=== PATIENT | female | born 1935 | race Caucasian/White ===

== ENCOUNTER → 2016-09-19 | Day surgery (SDC) | payer OTHER ==
[2016-09-14 15:28] VITALS: Ht 157.5 cm; Wt 71.8 kg
[~2016-09-19] VITALS: Ht 157.5 cm; Wt 71.8 kg
[~2016-09-19] MED LIST: ANT125 PO; ASPI-435 PO; ATV5X PO; CARV3.122 PO; CHOL100010 PO; CLOB-65 EXT; COEN75CA PO; CRFL PO; CRS10 PO; LIDO2SOL17 PO; LIDOCAINE HCL 2% 2 ML VIAL (20MG/ML) ONE; LISI-786 PO; LRS10 PO; NTRGSL/4 SL; OMEP40CA PO; ONDA4TAB46 PO; POTA20TA16 PO; PROPOFOL IV EMULSION 10 MG/ML 20 ML VIAL IV ONE; SODIUM CHLORIDE 0.9% 500ML 500 ML IV ONE
--- NOTE | 2016-09-19 09:42 | Endo History and Physical ---
History & Physical Date of Service: Sep 19, 2016. Chief Complaint: Abdominal bloating Referring Physician: Agustina Brcieno History of Present Illness bloating for 8 weeks; poor appetite, weight loss; dysphagia Past Medical History Angioplasty/Stent, Osteoporosis, Arthritis, Gastrointestinal Disorder, Reflux, Cancer, High Cholesterol, CABG, Hypertension, [place] Past Surgical History Hx Cardiac Surgery: Yes (HEART CATH, STENT X3, CABG X3 VESSELS) Hx Internal Defibrillator: No Hx Pacemaker: No Hx Abdominal Surgery: Yes (COLON RESECTION WITH BLADDER REPAIR, DENA) Hx of Implantable Prosthesis: No Hx Post-Op Nausea and Vomiting: No Hx Cancer Surgery: Yes (RT BREAST LUMPECTOMY AND LT BREAST PARTIAL MASTECTOMY) Hx Thoracic Surgery: No Hx Orthopedic: No Hx Urinary Tract Surgery: No Family History Colon CA Social History Smoking Status: Never Smoker Hx Substance Use: No Hx Alcohol Use: No Allergies Coded Allergies: Niacin (Verified Allergy, Severe, ANAPHYLAXIS, 09/14/16) Sulfa Antibiotics (Verified Allergy, Severe, Tongue Soreness,MOUTH/THROAT SWELLING, 09/14/16) mouth and throat swelling Penicillins (Verified Allergy, Intermediate, Hives, 09/14/16) hives Clarithromycin (Verified Allergy, Mild, Rash, Diarrhea , Shakiness, 09/14/16 ) Doxycycline (Verified Allergy, Unknown, Unknown, 09/14/16) Isosorbide Nitrate (Verified Allergy, Unknown, Unknown, 09/14/16) Ciprofloxacin (Verified Adverse Reaction, Intermediate, Heart Races, ) Metoclopramide (Verified Adverse Reaction, Intermediate, Migraines, 09/14/16 ) Ezetimibe (Verified Adverse Reaction, Mild, Stomach Cramps, 09/14/16) Gemfibrozil (Verified Adverse Reaction, Mild, Nausea, Heaviness in extremities,Muscle fatigue, 09/14/16) Morphine and Related (Verified Adverse Reaction, Mild, Nausea, 09/14/16) Nitrofurantoin (Verified Adverse Reaction, Mild, Headache/ Stomach pain, ) Statins (Verified Adverse Reaction, Mild, WEAKNESS IN ARMS AND LEGS, ) weakness in arms and legs Current Medications Reported Home Medications Medications Dose Route/Sig Max Daily Dose Days Date Category Klor-Con (Potassium Chloride) 20 Meq Tabcr 10 Meq PO NOON 04/14/15 Reported Prilosec (Omeprazole) 40 Mg Capcr 40 Mg PO BID 01/27/15 Reported Viscous Lidocaine 2% Soln (Lidocaine HCl) Soln 1 Tsp PO Q6H PRN 01/27/15 Reported Zofran (Ondansetron HCl) 4 Mg Tab 4 Mg PO Q6H PRN 01/27/15 Reported Baclofen 10 Mg Tab 10 Mg PO TID PRN 01/27/15 Reported Nitrostat (Nitroglycerin) 0.4 Mg Tab 1 Tab SL UD PRN 01/27/15 Reported Zestoretic (Lisinopril & Hydrochlorothiazi) 1 Tab Tab 10-12.5 Mg PO QAM 01/27/15 Reported Carafate (Sucralfate) 1 Gm/10 Ml Clarisa 10 Ml PO QID 08/20/14 Reported Meclizine HCl 12.5 Mg Tab 25 Mg PO PRN 08/20/14 Reported Temovate 0.05% (Clobetasol Propionate) Cr 1 Appln EXT PRN 03/29/14 Reported Lorazepam 0.5 Mg Tab 0.5 Mg PO HS PRN 10/09/13 Reported Vitamin D (Cholecalciferol) 1,000 Inter.unit Tab 2,000 Inter.unit PO QAM 10/09/13 Reported Co Q-10 (Coenzyme Q10 (Ubidecarenone)) 75 Mg Cap 100 Mg PO QAM 10/09/13 Reported Aspirin 81 (Aspirin) 81 Mg Tab 81 Mg PO HS 10/09/13 Reported Crestor (Rosuvastatin Calcium) 10 Mg Tab 10 Mg PO HS 10/09/13 Reported Coreg (Carvedilol) 3.125 Mg Tab 3.125 Tab PO BID 10/09/13 Reported Vital Signs Weight (Kilograms): 71.82 Height (Feet): 5 Height (Inches): 2 Physical Exam General Appearance: WD/WN, no apparent distress Assessment and Plan EGD today
--- NOTE | 2016-09-19 10:19 | GI REPORT ---
Procedure Date: 09/19/2016 9:35 AM Procedure: Upper GI endoscopy Indications: Anorexia, Abdominal bloating Medicines: Propofol per Anesthesia Complications: No immediate complications. Estimated Blood Loss: Estimated blood loss was minimal. Procedure: Pre-Anesthesia Assessment: - Prior to the procedure, a History and Physical was performed, and patient medications, allergies and sensitivities were reviewed. The patient's tolerance of previous anesthesia was reviewed. - The risks and benefits of the procedure and the sedation options and risks were discussed with the patient. All questions were answered and informed consent was obtained. - Patient identification and proposed procedure were verified prior to the procedure by the physician and the nurse. The procedure was verified in the pre-procedure area in the procedure room. - Mental Status Examination: alert and oriented. Airway Examination: normal oropharyngeal airway and neck mobility. Respiratory Examination: clear to auscultation. CV Examination: normal. Abdominal Examination: bowel sounds present, abdomen soft and non-tender, no masses or organomegaly noted. - ASA Grade Assessment: III - A patient with severe systemic disease. After obtaining informed consent, the endoscope was passed under direct vision. Throughout the procedure, the patient's blood pressure, pulse, and oxygen saturations were monitored continuously. The Scope was introduced through the mouth, and advanced to the second part of duodenum. The upper GI endoscopy was accomplished without difficulty. The patient tolerated the procedure well. Findings: The esophagus was normal. The entire examined stomach was normal. Biopsies were taken with a cold forceps for Helicobacter pylori testing. Verification of patient identification for the specimen was done by the physician and nurse using the patient's name and date. Estimated blood loss was minimal. The examined duodenum was normal. Impression: - Normal esophagus. - Normal stomach. Biopsied. - Normal examined duodenum. Recommendation: - Await pathology results. - Follow an antireflux regimen. - Continue present medications. - Return to primary care physician as previously scheduled. - Discharge patient to home. Delphine Guan D.O. Delphine Guan DO 09/19/2016 10:18:47 AM This report has been signed electronically. Note Initiated On: 09/19/2016 9:35 AM I attest to the content of the Intraoperative Record and orders documented therein, exceptions below
--- NOTE | 2016-09-19 10:27 | Anesthesiology Progress Note ---
Anesthesia Post Op Note Date & Time Sep 19, 2016 at 10:27 Vital Signs Pain Intensity: 0 Vital Signs Past 12 Hours Date Time Temp Pulse Resp B/P (MAP) Pulse Ox O2 Delivery O2 Flow Rate FiO2 09/19/16 10:18 54 12 128/62 (84) 98 Room Air 09/19/16 09:36 36.4 55 20 128/62 (84) 97 Room Air Notes Mental Status: alert / awake / arousable, participated in evaluation Pt Amnestic to Procedure: Yes Nausea / Vomiting: adequately controlled Pain: adequately controlled Airway Patency, RR, SpO2: stable & adequate BP & HR: stable & adequate Hydration State: stable & adequate Anesthetic Complications: no major complications apparent
--- NOTE | 2016-09-19 10:41 | Discharge Instructions ---
Endoscopy Patient Instructions Date / Procedure(s) Performed Sep 19, 2016. EGD Allergy Information Coded Allergies: Niacin (Verified Allergy, Severe, ANAPHYLAXIS, 09/14/16) Sulfa Antibiotics (Verified Allergy, Severe, Tongue Soreness,MOUTH/THROAT SWELLING, 09/14/16) mouth and throat swelling Penicillins (Verified Allergy, Intermediate, Hives, 09/14/16) hives Clarithromycin (Verified Allergy, Mild, Rash, Diarrhea , Shakiness, 09/14/16 ) Doxycycline (Verified Allergy, Unknown, Unknown, 09/14/16) Isosorbide Nitrate (Verified Allergy, Unknown, Unknown, 09/14/16) Ciprofloxacin (Verified Adverse Reaction, Intermediate, Heart Races, ) Metoclopramide (Verified Adverse Reaction, Intermediate, Migraines, 09/14/16 ) Ezetimibe (Verified Adverse Reaction, Mild, Stomach Cramps, 09/14/16) Gemfibrozil (Verified Adverse Reaction, Mild, Nausea, Heaviness in extremities,Muscle fatigue, 09/14/16) Morphine and Related (Verified Adverse Reaction, Mild, Nausea, 09/14/16) Nitrofurantoin (Verified Adverse Reaction, Mild, Headache/ Stomach pain, ) Statins (Verified Adverse Reaction, Mild, WEAKNESS IN ARMS AND LEGS, ) weakness in arms and legs Discharge Date / Findings Sep 19, 2016. normal EGD Medication Instructions Restart Stopped Medication(s): OK to resume all medications Provider Instructions Activity Restrictions - No exercising or heavy lifting for 24 hours. - Do not drink alcohol the day of the procedure. - Do not drive a car or operate machinery until the day after the procedure. - Do not make any important decisions or sign important papers in 24 hours after the procedure. Following Day: - Return to full activity which may include returning to work/school. Diet Start your diet with liquids and light foods (jello, soup, juice, toast). Then eat your usual diet if not nauseated. Treatment For Common After Affects For mild abdominal pain, bloating, or excessive gas: - Rest - Eat lightly - Lie on right side Follow-Up Information Follow-up with Agustina Briceno as scheduled Anesthesia Information What You Should Know You have had a procedure that required some medicine to reduce anxiety and discomfort. This treatment is called moderate sedation. After receiving the treatment, you may be sleepy, but you will be able to breathe on your own. The effects of the treatment may last for several hours. Follow these instructions along with Activity/Diet recommendations noted above: * Do NOT do anything where dizziness or clumsiness would be dangerous. * Rest quietly at home today, then you can be up and about tomorrow. * Have a responsible person stay with you the rest of today. * You may have had an I.V. today. If so, you may take the dressing off later today. Recommendations Call your doctor if: * Trouble breathing * Continuous vomiting for more than 24 hours * Temperature above 101 degrees * Severe abdominal pain or bloating * Pain not relieved by pain medicine ordered * There is increased drainage or redness from any incision * A large amount of rectal bleeding greater than 2-3 tablespoons. (If you had a polyp/s removed or have hemorrhoids, a small amount of blood - from the rectum is to be expected.) * You have any unanswered questions or concerns. IN THE EVENT OF A SERIOUS EMERGENCY, GO TO THE NEAREST EMERGENCY ROOM Your discharge instructions were prepared by provider Delphine Guan. Patient Instructions Signature Page Rin Jj Patient (or Guardian) Signature/Date: I have read and understand the instructions given to me by my caregivers. Caregiver/RN/Doctor Signature/Date: The above-named patient and/or guardian has received patient instructions on this date. + Original Patient Signature Page (only) stays with chart. Please make copy for patient.
[2016-09-19 10:48] VITALS: BP 151/62; PULSE 50; O2SAT 98
== END | disposition home or self-care (01) ==
LOC: C.GI 08:58
PROVIDERS: ATTEND Internal Medicine
DX: R14.0 Abdominal distension (gaseous) (principal); R63.0 Anorexia; R63.4 Abnormal weight loss; R13.10 Dysphagia, unspecified; Z95.5 Presence of coronary angioplasty implant and graft; M81.0 Age-related osteoporosis without current pathological fracture; M19.90 Unspecified osteoarthritis, unspecified site; K21.9 Gastro-esophageal reflux disease without esophagitis; E78.00 Pure hypercholesterolemia, unspecified; I10 Essential (primary) hypertension; Z90.49 Acquired absence of other specified parts of digestive tract; Z79.82 Long term (current) use of aspirin; I25.2 Old myocardial infarction; I25.10 Atherosclerotic heart disease of native coronary artery without angina pectoris; Z85.3 Personal history of malignant neoplasm of breast

== ENCOUNTER 2017-04-19 15:57 | Emergency (ER) | payer OTHER ==
[~2017-04-19] VITALS: Ht 157.5 cm; Wt 75.0 kg
[~2017-04-19 15:57] MED LIST changes: -LIDOCAINE HCL 2% 2 ML VIAL (20MG/ML) ONE; -NTRGSL/4 SL; -PROPOFOL IV EMULSION 10 MG/ML 20 ML VIAL IV ONE; -SODIUM CHLORIDE 0.9% 500ML 500 ML IV ONE
[2017-04-19 16:12] VITALS: Ht 157.5 cm; Wt 75.0 kg
[2017-04-19] MEDS ORDERED: NTRGSL/4 SL (18:42)
[2017-04-19 19:17] VITALS: O2SAT 95
[2017-04-19 19:29] LABS: BASO % 0.1 %; BASO ABS # 0.01 K/uL (0-0.2); EOS % 0.4 %; EOS ABS # 0.03 K/uL (0-0.5); HEMATOCRIT 43.3 % (37-47); HEMOGLOBIN 14.6 g/dL (12.0-16.0); IG# 0.03 K/uL (0.00-0.02); LYMPH % 17.4 %; LYMPH ABS # 1.41 K/uL (1.2-3.4); MEAN CELL VOLUME 93.3 fL (80-100); MEAN CORPUSCULAR HEMOGLOBIN 31.5 pg (25-34); MEAN CORPUSCULAR HGB CONC 33.7 g/dl (32-36); MEAN PLATELET VOLUME 10.1 fL (7.4-10.4); MONO % 5.9 %; MONO ABS # 0.48 K/uL (0.11-0.59); NEUT % 75.8 %; NEUT ABS # 6.15 K/uL (1.4-6.5); PLATELET COUNT 177 K/uL (130-400); RED CELL DISTRIBUTION WIDTH CV 15.2 % (11.5-14.5); RED CELL DISTRIBUTION WIDTH SD 51.7 fL (36.4-46.3); WHITE BLOOD COUNT 8.11 K/uL (4.8-10.8)
[2017-04-19 19:47] LABS: ALBUMIN 3.8 gm/dl (3.4-5.0); CALCIUM 9.3 mg/dl (8.5-10.1); CREATININE 1.24 mg/dl (0.60-1.20); POTASSIUM 3.6 mmol/L (3.5-5.1)
[2017-04-19 19:52] LABS: TOTAL PROTEIN 8.1 gm/dl (6.4-8.2)
[2017-04-19] MEDS ORDERED: SODIUM CHLORIDE 0.9% 500ML 500 ML IV STA (19:59)
--- NOTE | 2017-04-19 20:00 | DIAGNOSTIC IMAGING REPORT ---
CHEST ONE VIEW PORTABLE CLINICAL HISTORY: CHEST PAIN dyspnea COMPARISON STUDY: 01/27/2015 FINDINGS: Prior median sternotomy. Diaphragms are smooth. Lungs are considered clear. Minimal plate like atelectasis left midlung. IMPRESSION: Chronic and postoperative change. No acute process. The above report was generated using voice recognition software. It may contain grammatical, syntax or spelling errors. Electronically signed by: Herberth Mullen M.D. 04/19/2017 7:58 PM Dictated Date/Time: 04/19/2017 7:58 PM
[2017-04-19] MEDS ORDERED: CRFL PO (20:20)
[2017-04-19] MEDS ORDERED: ANT25 PO (20:20)
[2017-04-19] MEDS ORDERED: PRED-301 PO (20:20)
[2017-04-19] MEDS ORDERED: TIZA4CAP PO (20:20)
[2017-04-19] MEDS ORDERED: OMEP40CA41 PO (20:20)
[2017-04-19] MEDS ORDERED: ULT50 PO (20:20)
[2017-04-19] MEDS ORDERED: APR25 PO (20:20)
[2017-04-19] MEDS ORDERED: CRS/10 PO (20:20)
[2017-04-19] MEDS ORDERED: PRD/1 PO (20:20)
[2017-04-19] MEDS ORDERED: ACET-1256 PO (20:20)
[2017-04-19] MEDS ORDERED: CHOL100027 PO (20:20)
[2017-04-19] MEDS ORDERED: LSN/10125 PO (20:20)
--- NOTE | 2017-04-19 20:23 | EMERGENCY ROOM VISIT NOTE ---
History Report prepared by [place]: Tanya Luna Under the Supervision of: Gm HassanO. First contact with patient: 18:47 Chief Complaint: REFERRED BY DOCTOR Stated Complaint: HIGH BLOOD PRESSURE;DOC REFERRED History of Present Illness The patient is a 82 year old female who presents to the Emergency Room with complaints of persistent hypertension that began around 0230. The patient states that she woke up around 0230 this morning and noticed her mouth was very dried and she had some pain on the back of her head. She reports that she stayed up most of the night because she was worried it did not feel right, noting that she took her medication for hypertension. The patient states that she was able to fall asleep around 0500 and woke up around 0730, noting that her symptoms had not relieved. At this time when the patient checked her blood pressure it was 218/100. She notes that she contacted her real property appraiser who suggested she come to the Emergency Department for further evaluation. The patient denies any current discomfort, shortness of breath, nausea, vomiting, diarrhea, headaches, difficulty walking, or chest pain. She notes that her hypertension medication has been altered recently because she was experiencing very low blood pressures. The patient states that she has a heart murmur. Source of History: patient Onset: 0230 Position: other (global) Quality: other (hypertension) Timing: other (persistent) Associated Symptoms: No headache, No chest pain, No SOB, No nausea, No vomiting, No diarrhea Note: Patient denies difficulty walking. Review of Systems See HPI for pertinent positives & negatives. A total of 10 systems reviewed and were otherwise negative. Past Medical & Surgical Medical Problems: (1) Breast cancer (2) Dizziness (3) Gastroparesis (4) HTN (hypertension) (5) CA (mitral incompetence) (6) Torturous esophagus Surgical Problems: (1) Hx of cholecystectomy (2) Hx of heart artery stent (3) S/P CABG x 3 Family History Cancer FHx: gallbladder disease Hypertension Social History Smoking Status: Never Smoker Alcohol Use: none Marital Status: Housing Status: lives with significant other Occupation Status: retired Current/Historical Medications Scheduled Aspirin (Aspirin 81), 81 MG PO HS Carvedilol (Coreg), 3.125 MG PO BID Cholecalciferol (Vitamin D 1000 Unit), 2,000 INTER.UNIT PO DAILY Clobetasol Propionate (Clobetasol Propionate Cream 0.05%), 1 APPLN EXT PRN UD Coenzyme Q10 (Ubidecarenone) (Co Q-10), 100 MG PO QAM Hctz/Lisinopril (Lisinopril/Hctz 10/12.5 Mg), 1 TAB PO DAILY Hydralazine Hcl (Apresoline), 0.5 TAB PO TID Prednisone (Prednisone), MG PO UD Prednisone (Prednisone), 5 MG PO DAILY Rosuvastatin Calcium (Crestor), 10 MG PO DAILY Scheduled PRN Acetaminophen (Tylenol), 1,000 MG PO Q6 PRN for Pain or Fever Dicyclomine Hcl (Bentyl), 10 MG PO BID PRN for ABD PAIN Lorazepam (Lorazepam), 0.5 MG PO Q8 PRN for Anxiety Meclizine HCl (Meclizine HCl), 25 MG PO TID PRN for Dizziness or Vertigo Nitroglycerin (Nitrostat), 1 TAB SL UD PRN for Chest Pain Omeprazole (Prilosec), 40 MG PO BID PRN for ACID REFLUX Sucralfate (Carafate), 10 ML PO QID PRN for Tizanidine (Zanaflex), 2 MG PO Q6 PRN for Muscle Spasms Tramadol HCl (Tramadol HCl), 0.5 TAB PO Q8 PRN for Pain Allergies Coded Allergies: Domperidone (Verified Allergy, Severe, HEADACE, ITCHING, STOMACH PAIN, 04/19) Lovastatin (Verified Allergy, Severe, MUSCLE PAIN, 04/19/17) Niacin (Verified Allergy, Severe, ANAPHYLAXIS, 09/14/16) Sulfa Antibiotics (Verified Allergy, Severe, Tongue Soreness,MOUTH/THROAT SWELLING, 09/14/16) mouth and throat swelling Penicillins (Verified Allergy, Intermediate, Hives, 09/14/16) hives Clarithromycin (Verified Allergy, Mild, Rash, Diarrhea , Shakiness, 09/14/16 ) Doxycycline (Verified Allergy, Unknown, Unknown, 09/14/16) Isosorbide Nitrate (Verified Allergy, Unknown, Unknown, 09/14/16) Amlodipine (Verified Adverse Reaction, Severe, NAUSEA/VOMITING, 04/19/17) Atorvastatin (Verified Adverse Reaction, Intermediate, MUSCLE ACHES, ) Ciprofloxacin (Verified Adverse Reaction, Intermediate, Heart Races, ) Metoclopramide (Verified Adverse Reaction, Intermediate, Migraines, 09/14/16 ) Ezetimibe (Verified Adverse Reaction, Mild, Stomach Cramps, 09/14/16) Gemfibrozil (Verified Adverse Reaction, Mild, Nausea, Heaviness in extremities,Muscle fatigue, 09/14/16) Morphine and Related (Verified Adverse Reaction, Mild, Nausea, 09/14/16) Nitrofurantoin (Verified Adverse Reaction, Mild, Headache/ Stomach pain, ) Statins (Verified Adverse Reaction, Mild, WEAKNESS IN ARMS AND LEGS, ) weakness in arms and legs Physical Exam Vital Signs Date Time Temp Pulse Resp B/P (MAP) Pulse Ox O2 Delivery O2 Flow Rate FiO2 04/19/17 21:50 36.7 59 20 180/80 95 04/19/17 21:32 59 20 180/80 95 Room Air 04/19/17 20:50 62 20 203/86 Room Air 04/19/17 20:06 69 20 198/107 93 Room Air 04/19/17 19:31 60 19 119/54 95 Room Air 04/19/17 19:30 66 04/19/17 19:17 95 Room Air 04/19/17 16:12 36.7 70 16 138/73 95 Room Air Physical Exam GENERAL: Patient is awake, alert, and in no acute distress. Patient is resting comfortably and showing no signs of anxiety EYES: The conjunctivae are clear. The pupils are round and reactive. EARS, NOSE, MOUTH AND THROAT: The nose is without any evidence of any deformity. Mucous membranes are moist tongue is midline NECK: The neck is nontender and supple. RESPIRATORY: Normal respiratory effort is noted there is no evidence of wheezing rhonchi or rales CARDIOVASCULAR: Regular rate and rhythm noted, systolic murmur was suggested, and no rubs or gallops normal S1 normal S2 GASTROINTESTINAL: The abdomen is soft. Bowel sounds are present in all quadrants. Abdomen is nontender MUSCULOSKELETAL/EXTREMITIES: There is no evidence of gross deformity full range of motion is noted in the hips and shoulders SKIN: There is no obvious evidence of any rash. There are no petechiae, pallor or cyanosis noted. NEUROLOGIC: Patient is awake alert and oriented x3 strength is symmetric patellar reflexes are 2+ bilaterally Medical Decision & Procedures ER Provider Diagnostic Interpretation: Radiology results as stated below per my review and radiologist interpretation: CHEST ONE VIEW PORTABLE CLINICAL HISTORY: CHEST PAIN dyspnea COMPARISON STUDY: 01/27/2015 FINDINGS: Prior median sternotomy. Diaphragms are smooth. Lungs are considered clear. Minimal plate like atelectasis left midlung. IMPRESSION: Chronic and postoperative change. No acute process. The above report was generated using voice recognition software. It may contain grammatical, syntax or spelling errors. Electronically signed by: Herberth Mullen M.D. 04/19/2017 7:58 PM Dictated Date/Time: 04/19/2017 7:58 PM Laboratory Results 04/19/17 19:10 Red Blood Count 4.64, Mean Corpuscular Volume 93.3, Mean Corpuscular Hemoglobin 31.5, Mean Corpuscular Hemoglobin Concent 33.7, Mean Platelet Volume 10.1, Neutrophils (%) (Auto) 75.8, Lymphocytes (%) (Auto) 17.4, Monocytes (%) (Auto) 5.9, Eosinophils (%) (Auto) 0.4, Basophils (%) (Auto) 0.1, Neutrophils # (Auto) 6.15, Lymphocytes # (Auto) 1.41, Monocytes # (Auto) 0.48, Eosinophils # (Auto) 0.03, Basophils # (Auto) 0.01 04/19/17 19:10 Test 04/19/17 19:10 White Blood Count 8.11 K/uL (4.8-10.8) Red Blood Count 4.64 M/uL (4.2-5.4) Hemoglobin 14.6 g/dL (12.0-16.0) Hematocrit 43.3 % (37-47) Mean Corpuscular Volume 93.3 fL (80-100) Mean Corpuscular Hemoglobin 31.5 pg (25-34) Mean Corpuscular Hemoglobin Concent 33.7 g/dl (32-36) Platelet Count 177 K/uL (130-400) Mean Platelet Volume 10.1 fL (7.4-10.4) Neutrophils (%) (Auto) 75.8 % Lymphocytes (%) (Auto) 17.4 % Monocytes (%) (Auto) 5.9 % Eosinophils (%) (Auto) 0.4 % Basophils (%) (Auto) 0.1 % Neutrophils # (Auto) 6.15 K/uL (1.4-6.5) Lymphocytes # (Auto) 1.41 K/uL (1.2-3.4) Monocytes # (Auto) 0.48 K/uL (0.11-0.59) Eosinophils # (Auto) 0.03 K/uL (0-0.5) Basophils # (Auto) 0.01 K/uL (0-0.2) RDW Standard Deviation 51.7 fL (36.4-46.3) RDW Coefficient of Variation 15.2 % (11.5-14.5) Immature Granulocyte % (Auto) 0.4 % Immature Granulocyte # (Auto) 0.03 K/uL (0.00-0.02) Anion Gap 5.0 mmol/L (3-11) Est Creatinine Clear Calc Drug Dose 33.7 ml/min Estimated GFR () 47.2 Estimated GFR (Non- 40.7 BUN/Creatinine Ratio 17.2 (10-20) Calcium Level 9.3 mg/dl (8.5-10.1) Total Bilirubin 0.5 mg/dl (0.2-1) Direct Bilirubin 0.1 mg/dl (0-0.2) Aspartate Amino Transf (AST/SGOT) 16 U/L (15-37) Alanine Aminotransferase (ALT/SGPT) 28 U/L (12-78) Alkaline Phosphatase 65 U/L (45-117) Troponin I 0.019 ng/ml (0-0.045) Total Protein 8.1 gm/dl (6.4-8.2) Albumin 3.8 gm/dl (3.4-5.0) Lipase 138 U/L (73-393) Medications Administered Medications (Trade) Dose Ordered Sig/Fabricio Route Start Time Stop Time Status Last Admin Dose Admin Sodium Chloride 500 ml @ 999 mls/hr Q31M STAT IV 04/19/17 19:59 04/19/17 20:29 DC 04/19/17 20:09 999 MLS/HR ECG Indication: other (hypertension) Rate (beats per minute): 60 Rhythm: normal sinus Findings: no ectopy, other (no acute ST abnormalities and LVF noted) Change: no significant change (01/27/15) Change: Patient's electrocardiogram as interpreted by me. ED Course 1848: The patient was evaluated in room B8. A complete history and physical examination were performed. 1958: Ordered Sodium Chloride 500ml @ 999 mls/hr IV. 2019: Upon reevaluation, the patient is resting comfortably. I discussed the results and treatment plan with her. She verbalized agreement of the treatment plan. The patient was discharged home. Medical Decision Prior records/ancillary studies reviewed regarding the history above. Triage Nursing notes reviewed. The patient's history was concerning for hypertension. Differential diagnosis: Etiologies such as benign hypertension, hypertensive emergency, cardiovascular pathology, pheochromocytoma, electrolyte abnormality, renal disease, endorgan damage, as well as others were entertained. Patient is an 82-year-old female who presented to the emergency department for an evaluation of elevated blood pressure. At this time the patient does not have any symptoms. She denies having any chest pain or shortness of breath. She has no focal neurologic deficits. I discussed the patient's laboratory and radiographic studies with her. She was found to have a mild elevation in her creatinine compared to baseline. She was treated with IV fluids. She continued to have an elevation in her blood pressure. She recently had her blood pressure medications decreased. She was encouraged to go back to her original dose of her blood pressure medication and then follow-up with her primary care physician for further evaluation. She was also encouraged to rest and avoid any strenuous activity. He was also encouraged to return the emergency department immediately if symptoms change or worsen or the need arises. Medication Reconcilliation Current Medication List: was personally reviewed by me Blood Pressure Screening Patient's blood pressure: Elevated blood pressure Blood pressure disposition: Elevated BP felt to be situational Impression Primary Impression: HTN (hypertension) Additional Impression: Dehydration Scribe Attestation The scribe's documentation has been prepared under my direction and personally reviewed by me in its entirety. I confirm that the note above accurately reflects all work, treatment, procedures, and medical decision making performed by me. Departure Information Dispostion Home / Self-Care Referrals Iftikhar Frye D.O. (PCP) Forms HOME CARE DOCUMENTATION FORM, IMPORTANT VISIT INFORMATION, WORK / SCHOOL INSTRUCTIONS Patient Instructions My [facility] Problem Qualifiers Primary Impression: HTN (hypertension) Hypertension type: unspecified Qualified Codes: I10 - Essential (primary) hypertension
[2017-04-19] MEDS ORDERED: CLBCRM30 EXT (20:39)
[2017-04-19] MEDS ORDERED: DICY10CA55 PO (20:42)
[2017-04-19] MEDS ORDERED: CARV3.122 PO (20:42)
[2017-04-19 21:50] VITALS: BP 180/80; PULSE 59; TEMP 36.7; O2SAT 95
== END 2017-04-19 21:50 | disposition home or self-care (01) ==
LOC: C.EDB 15:58
DX: I10 Essential (primary) hypertension (principal); E86.0 Dehydration; R79.89 Other specified abnormal findings of blood chemistry; R01.1 Cardiac murmur, unspecified; I34.0 Nonrheumatic mitral (valve) insufficiency; Z95.1 Presence of aortocoronary bypass graft; Z95.5 Presence of coronary angioplasty implant and graft; Z79.82 Long term (current) use of aspirin; Z79.52 Long term (current) use of systemic steroids; Z88.8 Allergy status to other drugs, medicaments and biological substances; Z88.0 Allergy status to penicillin; Z88.2 Allergy status to sulfonamides; Z88.1 Allergy status to other antibiotic agents; Z88.6 Allergy status to analgesic agent; Z82.49 Family history of ischemic heart disease and other diseases of the circulatory system; Z83.79 Family history of other diseases of the digestive system

== ENCOUNTER 2017-08-02 12:30 | Emergency (ER) | payer OTHER ==
[~2017-08-02] VITALS: Ht 157.5 cm; Wt 73.4 kg
[~2017-08-02 12:30] MED LIST changes: +ACET-1256 PO; -ANT125 PO; +ANT25 PO; +APR25 PO; -CHOL100010 PO; +CHOL100027 PO; +CLBCRM30 EXT; -CLOB-65 EXT; +CRS/10 PO; -CRS10 PO; +DICY10CA55 PO; -LIDO2SOL17 PO; -LISI-786 PO; -LRS10 PO; +LSN/10125 PO; +NTRGSL/4 SL; -OMEP40CA PO; +OMEP40CA41 PO; -ONDA4TAB46 PO; -POTA20TA16 PO; +PRD/1 PO; +PRED-301 PO; +TIZA4CAP PO; +ULT50 PO
[2017-08-02 12:52] VITALS: TEMP 36.8; Ht 157.5 cm; Wt 73.4 kg
[2017-08-02] MEDS ORDERED: ONDANSETRON INJ 2 MG/ML 2 ML VIAL IV STA (13:21)
[2017-08-02] MEDS ORDERED: OPTIRAY 320 IV PRN (13:30)
[2017-08-02] MEDS ORDERED: LISI-729 PO (14:59)
[2017-08-02] MEDS ORDERED: PRED-301 PO (15:00)
[2017-08-02 15:09] LABS: BASO % 0.5 %; BASO ABS # 0.03 K/uL (0-0.2); EOS % 1.7 %; EOS ABS # 0.11 K/uL (0-0.5); HEMATOCRIT 42.4 % (37-47); IG# 0.01 K/uL (0.00-0.02); MEAN CELL VOLUME 95.9 fL (80-100); MEAN CORPUSCULAR HEMOGLOBIN 31.7 pg (25-34); MEAN PLATELET VOLUME 10.8 fL (7.4-10.4); MONO % 7.1 %; MONO ABS # 0.45 K/uL (0.11-0.59); NEUT % 71.5 %; NEUT ABS # 4.51 K/uL (1.4-6.5); PLATELET COUNT 208 K/uL (130-400); RED CELL DISTRIBUTION WIDTH CV 13.5 % (11.5-14.5); RED CELL DISTRIBUTION WIDTH SD 47.1 fL (36.4-46.3); WHITE BLOOD COUNT 6.31 K/uL (4.8-10.8)
[2017-08-02 15:28] LABS: ALBUMIN 3.8 gm/dl (3.4-5.0); CALCIUM 9.1 mg/dl (8.5-10.1); CREATININE 1.3 mg/dl (0.60-1.20); POTASSIUM 3.8 mmol/L (3.5-5.1)
--- NOTE | 2017-08-02 15:51 | DIAGNOSTIC IMAGING REPORT ---
CT SCAN OF THE ABDOMEN AND PELVIS WITH IV CONTRAST CLINICAL HISTORY: Lower abdominal pain. COMPARISON STUDY: Fluoroscopic upper GI series dated 06/27/2012. TECHNIQUE: Following the IV administration of 93 cc of Optiray 320, CT scan of the abdomen and pelvis is performed from the lung bases to the proximal femora. Images are reviewed in the axial, sagittal, and coronal planes. IV contrast was administered without complication. A dose lowering technique was utilized adhering to the principles of ALARA. CT DOSE: 938.74 mGycm FINDINGS: Lung bases: The patient is status post midline sternotomy. The heart is mildly enlarged and without pericardial effusion. The coronary arteries are densely calcified. Scarring versus atelectasis is noted in the lingula. The lung bases are otherwise clear. Liver: The contrast-enhanced liver is normal in size, contour, and attenuation. Fatty infiltration is noted adjacent to falciform ligament. There is no intrahepatic biliary ductal dilatation. The hepatic veins and portal veins are patent. Gallbladder: Surgically absent. Spleen: Normal in size and attenuation. Pancreas: Atrophic and grossly unremarkable. Adrenal glands: Unremarkable. Kidneys: The contrast enhanced kidneys are atrophic and without hydronephrosis. The kidneys enhance symmetrically. Scattered subcentimeter cortical hypodensities likely represent cysts but are too small for definitive characterization. Abdominal vasculature: The abdominal aorta is normal in course and caliber noting advanced atherosclerotic calcification. Bowel: There is mild to moderate colonic diverticulosis without CT evidence of acute diverticulitis. No bowel obstruction is seen. The appendix is well-visualized and normal. Peritoneum: There is no intraperitoneal free air or abdominal ascites. Lymphadenopathy: None. Pelvic viscera: The bladder, uterus, and adnexa are normal as visualized. Skeletal structures: The skeletal structures are osteopenic. There is [id number] lumbosacral spondylosis. No lytic or blastic lesions are seen. There are bilateral pars defects at L5. IMPRESSION: 1. There are no acute infectious or inflammatory findings in the abdomen or pelvis. 2. Mild to moderate colonic diverticulosis without CT evidence of acute diverticulitis. 3. Cardiomegaly. Electronically signed by: Scotty Dominguez M.D. 08/02/2017 3:50 PM Dictated Date/Time: 08/02/2017 3:44 PM
[2017-08-02 17:01] VITALS: BP 175/70; PULSE 69; O2SAT 94
--- NOTE | 2017-08-02 18:56 | EMERGENCY ROOM VISIT NOTE ---
History Report prepared by [place]: Emelyn Kahn Under the Supervision of: Dr. Janak Duran M.D. First contact with patient: 13:14 Chief Complaint: ABDOMINAL PAIN Stated Complaint: BLOOD PRESSURE,ABD PAIN History of Present Illness The patient is an 82 year old female who presents to the Emergency Room with complaints of lower abdominal pain beginning 2 weeks ago. She describes the pain as cramping and states that it also radiates to her upper abdomen. The patient states that eating exacerbates her pain. She reports feeling nauseous and having diarrhea, but denies vomiting, chest pain, and shortness of breath. She states that her diarrhea has not been bloody. The patient states that she has been taking liquid antacid reliever which she states may have been causing her diarrhea as it has in the past. She denies recent foreign travel and antibiotic use. Source of History: patient Onset: 2 weeks ago Position: abdomen (lower) Quality: cramping Modifying Factors (Worsening): eating Associated Symptoms: + nausea, + diarrhea, No chest pain, No SOB, No vomiting, No melena, No hematochezia Note: denies: bloody diarrhea Review of Systems See HPI for pertinent positives & negatives. A total of 10 systems reviewed and were otherwise negative. Past Medical & Surgical Medical Problems: (1) Breast cancer (2) Dizziness (3) Gastroparesis (4) HTN (hypertension) (5) OK (mitral incompetence) (6) Torturous esophagus Surgical Problems: (1) Hx of cholecystectomy (2) Hx of heart artery stent (3) S/P CABG x 3 Family History Cancer FHx: gallbladder disease Hypertension Social History Smoking Status: Never Smoker Alcohol Use: none Marital Status: Housing Status: lives with significant other Occupation Status: retired Current/Historical Medications Scheduled Aspirin (Aspirin 81), 81 MG PO HS Carvedilol (Coreg), 3.125 MG PO BID Cholecalciferol (Vitamin D 1000 Unit), 2,000 INTER.UNIT PO DAILY Clobetasol Propionate (Clobetasol Propionate Cream 0.05%), 1 APPLN EXT PRN UD Coenzyme Q10 (Ubidecarenone) (Co Q-10), 100 MG PO QAM Lisinopril (Zestril), 5 MG PO DAILY Prednisone (Prednisone), 5 MG PO DAILY Rosuvastatin Calcium (Crestor), 10 MG PO DAILY Scheduled PRN Acetaminophen (Tylenol), 1,000 MG PO Q6 PRN for Pain or Fever Dicyclomine Hcl (Bentyl), 10 MG PO BID PRN for ABD PAIN Lorazepam (Lorazepam), 0.5 MG PO Q8 PRN for Anxiety Meclizine HCl (Meclizine HCl), 25 MG PO TID PRN for Dizziness or Vertigo Nitroglycerin (Nitrostat), 1 TAB SL UD PRN for Chest Pain Omeprazole (Prilosec), 40 MG PO BID PRN for ACID REFLUX Tramadol HCl (Tramadol HCl), 0.5 TAB PO Q8 PRN for Pain Allergies Coded Allergies: Domperidone (Verified Allergy, Severe, HEADACE, ITCHING, STOMACH PAIN, ) Lovastatin (Verified Allergy, Severe, MUSCLE PAIN, 08/02/17) Niacin (Verified Allergy, Severe, ANAPHYLAXIS, 08/02/17) Sulfa Antibiotics (Verified Allergy, Severe, Tongue Soreness,MOUTH/THROAT SWELLING, 08/02/17) mouth and throat swelling Penicillins (Verified Allergy, Intermediate, Hives, 08/02/17) hives Clarithromycin (Verified Allergy, Mild, Rash, Diarrhea , Shakiness, ) Doxycycline (Verified Allergy, Unknown, Unknown, 08/02/17) Isosorbide Nitrate (Verified Allergy, Unknown, Unknown, 08/02/17) Amlodipine (Verified Adverse Reaction, Severe, NAUSEA/VOMITING, 08/02/17) Atorvastatin (Verified Adverse Reaction, Intermediate, MUSCLE ACHES, ) Ciprofloxacin (Verified Adverse Reaction, Intermediate, Heart Races, ) Metoclopramide (Verified Adverse Reaction, Intermediate, Migraines, ) Ezetimibe (Verified Adverse Reaction, Mild, Stomach Cramps, 08/02/17) Gemfibrozil (Verified Adverse Reaction, Mild, Nausea, Heaviness in extremities,Muscle fatigue, 08/02/17) Morphine and Related (Verified Adverse Reaction, Mild, Nausea, 08/02/17) Nitrofurantoin (Verified Adverse Reaction, Mild, Headache/ Stomach pain, ) Statins (Verified Adverse Reaction, Mild, WEAKNESS IN ARMS AND LEGS, ) weakness in arms and legs Physical Exam Vital Signs Date Time Temp Pulse Resp B/P (MAP) Pulse Ox O2 Delivery O2 Flow Rate FiO2 08/02/17 17:01 69 18 175/70 94 08/02/17 15:52 67 18 93 Room Air 180/75 08/02/17 15:10 65 18 206/76 93 Room Air 08/02/17 13:24 63 08/02/17 12:52 36.8 86 20 133/80 95 Room Air Physical Exam Constitutional: Vital signs reviewed. Eyes: Pupils are equal round reactive to light. Conjunctiva are noninjected. ENT: Pharynx is clear without erythema or exudate. Mucous membranes are moist. Neck supple without meningeal signs. Respiratory: Clear to auscultation bilaterally. Breath sounds are equal bilaterally. Cardiovascular: Regular rate and rhythm. No rubs or gallops. GI: Soft, nondistended. Lower abdominal tenderness. No guarding. Bowel sounds are present. Musculoskeletal: No peripheral edema. No lower extremity tenderness. Integumentary: No cyanosis. Neurological: The patient is awake and alert. No focal deficits. Psychiatric: Normal affect. Medical Decision & Procedures ER Provider Diagnostic Interpretation: Radiology results as stated below per my review and the radiologist's interpretation: CT SCAN OF THE ABDOMEN AND PELVIS WITH IV CONTRAST CLINICAL HISTORY: Lower abdominal pain. COMPARISON STUDY: Fluoroscopic upper GI series dated 06/27/2012. TECHNIQUE: Following the IV administration of 93 cc of Optiray 320, CT scan of the abdomen and pelvis is performed from the lung bases to the proximal femora. Images are reviewed in the axial, sagittal, and coronal planes. IV contrast was administered without complication. A dose lowering technique was utilized adhering to the principles of ALARA. CT DOSE: 938.74 mGycm FINDINGS: Lung bases: The patient is status post midline sternotomy. The heart is mildly enlarged and without pericardial effusion. The coronary arteries are densely calcified. Scarring versus atelectasis is noted in the lingula. The lung bases are otherwise clear. Liver: The contrast-enhanced liver is normal in size, contour, and attenuation. Fatty infiltration is noted adjacent to falciform ligament. There is no intrahepatic biliary ductal dilatation. The hepatic veins and portal veins are patent. Gallbladder: Surgically absent. Spleen: Normal in size and attenuation. Pancreas: Atrophic and grossly unremarkable. Adrenal glands: Unremarkable. Kidneys: The contrast enhanced kidneys are atrophic and without hydronephrosis. The kidneys enhance symmetrically. Scattered subcentimeter cortical hypodensities likely represent cysts but are too small for definitive characterization. Abdominal vasculature: The abdominal aorta is normal in course and caliber noting advanced atherosclerotic calcification. Bowel: There is mild to moderate colonic diverticulosis without CT evidence of acute diverticulitis. No bowel obstruction is seen. The appendix is well-visualized and normal. Peritoneum: There is no intraperitoneal free air or abdominal ascites. Lymphadenopathy: None. Pelvic viscera: The bladder, uterus, and adnexa are normal as visualized. Skeletal structures: The skeletal structures are osteopenic. There is [id number] lumbosacral spondylosis. No lytic or blastic lesions are seen. There are bilateral pars defects at L5. IMPRESSION: 1. There are no acute infectious or inflammatory findings in the abdomen or pelvis. 2. Mild to moderate colonic diverticulosis without CT evidence of acute diverticulitis. 3. Cardiomegaly. Electronically signed by: Scotty Dominguez M.D. 08/02/2017 3:50 PM Dictated Date/Time: 08/02/2017 3:44 PM Laboratory Results 08/02/17 14:40 Red Blood Count 4.42, Mean Corpuscular Volume 95.9, Mean Corpuscular Hemoglobin 31.7, Mean Corpuscular Hemoglobin Concent 33.0, Mean Platelet Volume 10.8, Neutrophils (%) (Auto) 71.5, Lymphocytes (%) (Auto) 19.0, Monocytes (%) (Auto) 7.1, Eosinophils (%) (Auto) 1.7, Basophils (%) (Auto) 0.5, Neutrophils # (Auto) 4.51, Lymphocytes # (Auto) 1.20, Monocytes # (Auto) 0.45, Eosinophils # (Auto) 0.11, Basophils # (Auto) 0.03 08/02/17 14:40 Test 08/02/17 14:30 08/02/17 14:40 Urine Color YELLOW Urine Appearance CLEAR (CLEAR) Urine pH 7.5 (4.5-7.5) Urine Specific [place] 1.008 (1.000-1.030) Urine Protein NEG (NEG) Urine Glucose (UA) NEG (NEG) Urine Ketones NEG (NEG) Urine Occult Blood NEG (NEG) Urine Nitrite NEG (NEG) Urine Bilirubin NEG (NEG) Urine Urobilinogen NEG (NEG) Urine Leukocyte Esterase NEG (NEG) White Blood Count 6.31 K/uL (4.8-10.8) Red Blood Count 4.42 M/uL (4.2-5.4) Hemoglobin 14.0 g/dL (12.0-16.0) Hematocrit 42.4 % (37-47) Mean Corpuscular Volume 95.9 fL (80-100) Mean Corpuscular Hemoglobin 31.7 pg (25-34) Mean Corpuscular Hemoglobin Concent 33.0 g/dl (32-36) Platelet Count 208 K/uL (130-400) Mean Platelet Volume 10.8 fL (7.4-10.4) Neutrophils (%) (Auto) 71.5 % Lymphocytes (%) (Auto) 19.0 % Monocytes (%) (Auto) 7.1 % Eosinophils (%) (Auto) 1.7 % Basophils (%) (Auto) 0.5 % Neutrophils # (Auto) 4.51 K/uL (1.4-6.5) Lymphocytes # (Auto) 1.20 K/uL (1.2-3.4) Monocytes # (Auto) 0.45 K/uL (0.11-0.59) Eosinophils # (Auto) 0.11 K/uL (0-0.5) Basophils # (Auto) 0.03 K/uL (0-0.2) RDW Standard Deviation 47.1 fL (36.4-46.3) RDW Coefficient of Variation 13.5 % (11.5-14.5) Immature Granulocyte % (Auto) 0.2 % Immature Granulocyte # (Auto) 0.01 K/uL (0.00-0.02) Anion Gap 5.0 mmol/L (3-11) Est Creatinine Clear Calc Drug Dose 31.8 ml/min Estimated GFR () 44.6 Estimated GFR (Non- 38.4 BUN/Creatinine Ratio 11.0 (10-20) Calcium Level 9.1 mg/dl (8.5-10.1) Total Bilirubin 0.5 mg/dl (0.2-1) Direct Bilirubin 0.1 mg/dl (0-0.2) Aspartate Amino Transf (AST/SGOT) 20 U/L (15-37) Alanine Aminotransferase (ALT/SGPT) 15 U/L (12-78) Alkaline Phosphatase 62 U/L (45-117) Total Protein 8.0 gm/dl (6.4-8.2) Albumin 3.8 gm/dl (3.4-5.0) Lipase 94 U/L (73-393) Laboratory results as reviewed by me. Medications Administered Medications (Trade) Dose Ordered Sig/Fabricio Route Start Time Stop Time Status Last Admin Dose Admin Ondansetron HCl (Zofran Inj) 4 mg NOW STAT IV 08/02/17 13:21 08/02/17 13:22 DC 08/02/17 15:05 4 MG ED Course 1316: The patient was evaluated in room C12B. A complete history and physical exam was performed. 1321: Ordered Zofran Inj 4 mg IV. 1629: Upon reevaluation, the patient appeared to have improvement of her symptoms. I discussed tonight's findings with her. She verbalized agreement of the treatment plan. She was discharged home. Medical Decision This is an 82-year-old female who presents with abdominal pain and diarrhea. I did perform a limited focused review of portions of the patient's old chart on the electronic medical record. The patient was seen here in April for elevated blood pressure. She was told to go back on her original dose of blood pressure medications upon discharge. She had a colonoscopy in 2015 which showed diverticulosis. I did evaluate the patient as noted above. IV access was established. I did treat her with IV Zofran for nausea. I did order and personally review the patient's urine analysis as described above. I did order and review the patient 's blood work as noted in the electronic medical record. Her white blood cell count is not elevated. Electrolytes are unremarkable. I did order a CT of the abdomen and pelvis. I did review the images myself as well as the radiology report as described above. There is no evidence of acute process. I did discuss the test results with the patient. I did recommend close follow-up with her doctor. She was discharged in good condition. Medication Reconcilliation Current Medication List: was personally reviewed by me Blood Pressure Screening Patient's blood pressure: Elevated blood pressure Blood pressure disposition: Referred to PCP Impression Primary Impression: Lower abdominal pain Additional Impression: Diarrhea Scribe Attestation The scribe's documentation has been prepared under my direct and personally reviewed by me in its entirety. I confirm that the note above accurately reflects all work, treatment, procedures, and medical decision making performed by me. Departure Information Dispostion Home / Self-Care Referrals Iftikhar Frye D.O. (PCP) Forms HOME CARE DOCUMENTATION FORM, IMPORTANT VISIT INFORMATION Patient Instructions ED Abdominal Pain Unkn Cause, My [facility] Additional Instructions You have been examined and treated today on an emergency basis only. This is not a substitute for, or an effort to provide, complete comprehensive medical care. It is impossible to recognize and treat all injuries or illnesses in a single emergency department visit. It is therefore important that you follow up closely with your physician. Call as soon as possible for an appointment. Return for worsening symptoms or if you develop fever, vomiting, rectal bleeding or any other concerning symptoms. Problem Qualifiers Additional Impression: Diarrhea Diarrhea type: unspecified type Qualified Codes: R19.7 - Diarrhea, unspecified
== END 2017-08-02 17:02 | disposition home or self-care (01) ==
LOC: C.EDB 12:31 → C.EDC 17:02
DX: R10.30 Lower abdominal pain, unspecified (principal); R19.7 Diarrhea, unspecified; I10 Essential (primary) hypertension; Z88.8 Allergy status to other drugs, medicaments and biological substances; Z88.2 Allergy status to sulfonamides; Z88.0 Allergy status to penicillin; Z88.5 Allergy status to narcotic agent

== ENCOUNTER 2019-04-26 13:28 | Observation (INO) ==
[2019-04-26] MEDS ORDERED: HYOSCYAMINE SULFATE 0.125 MG TAB SL STA (14:13)
[2019-04-26] MEDS ORDERED: ONDANSETRON INJ 2 MG/ML 2 ML VIAL IV STA (14:13)
[2019-04-26 14:41] LABS: Basophils # (auto) 0.01 K/uL (0-0.2); Basophils % (auto) 0.1 %; Eosinophils # (auto) 0.08 K/uL (0-0.5); Eosinophils % (auto) 0.9 %; Hematocrit (blood only) 40.2 % (37-47); Immature Granulocytes # (auto) 0.02 K/uL (0.00-0.02); Immature Granulocytes % (auto) 0.2 %; Lymphocytes # (auto) 0.55 K/uL (1.2-3.4); Lymphocytes % (auto) 6.4 %; Mean Corpuscular Hgb Conc 32.3 g/dL (32-36); Mean Corpuscular Volume 95.7 fL (80-100); Mean Platelet Volume 10.1 fL (7.4-10.4); Monocytes # (auto) 0.84 K/uL (0.11-0.59); Monocytes % (auto) 9.8 %; Neutrophils # (auto) 7.11 K/uL (1.4-6.5); Neutrophils % (auto) 82.6 %; Platelet Count 179 K/uL (130-400); RDW Coefficient of Variation 14.5 % (11.5-14.5); White Blood Count 8.61 K/uL (4.8-10.8)
[2019-04-26 14:43] LABS: Appearance Urine Cloudy (Clear); Bacteria Urine Automated 2+ (Negative); Blood Urine Negative (Negative); Color Urine Dark Yellow; Epithelial Cell Urine Auto >30 /lpf (0-5); Glucose Urine UA Negative (Negative); Ketones Urine Trace (Negative); Leukocyte Esterase Urine 1+ (Negative); Nitrite Urine Negative (Negative); Protein Urine Trace (Negative); RBC Urine Automated 0-4 /hpf (0-4); Specific Gravity Urine 1.022 (1.000-1.030); Urobilinogen Urine Negative (Negative); pH Urine 5.5 (4.5-7.5)
[2019-04-26 14:53] LABS: Bilirubin Urine Negative (Negative); Ictotest Urine Negative (Negative)
--- NOTE | 2019-04-26 14:59 | CT Scan Report ---
CT SCAN OF THE ABDOMEN AND PELVIS WITHOUT IV CONTRAST CLINICAL HISTORY: Lower abdominal pain. Hematochezia. COMPARISON STUDY: Abdominal CT dated. TECHNIQUE: CT scan of the abdomen and pelvis is performed from the lung bases to the proximal femora. Images are reviewed in the axial, sagittal, and coronal planes. IV contrast was not administered for this examination as per the referring clinician. Note that the examination was performed in signific antly suboptimal fashion without oral and IV contrast. A dose lowering technique was utilized adherin g to the principles of ALARA. CT DOSE: 667.61 mGy.cm FINDINGS: Lung bases: The patient is status post midline sternotomy. The heart is normal in size and without pe ricardial effusion. The coronary arteries are densely calcified. A small hiatal hernia is noted. The lung bases are clear noting bibasilar scarring/atelectasis. Liver: The unenhanced liver is normal in size, contour, and attenuation. There is minimal central int rahepatic biliary ductal dilatation. Gallbladder: Surgically absent. Spleen: Normal in size and attenuation. Pancreas: The unenhanced pancreas is atrophic and grossly unremarkable. Adrenal glands: Unremarkable. Kidneys: The unenhanced kidneys are atrophic and without hydronephrosis. There are no renal calculi i dentified. Small renal cysts measure up to 1.8 cm. Abdominal vasculature: The abdominal aorta is normal in course and caliber noting advanced atheroscle rotic calcification. Bowel: There is postoperative change from sigmoid colon resection with colocolonic anastomosis. No [place] wel obstruction is seen. There is mild diverticulosis of the remaining colon without CT evidence of a cute diverticulitis. There is mild wall thickening and edema seen involving the majority of the colon , extending from the cecum to the mid descending colon. There is associated pericolonic inflammation and the appearance is consistent with a nonspecific colitis. The appendix is well-visualized and nor mal. Peritoneum: There is no intraperitoneal free air or abdominal ascites. Lymphadenopathy: None. Pelvic viscera: The bladder, uterus, and adnexa are normal as imaged. Skeletal structures: The skeletal structures are osteopenic. No lytic or blastic lesions are seen. Mi ld lumbosacral spondylosis is observed. There are bilateral pars defects at L5. IMPRESSION: 1. Suboptimal examination without oral and IV contrast 2. Findings are consistent with a nonspecific colitis as above. This could be on an infectious, infla mmatory, or ischemic basis and clinical correlation be required. 3. There is postoperative change from sigmoid colon resection with colocolonic anastomosis. No bowel obstruction is seen. 4. Additional findings as above. ACT 112: Negative or not required by law. Electronically signed by: Scotty Dominguez M.D. 04/26/2019 2:58 PM
[2019-04-26 15:13] LABS: Alanine Aminotransferase 19 U/L (12-78); Albumin Globulin Ratio 0.9 (0.9-2); Albumin Level 3.2 gm/dl (3.4-5.0); Alkaline Phosphatase 67 U/L (45-117); Aspartate Aminotransferase 19 U/L (15-37); BUN Creatinine Ratio 10.4 (10-20); Bilirubin,Total 0.6 mg/dl (0.2-1); Blood Urea Nitrogen 16 mg/dl (7-18); Calcium 9.1 mg/dl (8.5-10.1); Carbon Dioxide 30 mmol/L (21-32); Chloride 104 mmol/L (98-107); Est GFR (Non-African American) 31.9; Globulin 3.5 gm/dl (2.5-4.0); Glucose 126 mg/dl (70-99); Lipase 85 U/L (73-393); Potassium 3.6 mmol/L (3.5-5.1); Sodium 138 mmol/L (136-145); Total Protein 6.7 gm/dl (6.4-8.2)
[2019-04-26] MEDS ORDERED: LEVOFLOXACIN/D5W 500 MG/100 ML BAG IV ONE ×2 (16:39→18:15)
[2019-04-26] MEDS: metroNIDAZOLE 500 MG/100 ML BAG IV SCH (16:54)
[2019-04-26] MEDS ORDERED: ACETAMINOPHEN 325 MG TAB PO PRN (17:48)
[2019-04-26] MEDS ORDERED: LORazepam 0.5 MG TAB PO PRN (17:48)
--- NOTE | 2019-04-26 18:05 | History & Physical Report ---
Date of Service April 26, 2019 Assessment & Plan (1) Colitis: (2) GI bleed: -Admit to [facility] -Patient presenting from home with reports of lower abdominal pain and bright bleeding per rectum -In the ED, CT ABD/pelvis showing a nonspecific colitis -Hgb stable at 13.0 -Afebrile, no leukocytosis; will cover empirically with IV Flagyl and IV Levaquin (patient has allergy to Cipro however has tolerated Levaquin in the past) -C. difficile negative; follow stool culture result -Clear liquids, n.p.o. after midnight -EGD 12/2018: Essentially WNL, biopsies negative; colonoscopy 06/2018: Polyps removed with biopsy showing tubular adenoma, diverticulosis within the left colon -GI consult, input appreciated (3) PMR (polymyalgia rheumatica): -Continue prednisone (4) Chronic diastolic CHF (congestive heart failure): (5) Moderate aortic stenosis: -Appears euvolemic -Typically managed with a small dose of HCTZ, will hold while giving IVF for GI bleed (6) CAD (coronary artery disease): -Appears stable, no reports of chest pain -Hold aspirin for now due to lower GI bleeding; continue beta-patricia, ARMIN inhibitor, statin (7) HTN (hypertension): -History of labile and difficult to control hypertension in the past -Intermittently hypertensive, monitor BP closely -Continue carvedilol, terazosin, lisinopril; holding HCTZ as above (8) GERD (gastroesophageal reflux disease): -Continue H2 patricia, PPI, Carafate (9) DVT prophylaxis: -SCDs due to lower GI bleeding History of Present Illness Chief Complaint: Abdominal Pain, Bright Red Bleeding Per Rectum Primary Care Provider: Yumiko Paz DO 84 year old female who presents to the ED with abdominal pain and bright red bleeding per rectum. Patient reports she developed lower abdominal pain yesterday. Today, she developed diarrhea and several episodes of bright red bleeding per rectum with clots. Patient denies lightheadedness, dizziness, syncopal event. No chest pain or shortness of breath. Denies fevers and chills. No urinary symptoms. In the ED, patient is hemodynamically stable. Hgb stable at 13.0. CT ABD/pelvis showing nonspecific colitis. C. difficile is negative. Patient was given IV Zofran and SL hyoscyamine. Allergies Allergy/AdvReac Type Severity Reaction Status Date / Time domperidone Allergy Severe HEADACE, Verified 04/26/19 14:39 ITCHING, STOMACH PAIN lovastatin Allergy Severe MUSCLE PAIN Verified 04/26/19 14:39 niacin Allergy Severe ANAPHYLAXIS Verified 04/26/19 14:39 Sulfa (Sulfonamide Allergy Severe Tongue Verified 04/26/19 14:39 Antibiotics) Soreness,MOUTH/THROAT SWELLING Penicillins Allergy Intermediate Hives Verified 04/26/19 14:39 clarithromycin Allergy Mild Rash, Verified 04/26/19 14:39 Diarrhea , Shakiness doxycycline Allergy Unknown Unknown Verified 04/26/19 14:39 isosorbide Allergy Unknown Unknown Verified 04/26/19 14:39 amlodipine AdvReac Severe NAUSEA/VOMI Verified 04/26/19 14:39 TING atorvastatin AdvReac Intermediate MUSCLE Verified 04/26/19 14:39 ACHES Cipro AdvReac Intermediate Heart Races Verified 08/02/17 14:57 ciprofloxacin AdvReac Intermediate Heart Races Verified 04/26/19 14:39 metoclopramide AdvReac Intermediate Migraines Verified 04/26/19 14:39 ezetimibe AdvReac Mild Stomach Verified 04/26/19 14:39 Cramps gemfibrozil AdvReac Mild Nausea, Verified 04/26/19 14:39 Heaviness in extremities,Muscle fatigue morphine AdvReac Mild Nausea Verified 04/26/19 14:39 nitrofurantoin AdvReac Mild Headache/ Verified 04/26/19 14:39 Stomach pain Mfwjzoc-Dzs-Tmx Reductase AdvReac Mild WEAKNESS Verified 04/26/19 14:39 Inhibitor IN ARMS AND LEGS Home Medications Home Medications Medication Instructions Recorded Confirmed Type aspirin [Aspir-81] 81 mg PO QAM 01/31/18 04/26/19 History carvedilol 6.25 mg PO BID 01/31/18 04/26/19 History cholecalciferol (vitamin D3) 2,000 unit PO QAM 01/31/18 04/26/19 History clobetasol-emollient 1 applic TOPICAL BID PRN 01/31/18 04/26/19 History coenzyme Q10 [CoQ-10] 100 mg PO QAM 01/31/18 04/26/19 History lorazepam 0.5 mg PO Q8 PRN 01/31/18 04/26/19 History nitroglycerin [Nitrostat] 1 tab SUBLINGUAL DAILY PRN 01/31/18 04/26/19 History prednisone 5 mg PO QAM 01/31/18 04/26/19 History rosuvastatin 10 mg PO HS 01/31/18 04/26/19 History tramadol 25 mg PO Q8 PRN 01/31/18 04/26/19 History fluticasone propionate [Flonase 2 spray INTRANASAL HS 07/02/18 04/26/19 History Allergy Relief] hydrochlorothiazide 6.25 mg PO QAM 07/02/18 04/26/19 History lisinopril 10 mg PO AMHS 07/02/18 04/26/19 History Maalox//Lidocaine 15 ml PO BID PRN 03/20/19 04/26/19 History cetirizine [Zyrtec] 5 mg PO QAM 03/20/19 04/26/19 History famotidine 20 mg PO QAM 03/20/19 04/26/19 History meclizine 25 mg PO TID PRN 03/20/19 04/26/19 History ondansetron 4 mg PO Q8H PRN #30 tab 03/20/19 04/26/19 Rx pantoprazole [Protonix] 40 mg PO BID 03/20/19 04/26/19 History sucralfate [Carafate] 10 ml PO QID 03/20/19 04/26/19 History terazosin 1 mg PO QAM 04/26/19 04/26/19 History Past Med/Surg History Medical History Breast cancer (Resolved) --radiation and sx CAD (coronary artery disease) (Chronic) per outpatient cardiology note," 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 RCA intervention complicated by acute dissection requiring stabilization with 3 bare metal stents, ultimately undergoing CABG x 3 on November 04, 2007 with a CÁRDENAS to the first diagonal branch, SVG to the first obtuse marginal branch, and a SVG to the RCA." CAD in [place] artery (Inactive) Chronic diastolic CHF (congestive heart failure) (Chronic) Dizziness (Inactive) Dyslipidemia, goal LDL below 70 (Inactive) Gastroparesis (Chronic) GERD (gastroesophageal reflux disease) (Chronic) HTN (hypertension) (Chronic) Intractable headache (Inactive) Moderate aortic stenosis (Chronic) PMR (polymyalgia rheumatica) (Chronic) Statin intolerance (Inactive) Surgical History H/O bilateral mastectomy (Inactive) History of bilateral breast biopsy malignant History of bilateral cataract extraction History of cardiac cath 2007 [place] [facility] [place] History of cataract surgery (Inactive) History of colonoscopy History of esophagogastroduodenoscopy (EGD) History of lumpectomy of right breast History of partial colectomy (Chronic) Due to diverticulitis History of partial mastectomy of left breast History of tooth extraction some lower teeth Hx of cholecystectomy (Resolved) Hx of heart artery stent (Inactive) 2007 @ [facility] x3 stents placed S/P CABG x 3 (Resolved) 2007 @ [place] Family History Daughter Family history of diabetes mellitus Sister Family hx of colon cancer Other No family history of adverse response to anesthesia Social History Preferred Language: Latvian Communication Ability: Effective 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 Ayala's addendum for physical exam. Results & Data Vital Signs (Past 12 Hours) Vital Signs Temp Pulse Resp BP Pulse Ox 04/26/19 16:01 72 17 185/60 H 94 04/26/19 15:31 74 18 147/70 H 04/26/19 15:01 70 14 172/68 H 04/26/19 15:00 93 04/26/19 13:34 37.1 C 79 20 132/70 96 Laboratory Results Short CBC 04/26/19 Range/Units 14:30 WBC 8.61 (4.8-10.8) K/uL Hgb 13.0 (12.0-16.0) g/dL Hct 40.2 (37-47) % Plt Count 179 (130-400) K/uL BMP 04/26/19 14:30 Sodium 138 Potassium 3.6 Chloride 104 Carbon Dioxide 30 BUN 16 Creatinine 1.50 H Glucose 126 H Calcium 9.1 Liver Function 04/26/19 Range/Units 14:30 Total Bilirubin 0.6 (0.2-1) mg/dl AST 19 (15-37) U/L ALT 19 (12-78) U/L Alkaline Phosphatase 67 (45-117) U/L Albumin 3.2 L (3.4-5.0) gm/dl Urine 04/26/19 Range/Units 13:43 Urine Color Dark Yellow Urine Appearance Cloudy A (Clear) Urine pH 5.5 (4.5-7.5) Ur Specific [place] 1.022 (1.000-1.030) Urine Protein Trace H (Negative) Urine Glucose (UA) Negative (Negative) Diagnostic Findings CT ABD/PELVIS IMPRESSION: 1. Suboptimal examination without oral and IV contrast 2. Findings are consistent with a nonspecific colitis as above. This could be on an infectious, inflammatory, or ischemic basis and clinical correlation be required. 3. There is postoperative change from sigmoid colon resection with colocolonic anastomosis. No bowel obstruction is seen. 4. Additional findings as above. Code Status & VTE Plan Code Status Patient is a full code as per my discussion with her. VTE Prophylaxis Plan VTE Prophylaxis will be ordered: Yes Supervising Physician Co-Signing Physician Notes I saw this patient with the Nurse Practitioner, I participated in the history, physical, review of systems, and physical exam. I reviewed the medications with the patient and the Nurse Practitioner and helped reconcile the medications. I helped take a detailed family and social history as well. I formulated the assessment and plan personally with the Nurse Practitioner went over it with the patient. ROS-No Headache, No Visual Changes, No Nausea, No Vomiting, No Fever, No Chills, No Neck Pain or Stiffness, No Chest Pain, No Palpitations, No SOB, No STEPHENS, No Cough, No Sputum, No Wheezing, No Abdominal Pain, No Diarrhea, No Hematemesis, No Hemoptysis, No Unexpected Weight Loss, No Flank pain, No Melena, No Hematochezia, No Frequency, No Urgency, No Burning, No Hematuria, No Rashes, No Diaphoresis. Appetite is Normal Physical Exam Gen-AAO x 3, NAD, Afebrile, Obese Head-NCAT, EOMI, PERRLA, Anicteric Sclera, No Posterior Pharyngeal Erythema Neck-Supple, No JVD, No Thyromegaly, No Masses, No LAD, No Bruits Lungs-Clear to Auscultation Bilaterally, No Rales, No Rhonchi, No Wheezing, No Crepitus Chest-No S4, +S1, +S2, No S3, + Murmur, No Rubs, No Gallops, No Ectopy Abdomen-Soft, Bowel Sounds Present, Non Tender, Non Distended, No Hepatomegaly, No Splenomegaly, No Palpable Masses, No Rebound, No Rigidity, No Guarding Musculoskeletal-Full Range of Motion Bilaterally, No CVAT Extremities-No Cyanosis, No Clubbing, No Edema Nuero-Cranial Nerves II-XII grossly intact, Motor WNL, DTRs WNL, Strength WNL, Non Focal Psych-Normal Mood (1) GI bleed GI bleed type/associated pathology: unspecified gastrointestinal hemorrhage type Qualified Code(s): K92.2 - Gastrointestinal hemorrhage, unspecified (2) HTN (hypertension) Hypertension type: unspecified Qualified Code(s): I10 - Essential (primary) hypertension
[2019-04-26] MEDS ORDERED: ONDANSETRON INJ 2 MG/ML 2 ML VIAL IV PRN (18:07)
[2019-04-26] MEDS: SODIUM CHLORIDE 0.9% 1000ML 1,000 ML IV SCH (18:13)
--- NOTE | 2019-04-26 18:19 | Emergency Department Note ---
Entered by Viviana Goodrich acting as a scribe for History of Present Illness General Chief complaint: Abdominal Pain Stated complaint: ABD PAIN, BLEEDING IN RECTUM Time Seen by Provider: 04/26/19 14:05 Source: patient Limitations: no limitations History of Present Illness Provider complaint: Abdominal pain Onset (ago): hour(s) Location: abdomen Pain Consistency: + intermittent Maximum Pain Intensity: 10 Quality: + other (crampy) Associated symptoms: + nausea/vomiting (nausea) and + other (Positive: bright red blood and blood clot in bowel movements, lower abdminal pain. Negative: vomiting ); no fever/chills The patient is an 84 year old female with past medical history of DCT prophylaxis, GERD, PMR, CAD, HTN, breast cancer, who presents to the ED with complaints of intermittent crampy lower abdominal pain that started this morning. The patient notes this pain is different than her pain in March which was epigastric pain. She notes she has diarrhea due to taking two laxatives last night because she was constipated. The patient states she noticed bright red blood passing bowel movement this morning then passed a blood clot the second time. She denies history of hemorrhoids. The patient denies fever or vomiting but states she is very nauseas. Home Medications Home Medications Medication Instructions Recorded Confirmed Type aspirin [Aspir-81] 81 mg PO QAM 01/31/18 04/26/19 History carvedilol 6.25 mg PO BID 01/31/18 04/26/19 History cholecalciferol (vitamin D3) 2,000 unit PO QAM 01/31/18 04/26/19 History clobetasol-emollient 1 applic TOPICAL BID PRN 01/31/18 04/26/19 History coenzyme Q10 [CoQ-10] 100 mg PO QAM 01/31/18 04/26/19 History lorazepam 0.5 mg PO Q8 PRN 01/31/18 04/26/19 History nitroglycerin [Nitrostat] 1 tab SUBLINGUAL DAILY PRN 01/31/18 04/26/19 History prednisone 5 mg PO QAM 01/31/18 04/26/19 History rosuvastatin 10 mg PO HS 01/31/18 04/26/19 History tramadol 25 mg PO Q8 PRN 01/31/18 04/26/19 History fluticasone propionate [Flonase 2 spray INTRANASAL HS 04/24/19 02/16/20 History Allergy Relief] hydrochlorothiazide 6.25 mg PO QAM 07/02/18 04/26/19 History lisinopril 10 mg PO AMHS 07/02/18 04/26/19 History Maalox//Lidocaine 15 ml PO BID PRN 03/20/19 04/26/19 History cetirizine [Zyrtec] 5 mg PO QAM 03/20/19 04/26/19 History famotidine 20 mg PO QAM 03/20/19 04/26/19 History meclizine 25 mg PO TID PRN 03/20/19 04/26/19 History ondansetron 4 mg PO Q8H PRN #30 tab 03/20/19 04/26/19 Rx pantoprazole [Protonix] 40 mg PO BID 03/20/19 04/26/19 History sucralfate [Carafate] 10 ml PO QID 03/20/19 04/26/19 History terazosin 1 mg PO QAM 04/26/19 04/26/19 History Allergies Allergy/AdvReac Type Severity Reaction Status Date / Time domperidone Allergy Severe HEADACE, Verified 04/26/19 14:39 ITCHING, STOMACH PAIN lovastatin Allergy Severe MUSCLE PAIN Verified 04/26/19 14:39 niacin Allergy Severe ANAPHYLAXIS Verified 04/26/19 14:39 Sulfa (Sulfonamide Allergy Severe Tongue Verified 04/26/19 14:39 Antibiotics) Soreness,MOUTH/THROAT SWELLING Penicillins Allergy Intermediate Hives Verified 04/26/19 14:39 clarithromycin Allergy Mild Rash, Verified 04/26/19 14:39 Diarrhea , Shakiness doxycycline Allergy Unknown Unknown Verified 04/26/19 14:39 isosorbide Allergy Unknown Unknown Verified 04/26/19 14:39 amlodipine AdvReac Severe NAUSEA/VOMI Verified 04/26/19 14:39 TING atorvastatin AdvReac Intermediate MUSCLE Verified 04/26/19 14:39 ACHES Cipro AdvReac Intermediate Heart Races Verified 08/02/17 14:57 ciprofloxacin AdvReac Intermediate Heart Races Verified 04/26/19 14:39 metoclopramide AdvReac Intermediate Migraines Verified 04/26/19 14:39 ezetimibe AdvReac Mild Stomach Verified 04/26/19 14:39 Cramps gemfibrozil AdvReac Mild Nausea, Verified 04/26/19 14:39 Heaviness in extremities,Muscle fatigue morphine AdvReac Mild Nausea Verified 04/26/19 14:39 nitrofurantoin AdvReac Mild Headache/ Verified 04/26/19 14:39 Stomach pain Cvmzhpc-Rfj-Cvw Reductase AdvReac Mild WEAKNESS Verified 04/26/19 14:39 Inhibitor IN ARMS AND LEGS Past Med/Surg History Medical History Breast cancer (Resolved) --radiation and sx CAD (coronary artery disease) (Chronic) per outpatient cardiology note," 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 RCA intervention complicated by acute dissection requiring stabilization with 3 bare metal stents, ultimately undergoing CABG x 3 on November 04, 2007 with a CÁRDENAS to the first diagonal branch, SVG to the first obtuse marginal branch, and a SVG to the RCA." CAD in [place] artery (Inactive) Chronic diastolic CHF (congestive heart failure) (Chronic) Dizziness (Inactive) Dyslipidemia, goal LDL below 70 (Inactive) Gastroparesis (Chronic) GERD (gastroesophageal reflux disease) (Chronic) HTN (hypertension) (Chronic) Intractable headache (Inactive) Moderate aortic stenosis (Chronic) PMR (polymyalgia rheumatica) (Chronic) Statin intolerance (Inactive) Surgical History H/O bilateral mastectomy (Inactive) History of bilateral breast biopsy malignant History of bilateral cataract extraction History of cardiac cath 2007 @ [facility] [place] History of cataract surgery (Inactive) History of colonoscopy History of esophagogastroduodenoscopy (EGD) History of lumpectomy of right breast History of partial colectomy (Chronic) Due to diverticulitis History of partial mastectomy of left breast History of tooth extraction some lower teeth Hx of cholecystectomy (Resolved) Hx of heart artery stent (Inactive) [facility] stents [facility] S/P CABG x 3 (Resolved) 2007 @ [place] Family History Daughter Family history of diabetes mellitus Sister Family hx of colon cancer Other No family history of adverse response to anesthesia Social History Preferred Language: [place]i Communication Ability: Effective Case Preparer And Liner Required: No Beliefs That Will Affect Care: None marital status: Current Living Situation: Spouse current occupational status: retired Other Information That Helps Us Care for You: No Feels Safe at Home: Yes Safety Concerns: Feels Safe At This Time Smoking Status: Never smoker Do You Dip or Chew Tobacco: No ; Second Hand Exposure: No ; Tobacco Cessation Education Requested by Patient: No Hx Alcohol Use: No Hx Substance Use: No Review of Systems See HPI for pertinent positives & negatives. and A total of 10 systems reviewed and were otherwise negative Physical Exam Vital Signs Vital Signs - 24 hr 04/26/19 13:34 04/26/19 15:00 04/26/19 15:01 Temperature 37.1 C Temperature Source Oral Pulse Rate 79 70 Respiratory Rate 20 14 Blood Pressure 132/70 172/68 H Blood Pressure Mean 90 90 Pulse Oximetry 96 93 Oxygen Delivery Method Room Air Room Air Sepsis Recent Fever Within 48 Hours No Sepsis New/Unexplained Change in Mental Status No Sepsis Action Taken by Nursing No Action Required 04/26/19 15:31 04/26/19 16:01 Temperature Temperature Source Pulse Rate 74 72 Respiratory Rate 18 17 Blood Pressure 147/70 H 185/60 H Blood Pressure Mean 113 136 Pulse Oximetry 94 Oxygen Delivery Method Room Air Sepsis Recent Fever Within 48 Hours Sepsis New/Unexplained Change in Mental Status Sepsis Action Taken by Nursing Constitutional: Vital signs reviewed. Eyes: Pupils are equal round reactive to light. Conjunctiva are noninjected. ENT: Pharynx is clear without erythema or exudate. Mucous membranes are moist. Neck supple without meningeal signs. Respiratory: Clear to auscultation bilaterally. Breath sounds are equal bilaterally. Cardiovascular: Regular rate and rhythm. No rubs or gallops. GI: Soft, nondistended and nontender. Bowel sounds are present. Musculoskeletal: No peripheral edema. No lower extremity tenderness. Integumentary: No cyanosis. Neurological: The patient is awake and alert. No focal deficits. Psychiatric: Normal affect. Course Course 1408: The patient was evaluated in room A9B. A complete history and physical exam was performed. 1558: I checked on the patient and discussed tests results with her. The patient is agreeable to hospitalization. 1608: I discussed the patients case with Sherine Giles PA-C. The patient will be evaluated for further management by Dr[facility] Ayala[facility]. Administered Medications Metronidazole (Flagyl) 500 mg in 100 mls @ 100 mls/hr IV Q8H DMITRIY Stop: 05/06/19 16:44 Last Infusion: 04/26/19 18:13 Dose: 0 mls/hr Documented by: [id number] Infusion: 04/26/19 17:57 Dose: 0 mls/hr Documented by: [id number] Admin: 04/26/19 16:54 Dose: 100 mls/hr Documented by: [id number] Sodium Chloride (Nss 1000ml) 1,000 mls @ 100 mls/hr IV .Q10H DMITRIY Stop: 05/26/19 17:59 Last Admin: 04/26/19 18:13 Dose: 100 mls/hr Documented by: [id number] Discontinued Medications Hyoscyamine (Levsin) 0.125 mg SL NOW STA Stop: 04/26/19 14:14 Last Admin: 04/26/19 14:49 Dose: 0.125 mg Documented by: [id number] Ondansetron HCl (Zofran) 4 mg IV NOW STA Stop: 04/26/19 14:14 Last Admin: 04/26/19 14:49 Dose: 4 mg Documented by: [id number] Medical Decision Making Differential Diagnosis Differential Diagnosis: Constipation, hemorrhoidal bleeding, GI bleed, diverticulitis, anemia, partial bowel obstruction Medical Records Attestation: I reviewed the patient's medical records. The patient was here on March 20 for abdominal pain. She had CT of the abdomen and pelvis which showed non-specific gastric wall thickening. Home Medications Current Medication List: was personally reviewed by me Laboratory Data Attestation: I reviewed the patient's lab results. Result diagrams: 04/26/19 14:30 04/26/19 14:30 Lab Results 04/26/19 04/26/19 04/26/19 Range/Units 13:43 13:43 14:30 WBC (4.8-10.8) K/uL RBC (4.2-5.4) M/uL Hgb (12.0-16.0) g/dL Hct (37-47) % MCV (80-100) fL MCH (25-34) pg MCHC (32-36) g/dL RDW Std Deviation (36.4-46.3) fL RDW Coeff of Bambi (11.5-14.5) % Plt Count (130-400) K/uL MPV (7.4-10.4) fL Immature Gran % (Auto) % Neut % (Auto) % Lymph % (Auto) % [place] % (Auto) % Eos % (Auto) % Baso % (Auto) % Immature Gran # (Auto) (0.00-0.02) K/uL Neut # (Auto) (1.4-6.5) K/uL Lymph # (Auto) (1.2-3.4) K/uL [place] # (Auto) (0.11-0.59) K/uL Eos # (Auto) (0-0.5) K/uL Baso # (Auto) (0-0.2) K/uL Sodium 138 (136-145) mmol/L Potassium 3.6 (3.5-5.1) mmol/L Chloride 104 (98-107) mmol/L Carbon Dioxide 30 (21-32) mmol/L Anion Gap 4.0 (3-11) BUN 16 (7-18) mg/dl Creatinine 1.50 H (0.6-1.2) mg/dl Est Cr Clr Drug Dosing Not Reportable Est GFR ( Amer) 37.0 Est GFR (Non-Af Amer) 31.9 BUN/Creatinine Ratio 10.4 (10-20) Glucose 126 H (70-99) mg/dl Calcium 9.1 (8.5-10.1) mg/dl Total Bilirubin 0.6 (0.2-1) mg/dl AST 19 (15-37) U/L ALT 19 (12-78) U/L Alkaline Phosphatase 67 (45-117) U/L Total Protein 6.7 (6.4-8.2) gm/dl Albumin 3.2 L (3.4-5.0) gm/dl Globulin 3.5 (2.5-4.0) gm/dl Albumin/Globulin Ratio 0.9 (0.9-2) Lipase 85 (73-393) U/L Specimen Hemolysis Urine Color Dark Yellow Urine Appearance Cloudy A (Clear) Urine pH 5.5 (4.5-7.5) Ur Specific [place] 1.022 (1.000-1.030) Urine Protein Trace H (Negative) Urine Glucose (UA) Negative (Negative) Urine Ketones Trace H (Negative) Urine Blood Negative (Negative) Urine Nitrite Negative (Negative) Urine Bilirubin Negative (Negative) Urine Urobilinogen Negative (Negative) Ur Leukocyte Esterase 1+ H (Negative) Urine WBC (Auto) 1-5 (0-5) /hpf Urine RBC (Auto) 0-4 (0-4) /hpf U Hyaline Cast (Auto) 1-5 (0-5) /lpf U Epithel Cells (Auto) >30 H (0-5) /lpf Urine Bacteria (Auto) 2+ H (Negative) Stl C. diff Tox B Gene Negative Cdiff Gene (Neg) 04/26/19 Range/Units 14:30 WBC 8.61 (4.8-10.8) K/uL RBC 4.20 (4.2-5.4) M/uL Hgb 13.0 (12.0-16.0) g/dL Hct 40.2 (37-47) % MCV 95.7 (80-100) fL MCH 31.0 (25-34) pg MCHC 32.3 (32-36) g/dL RDW Std Deviation 51.0 H (36.4-46.3) fL RDW Coeff of Bambi 14.5 (11.5-14.5) % Plt Count 179 (130-400) K/uL MPV 10.1 (7.4-10.4) fL Immature Gran % (Auto) 0.2 % Neut % (Auto) 82.6 % Lymph % (Auto) 6.4 % [place] % (Auto) 9.8 % Eos % (Auto) 0.9 % Baso % (Auto) 0.1 % Immature Gran # (Auto) 0.02 (0.00-0.02) K/uL Neut # (Auto) 7.11 H (1.4-6.5) K/uL Lymph # (Auto) 0.55 L (1.2-3.4) K/uL [place] # (Auto) 0.84 H (0.11-0.59) K/uL Eos # (Auto) 0.08 (0-0.5) K/uL Baso # (Auto) 0.01 (0-0.2) K/uL Sodium (136-145) mmol/L Potassium (3.5-5.1) mmol/L Chloride (98-107) mmol/L Carbon Dioxide (21-32) mmol/L Anion Gap (3-11) BUN (7-18) mg/dl Creatinine (0.6-1.2) mg/dl Est Cr Clr Drug Dosing Est GFR ( Amer) Est GFR (Non-Af Amer) BUN/Creatinine Ratio (10-20) Glucose (70-99) mg/dl Calcium (8.5-10.1) mg/dl Total Bilirubin (0.2-1) mg/dl AST (15-37) U/L ALT (12-78) U/L Alkaline Phosphatase (45-117) U/L Total Protein (6.4-8.2) gm/dl Albumin (3.4-5.0) gm/dl Globulin (2.5-4.0) gm/dl Albumin/Globulin Ratio (0.9-2) Lipase (73-393) U/L Specimen Hemolysis Urine Color Urine Appearance (Clear) Urine pH (4.5-7.5) Ur Specific [place] (1.000-1.030) Urine Protein (Negative) Urine Glucose (UA) (Negative) Urine Ketones (Negative) Urine Blood (Negative) Urine Nitrite (Negative) Urine Bilirubin (Negative) Urine Urobilinogen (Negative) Ur Leukocyte Esterase (Negative) Urine WBC (Auto) (0-5) /hpf Urine RBC (Auto) (0-4) /hpf U Hyaline Cast (Auto) (0-5) /lpf U Epithel Cells (Auto) (0-5) /lpf Urine Bacteria (Auto) (Negative) Stl C. diff Tox B Gene (Neg) Imaging Data Radiologist's Impression: Radiology results as stated below per my review and the radiologist's interpretation: CT SCAN OF THE ABDOMEN AND PELVIS WITHOUT IV CONTRAST CLINICAL HISTORY: Lower abdominal pain. Hematochezia. COMPARISON STUDY: Abdominal CT dated. TECHNIQUE: CT scan of the abdomen and pelvis is performed from the lung bases to the proximal femora. Images are reviewed in the axial, sagittal, and coronal planes. IV contrast was not administered for this examination as per the referring clinician. Note that the examination was performed in significantly suboptimal fashion without oral and IV contrast. A dose lowering technique was utilized adhering to the principles of ALARA. CT DOSE: 667.61 mGy.cm FINDINGS: Lung bases: The patient is status post midline sternotomy. The heart is normal in size and without pericardial effusion. The coronary arteries are densely calcified. A small hiatal hernia is noted. The lung bases are clear noting bibasilar scarring/atelectasis. Liver: The unenhanced liver is normal in size, contour, and attenuation. There is minimal central intrahepatic biliary ductal dilatation. Gallbladder: Surgically absent. Spleen: Normal in size and attenuation. Pancreas: The unenhanced pancreas is atrophic and grossly unremarkable. Adrenal glands: Unremarkable. Kidneys: The unenhanced kidneys are atrophic and without hydronephrosis. There are no renal calculi identified. Small renal cysts measure up to 1.8 cm. Abdominal vasculature: The abdominal aorta is normal in course and caliber noting advanced atherosclerotic calcification. Bowel: There is postoperative change from sigmoid colon resection with colocolonic anastomosis. No bowel obstruction is seen. There is mild diverticulosis of the remaining colon without CT evidence of acute divertic ulitis. There is mild wall thickening and edema seen involving the majority of the colon, extending from the cecum to the mid descending colon. There is associated pericolonic inflammation and the appearance is consistent with a nonspecific colitis. The appendix is well-visualized and normal. Peritoneum: There is no intraperitoneal free air or abdominal ascites. Lymphadenopathy: None. Pelvic viscera: The bladder, uterus, and adnexa are normal as imaged. Skeletal structures: The skeletal structures are osteopenic. No lytic or blastic lesions are seen. Mild lumbosacral spondylosis is observed. There are bilateral pars defects at L5. IMPRESSION: 1. Suboptimal examination without oral and IV contrast 2. Findings are consistent with a nonspecific colitis as above. This could be on an infectious, inflammatory, or ischemic basis and clinical correlation be required. 3. There is postoperative change from sigmoid colon resection with colocolonic anastomosis. No bowel obstruction is seen. 4. Additional findings as above. ACT 112: Negative or not required by law. Electronically signed by: Scotty Dominguez M.D. 04/26/2019 2:58 PM Blood Pressure Blood Pressure Findings: Elevated blood pressure Blood Pressure Disposition: Referred to patients primary care provider FERMIN Narrative I did evaluate the patient as noted above. The patient is presenting with intermittent lower abdominal pain with rectal bleeding. She was seen here for abdominal pain 6 days ago but this pain is in the lower abdomen and she started passing clots and blood through her rectum. IV access was established. I did treat the patient with Levsin p.o. She was also given Zofran IV for nausea. I did order and review the patient's blood work as noted in the electronic [facility] record. Hemoglobin is 13. She has no leukocytosis. Electrolytes are unremarkable. Creatinine is 1.5 which is near baseline for her. I did order a CT of the abdomen and pelvis. I did review the images myself as well as the radiology report as described above. She has evidence of a near tamez colitis from the cecum to the mid descending colon. Stool tests were sent. C. difficile is negative. She is strongly guaiac positive. I did discuss the test results with the patient and her family. I did recommend hospitalization for further evaluation and repeat H&H's. I did discuss the case with the hospitalist and disease case manager. Impression & Plan GI bleed, Colitis, Lower abdominal pain Discharge Plan Visit Data *Final* Discharge Date/Time: 04/26/19 17:06 Chief Complaint: Abdominal Pain Stated Complaint: ABD PAIN, BLEEDING IN RECTUM ED Provider: Janak Duran Discharge Problem: GI bleed, Colitis, Lower abdominal pain Patient Disposition: Admitted As Inpatient Discharge Instructions Interventions: ED Discharge Assessment Last Done: 04/26/19 17:06 Discharge Problem: GI bleed Qualifiers: GI bleed type/associated pathology: unspecified gastrointestinal hemorrhage type Qualified Code(s): K92.2 - Gastrointestinal hemorrhage, unspecified The scribe's documentation has been prepared under my direction and personally reviewed by me in its entirety. I confirm that the note above accurately reflects all work, treatment, procedures, and medical decision making performed by me.
[2019-04-26] MEDS: TERAZOSIN HCL 1 MG CAP PO SCH (20:45)
[2019-04-26] MEDS: PANTOprazole 40 MG TAB PO SCH (20:46)
[2019-04-26] MEDS: SUCRALFATE 1 GM/10 ML UDC PO SCH (20:47)
[2019-04-26] MEDS: lisinopriL 10 MG TAB PO SCH (20:47)
[2019-04-26] MEDS: ROSUVASTATIN CALCIUM 10 MG TAB PO SCH (20:47)
[2019-04-26] MEDS: carvediloL 6.25 MG TAB PO SCH (20:48)
[2019-04-26 20:58] LABS: Hematocrit (blood only) 36.9 % (37-47); Hemoglobin 11.9 g/dL (12.0-16.0)
[2019-04-26] MEDS: TRAMADOL HCL 50 MG TABLET PO PRN (22:00)
[2019-04-27] MEDS: metroNIDAZOLE 500 MG/100 ML BAG IV SCH ×3 (00:58→16:45)
[2019-04-27] MEDS ORDERED: COUGH DROP (SUGAR FREE) LOZ 24 LOZ/1 BOX BUCCAL PRN (06:19)
[2019-04-27] MEDS ORDERED: COUGH DROP (SUGAR FREE) LOZ 24 LOZ/1 BOX BUCCAL ONE (06:22)
[2019-04-27] MEDS: SODIUM CHLORIDE 0.9% 1000ML 1,000 ML IV SCH ×2 (06:25→16:44)
[2019-04-27 06:47] LABS: Hematocrit (blood only) 35.3 % (37-47); Hemoglobin 11.4 g/dL (12.0-16.0); Mean Corpuscular Hemoglobin 30.8 pg (25-34); Mean Corpuscular Hgb Conc 32.3 g/dL (32-36); Mean Corpuscular Volume 95.4 fL (80-100); Mean Platelet Volume 9.8 fL (7.4-10.4); Platelet Count 168 K/uL (130-400); RDW Standard Deviation 52.5 fL (36.4-46.3)
[2019-04-27 07:16] LABS: BUN Creatinine Ratio 8.7 (10-20); Calcium 8.1 mg/dl (8.5-10.1); Creatinine Clr Calc Pharmacy 23.6 ml/min; Est GFR (African American) 31.1; Est GFR (Non-African American) 26.8; Potassium 3.2 mmol/L (3.5-5.1)
[2019-04-27] MEDS: CETIRIZINE HCL 10 MG TABLET PO SCH (08:04)
[2019-04-27] MEDS: LEVOFLOXACIN/D5W 250 MG/50 ML BAG IV SCH (08:04)
[2019-04-27] MEDS: SUCRALFATE 1 GM/10 ML UDC PO SCH ×4 (08:05→20:23)
[2019-04-27] MEDS: FAMOTIDINE 20 MG TAB PO SCH (08:05)
[2019-04-27] MEDS: PANTOprazole 40 MG TAB PO SCH ×2 (08:05→20:23)
[2019-04-27] MEDS: lisinopriL 10 MG TAB PO SCH ×2 (08:06→20:23)
[2019-04-27] MEDS: CHOLECALCIFEROL 1,000 UNITS 25 MCG TAB PO SCH (08:06)
[2019-04-27] MEDS: predniSONE 5 MG TAB PO SCH (08:07)
[2019-04-27] MEDS: carvediloL 6.25 MG TAB PO SCH ×2 (08:07→20:23)
[2019-04-27] MEDS ORDERED: POTASSIUM CHLORIDE 20 MEQ TABCR PO STA (08:32)
[2019-04-27] MEDS ORDERED: TERAZOSIN HCL 1 MG CAP PO SCH (09:00)
[2019-04-27] MEDS: TRAMADOL HCL 50 MG TABLET PO PRN (09:20)
--- NOTE | 2019-04-27 19:02 | Hospitalist Progress Note ---
Date of Service April 27, 2019 Assessment & Plan (1) Colitis: (2) GI bleed: Present on admission with abdominal pain associated with bright bleeding per rectum CT ABD/pelvis showed a nonspecific colitis Hgb stable on admission 13, dropped to 11.4 today Last BM was today Continue empirically with IV Flagyl and IV Levaquin (patient has allergy to Cipro however has tolerated Levaquin in the past) C. difficile and stool culture negative Diet advanced to Full liquid EGD 12/2018: Essentially WNL, biopsies negative; colonoscopy 06/2018: Polyps removed with biopsy showing tubular adenoma, diverticulosis within the left colon Consider GI consult if bleeding continue or if Hgb dropped further If stable, will recommended outpatient GI follow up Continue to hold aspirin Monitor CBC (3) PMR (polymyalgia rheumatica): Continue prednisone (4) Chronic diastolic CHF (congestive heart failure): (5) Moderate aortic stenosis: Appears euvolemic Will d/c IVF (6) CAD (coronary artery disease): Appears stable, no reports of chest pain Continue to hold aspirin for now due to lower GI bleeding continue beta-patricia, ARMIN inhibitor, statin (7) HTN (hypertension): BP stable Continue carvedilol, terazosin, lisinopril Continue to holding HCTZ (8) GERD (gastroesophageal reflux disease): Continue H2 patricia, PPI, Carafate CKD stage # It seems like creatinine has been running btw 1.4- 1.7 outpatient Creatinine on admission 1.5, increased to 1.7 Received IVF Continue to hold HCTZ Monitor BMP Hypokalemia K 3.2 K replaced Monitor BMP (9) DVT prophylaxis: SCDs due to lower GI bleeding Admission and Anticipated Discharge Date Admission Date: April 26, 2019 Subjective Pt was seen and examined Lying in bed with no distress with family member at bedside Pt said that she feels much better She said that her pain is slightly improves She said that her last BM was today around 10AM with no blood Denies any chest pain, palpitation, dizziness and SOB Physical Exam Physical Exam: General- No acute distress Head- atraumatic Eyes- PERRL, EOMI, ENT- oropharynx clear Neck- supple, no JVD Lungs- clear to auscultation Heart- regular rhythm; +murmur Abdomen- normal bowel sounds, soft, +tenderness with palpation Extremities- no calf tenderness Neuro- alert, oriented x 3; PERRL, EOMI; no facial palsy; no dysarthria Skin- warm & dry Results & Data ([facility]) Vital Signs (Past 12 Hours) Vital Signs Temp Pulse Resp BP Pulse Ox 04/27/19 15:19 36.7 C 69 20 125/59 L 90 04/27/19 07:35 37 C 67 16 112/54 L 91 (1) GI bleed GI bleed type/associated pathology: unspecified gastrointestinal hemorrhage type Qualified Code(s): K92.2 - Gastrointestinal hemorrhage, unspecified (2) HTN (hypertension) Hypertension type: unspecified Qualified Code(s): I10 - Essential (primary) hypertension
[2019-04-27] MEDS: TERAZOSIN HCL 1 MG CAP PO SCH (20:23)
[2019-04-27] MEDS: ROSUVASTATIN CALCIUM 10 MG TAB PO SCH (20:23)
[2019-04-27] MEDS ORDERED: SIMETHICONE 80 MG CHEW PO STA (22:26)
[2019-04-28] MEDS: metroNIDAZOLE 500 MG/100 ML BAG IV SCH ×3 (00:06→18:01)
[2019-04-28 06:35] LABS: Hematocrit (blood only) 33.1 % (37-47); Hemoglobin 10.6 g/dL (12.0-16.0); Mean Corpuscular Hemoglobin 30.9 pg (25-34); Mean Corpuscular Volume 96.5 fL (80-100); Platelet Count 148 K/uL (130-400); RDW Coefficient of Variation 15.1 % (11.5-14.5); RDW Standard Deviation 53.9 fL (36.4-46.3); Red Blood Count 3.43 M/uL (4.2-5.4); White Blood Count 5.87 K/uL (4.8-10.8)
[2019-04-28 07:12] LABS: BUN Creatinine Ratio 7.8 (10-20); Calcium 8.2 mg/dl (8.5-10.1); Creatinine Clr Calc Pharmacy 26.3 ml/min; Est GFR (African American) 35.5; Est GFR (Non-African American) 30.6; Potassium 3.8 mmol/L (3.5-5.1)
[2019-04-28] MEDS: SUCRALFATE 1 GM/10 ML UDC PO SCH ×3 (09:18→16:26)
[2019-04-28] MEDS: PANTOprazole 40 MG TAB PO SCH (09:18)
[2019-04-28] MEDS: CETIRIZINE HCL 10 MG TABLET PO SCH (09:19)
[2019-04-28] MEDS: predniSONE 5 MG TAB PO SCH (09:19)
[2019-04-28] MEDS: lisinopriL 10 MG TAB PO SCH (09:19)
[2019-04-28] MEDS: FAMOTIDINE 20 MG TAB PO SCH (09:19)
[2019-04-28] MEDS: CHOLECALCIFEROL 1,000 UNITS 25 MCG TAB PO SCH (09:20)
[2019-04-28] MEDS: carvediloL 6.25 MG TAB PO SCH (09:20)
--- NOTE | 2019-04-28 10:12 | Gastrointestinal Consultation ---
Date of Consultation April 28, 2019 Assessment & Plan (1) GI bleed: 84 year old female admitted w/ hematochezia after outpatient laxative use for severe constipation - she suggests her last episode of rectal bleeding was saturday evening and reports a semi-formed brown stool earlier this AM. She denies any abd pain. Non-con CT w ? of colitis, stool studies and c.diff negative. She has had recent EGD/Colonoscopy w/ report of diverticular bleed. Her resolved symptoms are consistent w/ outlet bleeding (diverticular/hemorrhoidal) however should they return would recommend obtaining a bleeding scan No current plan for endoscopic evaluation No GI contraindication to diet No GI contraindication to discharge Slight drop in HGB this AM likely multifactorial (residual/dilutional) given her semi-formed brown stool Can trend HGB Would start Miralax 1 capful daily Would start Metamucil 1 tbl daily Good fluid intake Avoid constipation OP GI follow up Please recall if needed. Thank you for allowing us to participate in the care of this patient. Please call with any acute changes, questions or concerns. Please see addendum below with additional recommendation from my supervising physician. Present on Admission?: Yes Supervising Physician Co-Signing Physician Notes I saw and evaluated the patient. We are consulted for evaluation of hematochezia. The patient reports that she had approximately 48 hours of intermittent bloody stools that began on Saturday into Saturday. Her last episode of this was prior to admission on Saturday evening. Patient does have a history of diverticulosis of the colon and underwent a colonoscopy with my partner less than 1 year ago. She notes that over the past 24 hours she has had brown stool without any significant bleeding. Physical examination No obvious distress No abdominal tenderness Impression: Patient admitted with hematochezia likely resulting from her history of diverticulosis or perhaps internal hemorrhoids. As it appears that symptoms have stopped I would not recommend any interventions for the present time. Perhaps the patient would be best off starting a fiber supplement 1 time daily in addition to MiraLAX 17 g/day. She should follow-up with her regular GI provider in about 3 to 4 months or sooner if needed. Recommendations Daily fiber supplement MiraLAX 17 g 1 time daily Please call with any questions or concerns, GI to sign off History of Present Illness Reason for Consultation: rectal bleeding Requesting Physician: Radha Attending Physician: Charo Garcia MD History of Present Illness 84 year old female with history of IBS, constipation, gastroparesis, dysphagia, complicated diverticulitis s/p partial colectomy admitted through the ED for rectal bleeding, noncon CT w/ report of colitis. GI asked to evaluate. Pt was seen and evaluated, chart reviewed. History of IBS, alternating stools. More recently having issues with constipation. No BM in about 1 week. Took some laxative which caused large volume loose stools. Noticed with this she reported onset of rectal bleeding. Was small volume, BRB to start. Suggested she later had some dark blood w/ clots. PResented to the ED as this persistent and she had some abd pain. Reports currently her symptoms are resolved. She denies any abd pain. Moved her bowels this AM, semi-formed brown stool. Has not seen any rectal bleeding since Saturday evening. No UGI symptoms. No fever, chills, CP, SOB. c diff negative stool cultuer negative CTAP: Suboptimal examination without oral and IV contrastFindings are consist ent with a nonspecific colitis as above. This could be on an infectious, inflammatory, or ischemic basis and clinical correlation be required.There is postoperative change from sigmoid colon resection with colocolonic anastomosis. No bowel obstruction is seen. EGD 2019: Normal esophagus. Dilated. Biopsied. Erythematous mucosa in the antrum. Biopsied. Normal duodenal bulb and second portion of the duodenum. Colonoscopy 2019: Two 2 to 3 mm polyps at the hepatic flexure, removed with a cold snare. Resected and retrieved.Diverticulosis in the left colon. Patent functional end-to-end colo-colonic anastomosis, characterized by healthy appearing mucosa. the colon was otherwise normal to the cecum with retroflexed views of the ascending colon. Allergies Allergy/AdvReac Type Severity Reaction Status Date / Time domperidone Allergy Severe HEADACE, Verified 04/26/19 14:39 ITCHING, STOMACH PAIN lovastatin Allergy Severe MUSCLE PAIN Verified 04/26/19 14:39 niacin Allergy Severe ANAPHYLAXIS Verified 04/26/19 14:39 Sulfa (Sulfonamide Allergy Severe Tongue Verified 04/26/19 14:39 Antibiotics) Soreness,MOUTH/THROAT SWELLING Penicillins Allergy Intermediate Hives Verified 04/26/19 14:39 clarithromycin Allergy Mild Rash, Verified 04/26/19 14:39 Diarrhea , Shakiness doxycycline Allergy Unknown Unknown Verified 04/26/19 14:39 isosorbide Allergy Unknown Unknown Verified 04/26/19 14:39 amlodipine AdvReac Severe NAUSEA/VOMI Verified 04/26/19 14:39 TING atorvastatin AdvReac Intermediate MUSCLE Verified 04/26/19 14:39 ACHES Cipro AdvReac Intermediate Heart Races Verified 08/02/17 14:57 ciprofloxacin AdvReac Intermediate Heart Races Verified 04/26/19 14:39 metoclopramide AdvReac Intermediate Migraines Verified 04/26/19 14:39 ezetimibe AdvReac Mild Stomach Verified 04/26/19 14:39 Cramps gemfibrozil AdvReac Mild Nausea, Verified 04/26/19 14:39 Heaviness in extremities,Muscle fatigue morphine AdvReac Mild Nausea Verified 04/26/19 14:39 nitrofurantoin AdvReac Mild Headache/ Verified 04/26/19 14:39 Stomach pain [id number]-Aqq-Rub Reductase AdvReac Mild WEAKNESS Verified 04/26/19 14:39 Inhibitor IN ARMS AND LEGS Home Medications Home Medications Medication Instructions Recorded Confirmed Type aspirin [Aspir-81] 81 mg PO QAM 01/31/18 04/26/19 History carvedilol 6.25 mg PO BID 01/31/18 04/26/19 History cholecalciferol (vitamin D3) 2,000 unit PO QAM 01/31/18 04/26/19 History clobetasol-emollient 1 applic TOPICAL BID PRN 01/31/18 04/26/19 History coenzyme Q10 [CoQ-10] 100 mg PO QAM 01/31/18 04/26/19 History lorazepam 0.5 mg PO Q8 PRN 01/31/18 04/26/19 History nitroglycerin [Nitrostat] 1 tab SUBLINGUAL DAILY PRN 01/31/18 04/26/19 History prednisone 5 mg PO QAM 01/31/18 04/26/19 History rosuvastatin 10 mg PO HS 01/31/18 04/26/19 History tramadol 25 mg PO Q8 PRN 01/31/18 04/26/19 History fluticasone propionate [Flonase 2 spray INTRANASAL HS 07/02/18 04/26/19 History Allergy Relief] hydrochlorothiazide 6.25 mg PO QAM 07/02/18 04/26/19 History lisinopril 10 mg PO AMHS 07/02/18 04/26/19 History Maalox//Lidocaine 15 ml PO BID PRN 03/20/19 04/26/19 History cetirizine [Zyrtec] 5 mg PO QAM 03/20/19 04/26/19 History famotidine 20 mg PO QAM 03/20/19 04/26/19 History meclizine 25 mg PO TID PRN 03/20/19 04/26/19 History ondansetron 4 mg PO Q8H PRN #30 tab 03/20/19 04/26/19 Rx pantoprazole [Protonix] 40 mg PO BID 03/20/19 04/26/19 History sucralfate [Carafate] 10 ml PO QID 03/20/19 04/26/19 History terazosin 1 mg PO QAM 04/26/19 04/26/19 History Patient History Medical History Breast cancer (Resolved) --radiation and sx CAD (coronary artery disease) (Chronic) per outpatient cardiology note," 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 RCA intervention complicated by acute dissection requiring stabilization with 3 bare metal stents, ultimately undergoing CABG x 3 on November 04, 2007 with a CÁRDENAS to the first diagonal branch, SVG to the first obtuse marginal branch, and a SVG to the RCA." CAD in [place] artery (Inactive) Chronic diastolic CHF (congestive heart failure) (Chronic) Dizziness (Inactive) Dyslipidemia, goal LDL below 70 (Inactive) Gastroparesis (Chronic) GERD (gastroesophageal reflux disease) (Chronic) HTN (hypertension) (Chronic) Intractable headache (Inactive) Moderate aortic stenosis (Chronic) PMR (polymyalgia rheumatica) (Chronic) Statin intolerance (Inactive) Surgical History H/O bilateral mastectomy (Inactive) History of bilateral breast biopsy malignant History of bilateral cataract extraction History of cardiac cath 2007 @ [facility] History of cataract surgery (Inactive) History of colonoscopy History of esophagogastroduodenoscopy (EGD) History of lumpectomy of right breast History of partial colectomy (Chronic) Due to diverticulitis History of partial mastectomy of left breast History of tooth extraction some lower teeth Hx of cholecystectomy (Resolved) Hx of heart artery stent (Inactive) 2007 @ [facility] x3 stents placed S/P CABG x 3 (Resolved) 2007 @ [place] Family History Daughter Family history of diabetes mellitus Sister Family hx of colon cancer Other No family history of adverse response to anesthesia Social History Preferred Language: Khmer Communication Ability: Effective Email Deployment Specialist Required: No Beliefs That Will Affect Care: None marital status: Current Living Situation: Spouse current occupational status: retired Other Information That Helps Us Care for You: No Feels Safe at Home: Yes Safety Concerns: Feels Safe At This Time Smoking Status: Never smoker Do You Dip or Chew Tobacco: No ; Second Hand Exposure: No ; Tobacco Cessation Education Requested by Patient: No Hx Alcohol Use: No Hx Substance Use: No Review of Systems Constitutional: no fever and no body aches Respiratory: no cough and no dyspnea Cardiovascular: no chest pain and no dyspnea on exertion Gastrointestinal: no abdominal pain, no coffee ground emesis, no hematemesis, no blood in stools and no melena Physical Exam Constitutional: WD/WN, vitals as above Neck: trachea midline Respiratory: normal respiratory effort, lungs clear to auscultation Cardiovascular: Rate/Rhythm: regular rate and regular rhythm Gastrointestinal (Abdomen): normal bowel sounds, soft, nontender, no hepatosplenomegaly Results & Data ([facility]) Vital Signs (Past 12 Hours) Vital Signs Temp Pulse Resp BP Pulse Ox 04/28/19 07:28 36.9 C 64 16 135/67 93 04/27/19 23:42 36.9 C 69 16 131/73 94 (1) GI bleed GI bleed type/associated pathology: unspecified gastrointestinal hemorrhage type Qualified Code(s): K92.2 - Gastrointestinal hemorrhage, unspecified
[2019-04-28] MEDS: LEVOFLOXACIN/D5W 250 MG/50 ML BAG IV SCH (10:40)
--- NOTE | 2019-04-28 16:26 | Hospitalist Progress Note ---
Date of Service April 28, 2019 Assessment & Plan (1) Colitis: (2) GI bleed: Present on admission with abdominal pain associated with bright bleeding per rectum CT ABD/pelvis showed a nonspecific colitis Hgb stable on admission 13, dropped to 11.4 today Last BM was today Continue empirically with IV Flagyl and IV Levaquin (patient has allergy to Cipro however has tolerated Levaquin in the past) C. difficile and stool culture negative Diet advanced to Full liquid EGD 12/2018: Essentially WNL, biopsies negative; colonoscopy 06/2018: Polyps removed with biopsy showing tubular adenoma, diverticulosis within the left colon Hgb 10.4 today GI consulted and recommended no Intervention GI testing needed GI recommended to start on a fiber supplement 1 time daily in addition to MiraLAX 17 g/day. She should follow-up with her regular GI provider in about 3 to 4 months or sooner if needed. Will hold Aspirin for now, then resume once hgb stable Check CBC in 3 to 5 days OK from GI standpoint to discharge home (3) PMR (polymyalgia rheumatica): Continue prednisone (4) Chronic diastolic CHF (congestive heart failure): (5) Moderate aortic stenosis: Appears euvolemic Stable (6) CAD (coronary artery disease): Appears stable, no reports of chest pain Continue to hold aspirin for now due to lower GI bleeding continue beta-patricia, ARMIN inhibitor, statin (7) HTN (hypertension): BP stable Continue carvedilol, terazosin, lisinopril Resume HCTZ on discharge (8) GERD (gastroesophageal reflux disease): Continue H2 patricia, PPI, Carafate CKD stage # It seems like creatinine has been running btw 1.4- 1.7 outpatient Creatinine on admission 1.5, increased to 1.7 yesterday Received IVF Creatinine improved to 1.5 today Monitor BMP Hypokalemia K 3.8 today K stable CODE STATUS FULL CODE Disposition Discharge home today Follow up with your primary care provider with 1 week Follow up with you gastroenterology in 3 to 4 months Check CBC in 3 to 5 days (9) DVT prophylaxis: SCDs due to lower GI bleeding Admission and Anticipated Discharge Date Admission Date: April 26, 2019 Subjective Pt was seen and examined Lying in bed with no distress Pt said that she feels fine She said that she tolerated her diet She said that she did not have any episode of bloody stool yesterday or today She said that she had a small bowel movement early today that was normal Denies any chest pain, palpitation, dizziness and SOB Physical Exam Physical Exam: General- No acute distress Head- atraumatic Eyes- PERRL, EOMI, ENT- oropharynx clear Neck- supple, no JVD Lungs- clear to auscultation Heart- regular rhythm; +murmur Abdomen- normal bowel sounds, soft, Non tenderness Extremities- no calf tenderness Neuro- alert, oriented x 3; PERRL, EOMI; no facial palsy; no dysarthria Skin- warm & dry Results & Data ([facility]) Vital Signs (Past 12 Hours) Vital Signs Temp Pulse Resp BP Pulse Ox 04/28/19 15:16 37 C 77 20 151/78 H 94 04/28/19 07:28 36.9 C 64 16 135/67 93 (1) GI bleed GI bleed type/associated pathology: unspecified gastrointestinal hemorrhage type Qualified Code(s): K92.2 - Gastrointestinal hemorrhage, unspecified (2) HTN (hypertension) Hypertension type: unspecified Qualified Code(s): I10 - Essential (primary) hypertension
--- NOTE | 2019-04-29 14:29 | Discharge Summary ---
Date of Service April 28, 2019 Admission HPI Per Admitting Provider 84 year old female who presents to the ED with abdominal pain and bright red bleeding per rectum. Patient reports she developed lower abdominal pain yesterday. Today, she developed diarrhea and several episodes of bright red bleeding per rectum with clots. Patient denies lightheadedness, dizziness, syncopal event. No chest pain or shortness of breath. Denies fevers and chills. No urinary symptoms. In the ED, patient is hemodynamically stable. Hgb stable at 13.0. CT ABD/pelvis showing nonspecific colitis. C. difficile is negative. Patient was given IV Zofran and SL hyoscyamine. Admission Exam Per Admitting Provider Gen-AAO x 3, NAD, Afebrile, Obese Head-NCAT, EOMI, PERRLA, Anicteric Sclera, No Posterior Pharyngeal Erythema Neck-Supple, No JVD, No Thyromegaly, No Masses, No LAD, No Bruits Lungs-Clear to Auscultation Bilaterally, No Rales, No Rhonchi, No Wheezing, No Crepitus Chest-No S4, +S1, +S2, No S3, + Murmur, No Rubs, No Gallops, No Ectopy Abdomen-Soft, Bowel Sounds Present, Non Tender, Non Distended, No Hepatomegaly, No Splenomegaly, No Palpable Masses, No Rebound, No Rigidity, No Guarding Musculoskeletal-Full Range of Motion Bilaterally, No CVAT Extremities-No Cyanosis, No Clubbing, No Edema Nuero-Cranial Nerves II-XII grossly intact, Motor WNL, DTRs WNL, Strength WNL, Non Focal Psych-Normal Mood Principal Diagnosis Colitis: GI bleed: PMR (polymyalgia rheumatica): Chronic diastolic CHF (congestive heart failure): Moderate aortic stenosis: CAD (coronary artery disease): HTN (hypertension): GERD (gastroesophageal reflux disease): CKD stage 3 Hypokalemia Discharge Exam General- No acute distress Head- atraumatic Eyes- PERRL, EOMI, ENT- oropharynx clear Neck- supple, no JVD Lungs- clear to auscultation Heart- regular rhythm; +murmur Abdomen- normal bowel sounds, soft, Non tenderness Extremities- no calf tenderness Neuro- alert, oriented x 3; PERRL, EOMI; no facial palsy; no dysarthria Skin- warm & dry Discharge Data Allergies Allergy/AdvReac Type Severity Reaction Status Date / Time domperidone Allergy Severe HEADACE, Verified 04/26/19 14:39 ITCHING, STOMACH PAIN lovastatin Allergy Severe MUSCLE PAIN Verified 04/26/19 14:39 niacin Allergy Severe ANAPHYLAXIS Verified 04/26/19 14:39 Sulfa (Sulfonamide Allergy Severe Tongue Verified 04/26/19 14:39 Antibiotics) Soreness,MOUTH/THROAT SWELLING Penicillins Allergy Intermediate Hives Verified 04/26/19 14:39 clarithromycin Allergy Mild Rash, Verified 04/26/19 14:39 Diarrhea , Shakiness doxycycline Allergy Unknown Unknown Verified 04/26/19 14:39 isosorbide Allergy Unknown Unknown Verified 04/26/19 14:39 amlodipine AdvReac Severe NAUSEA/VOMI Verified 04/26/19 14:39 TING atorvastatin AdvReac Intermediate MUSCLE Verified 04/26/19 14:39 ACHES Cipro AdvReac Intermediate Heart Races Verified 08/02/17 14:57 ciprofloxacin AdvReac Intermediate Heart Races Verified 04/26/19 14:39 metoclopramide AdvReac Intermediate Migraines Verified 04/26/19 14:39 ezetimibe AdvReac Mild Stomach Verified 04/26/19 14:39 Cramps gemfibrozil AdvReac Mild Nausea, Verified 04/26/19 14:39 Heaviness in extremities,Muscle fatigue morphine AdvReac Mild Nausea Verified 04/26/19 14:39 nitrofurantoin AdvReac Mild Headache/ Verified 04/26/19 14:39 Stomach pain [id number] Reductase AdvReac Mild WEAKNESS Verified 04/26/19 14:39 Inhibitor IN ARMS AND LEGS Consultations 04/26/19 16:00 ED Decision to Admit Stat 04/28/19 08:47 Consult Gastroenterology Routine Ordered Studies 04/26/19 14:13 CT abd pelvis wo con Stat Abdominal vasculature: The abdominal aorta is normal in course and caliber noting advanced atherosclerotic calcification. Bowel: There is postoperative change from sigmoid colon resection with co locolonic anastomosis. No bowel obstruction is seen. There is mild diverticulosis of the remaining colon without CT evidence of acute diverticulitis. There is mild wall thickening and edema seen involving the majority of the colon, extending from the cecum to the mid descending colon. There is associated pericolonic inflammation and the appearance is consistent with a nonspecific colitis. The appendix is well-visualized and normal. Peritoneum: There is no intraperitoneal free air or abdominal ascites. Lymphadenopathy: None. Pelvic viscera: The bladder, uterus, and adnexa are normal as imaged. Skeletal structures: The skeletal structures are osteopenic. No lytic or blastic lesions are seen. Mild lumbosacral spondylosis is observed. There are bilateral pars defects at L5. IMPRESSION: 1. Suboptimal examination without oral and IV contrast 2. Findings are consistent with a nonspecific colitis as above. This could be on an infectious, inflammatory, or ischemic basis and clinical correlation be required. 3. There is postoperative change from sigmoid colon resection with colocolonic anastomosis. No bowel obstruction is seen. 4. Additional findings as above. ACT 112: Negative or not required by law. Electronically signed by: Scotty Dominguez M.D. 04/26/2019 2:58 PM Dictated: 04/26/191451 Transcribed: 04/26/19 145 Hospital Course (1) Colitis: (2) GI bleed: Present on admission with abdominal pain associated with bright bleeding per rectum CT ABD/pelvis showed a nonspecific colitis Hgb stable on admission 13, dropped to 11.4 today Last BM was today Continue empirically with IV Flagyl and IV Levaquin (patient has allergy to Cipro however has tolerated Levaquin in the past) C. difficile and stool culture negative Diet advanced to Full liquid EGD 12/2018: Essentially WNL, biopsies negative; colonoscopy 06/2018: Polyps removed with biopsy showing tubular adenoma, diverticulosis within the left colon Hgb 10.4 today GI consulted and recommended no Intervention GI testing needed GI recommended to start on a fiber supplement 1 time daily in addition to MiraLAX 17 g/day. She should follow-up with her regular GI provider in about 3 to 4 months or sooner if needed. Will hold Aspirin for now, then resume once hgb stable Check CBC in 3 to 5 days OK from GI standpoint to discharge home (3) PMR (polymyalgia rheumatica): Continue prednisone (4) Chronic diastolic CHF (congestive heart failure): (5) Moderate aortic stenosis: Appears euvolemic Stable (6) CAD (coronary artery disease): Appears stable, no reports of chest pain Continue to hold aspirin for now due to lower GI bleeding continue beta-patricia, ARMIN inhibitor, statin (7) HTN (hypertension): BP stable Continue carvedilol, terazosin, lisinopril Resume HCTZ on discharge (8) GERD (gastroesophageal reflux disease): Continue H2 patricia, PPI, Carafate CKD stage # It seems like creatinine has been running btw 1.4- 1.7 outpatient Creatinine on admission 1.5, increased to 1.7 yesterday Received IVF Creatinine improved to 1.5 today Monitor BMP Hypokalemia K 3.8 today K stable CODE STATUS FULL CODE Disposition Discharge home today Follow up with your primary care provider with 1 week Follow up with you gastroenterology in 3 to 4 months Check CBC in 3 to 5 days (9) DVT prophylaxis: SCDs due to lower GI bleeding Total Time Total Time Spent Total Time Spent (In Minutes): 35 minutes Total Time Includes: Examination of the Patient, Discharge Planning, Medication Reconciliation, Communication With Other Providers and Other Discharge Plan Discharge Items Patient Disposition: Home - Self-Care Reason For Visit: LOWER GI BLEED, COLITIS Discharge Diagnosis: Colitis: GI bleed: PMR (polymyalgia rheumatica): Chronic diastolic CHF (congestive heart failure): Moderate aortic stenosis: CAD (coronary artery disease): HTN (hypertension): GERD (gastroesophageal reflux disease): CKD stage 3 Hypokalemia Activity: Resume your previous activity Non-emergency contact: Primary Care Provider and Print Finisher Call non-emergency contact if: you have any medication questions and your temperature is above 101 Follow-up/Referrals: Yumiko Paz DO [Primary Care Provider] - 05/01/19 3:25 pm (Apt made 04/28/2019 @ 16:20. [facility] office with Dr. Mccrary) Diet: Heart Healthy Addtl Attending Provider Instructions: Follow up with your primary care provider within 1 week Follow up with your Gastroenterology in 3 to 4 months or sooner if bleeding continues Hold aspirin for now, your physician will tell you when to resume the aspirin Check CBC in 3 - 5 days to monitor your hemoglobin Check BMP with 1 week to monitor your electrolytes Pending Studies at Discharge: No Stand-Alone Forms: My [employer], Smoking Cessation Medications and DC Order Prescriptions: New metronidazole [Flagyl] 500 mg tablet 500 mg PO TID 4 Days Qty: 12 RF: 0 polyethylene glycol 3350 [Miralax] 17 gram powder in packet 17 gm PO DAILY 30 Days Qty: 30 RF: 0 Metamucil (sugar) Powder 1 tbs PO DAILY Qty: 1254 RF: 0 Continued prednisone 5 mg Tablet 5 mg PO QAM RF: 0 aspirin [Aspir-81] 81 mg Tablet,Delayed Release (Dr/Ec) 81 mg PO QAM RF: 0 tramadol 50 mg Tablet 25 mg PO Q8 PRN (Reason: Pain) RF: 0 lorazepam 0.5 mg Tablet 0.5 mg PO Q8 PRN (Reason: Anxiety) RF: 0 nitroglycerin [Nitrostat] 0.4 mg Tablet, Sublingual 1 tab Sublingual DAILY PRN (Reason: Chest Pain) RF: 0 coenzyme Q10 [CoQ-10] 100 mg Capsule 100 mg PO QAM RF: 0 clobetasol-emollient 0.05 % Cream 1 applic TOPICAL BID PRN (Reason: Rash) RF: 0 rosuvastatin 10 mg Tablet 10 mg PO HS RF: 0 carvedilol 6.25 mg Tablet 6.25 mg PO BID RF: 0 cholecalciferol (vitamin D3) 1,000 unit Capsule 2,000 unit PO QAM RF: 0 cetirizine [Zyrtec] 10 mg Tablet 5 mg PO QAM RF: 0 sucralfate [Carafate] 100 mg/mL suspension 10 ml PO QID RF: 0 famotidine 20 mg Tablet 20 mg PO QAM RF: 0 meclizine 25 mg tablet 25 mg PO TID PRN (Reason: Dizziness) RF: 0 pantoprazole [Protonix] 40 mg tablet,delayed release (DR/EC) 40 mg PO BID RF: 0 Maalox//Lidocaine 15 ml PO BID PRN (Reason: Heartburn) RF: 0 ondansetron 4 mg tablet,disintegrating 4 mg PO Q8H PRN (Reason: nausea and vomiting) Qty: 30 RF: 0 lisinopril 10 mg Tablet 10 mg PO AMHS RF: 0 fluticasone propionate [Flonase Allergy Relief] 50 mcg/actuation [place],Suspension 2 spray INTRANASAL HS RF: 0 hydrochlorothiazide 12.5 mg Tablet 6.25 mg PO QAM RF: 0 terazosin 1 mg capsule 1 mg PO QAM RF: 0 Discharge Orders: Discharge Order (Routine); Ordered 04/28/19 Ordered By: Charo Garcia Admission Data Admit Date/Time: 04/26/19 16:11 Attending Provider: Charo Garcia Admit Provider: Salvatore Ayala Primary Care Provider: Yumiko Paz Other Providers: Salvatore Ayala ; Steve Fowler Other Interventions: Discharge Summary Assessment (RN) Last Done: 04/28/19 17:27 DC Date/Time DO NOT enter until pt leaves facility: 04/28/19 19:02
== END 2019-04-28 19:02 | disposition home or self-care (01) ==
LOC: ED 13:28 → 4W 13:28 → SUATTDRO 16:11 → 4W 17:06

== ENCOUNTER 2021-10-17 16:15 | Inpatient (IN) ==
--- NOTE | 2021-10-17 16:26 | ED Triage Note ---
Date of Service October 17, 2021 History of Present Illness This patient was briefly evaluated while in triage. An abbreviated physical exam was performed. This patient is a 86-year-old Female with past medical history of CAD, CABG, CHF, CKD, who presents to the ED for evaluation of constant dizziness and li ghtheadedness x 3 days. Her blood pressure was elevated today so was referred to the emergency department by her primary care provider. No CP or SOB. Will intermittently feel like she may fall over, but not all the time. Physical Exam CONSTITUTIONAL:welll appearing no distress CARDIAC: systolic murmur 4/6 pulmonic region RESPIRATORY: lungs clear to auscultation NEUROLOGIC: no facial palsy, negative pronator drift, sensation intact in b/l upper and lower extremities. gait intact Initial orders for labs and / or imaging were placed and patient was placed in the waiting area until a bed is available. Please see further documentation for the full ED course. MDM / Impression Impression Impression: Acute hyponatremia, Elevated troponin, Weakness, Dizziness
[2021-10-17 17:00] LABS: Basophils # (auto) 0.02 K/uL (0-0.2); Basophils % (auto) 0.2 %; Eosinophils # (auto) 0.05 K/uL (0-0.50); Eosinophils % (auto) 0.6 %; Hematocrit (blood only) 36.1 % (34.1-44.9); Hemoglobin 12.3 g/dl (12.0-16.0); Immature Granulocytes # (auto) 0.06 K/uL (0.00-0.02); Immature Granulocytes % (auto) 0.7 %; Lymphocytes # (auto) 1.09 K/uL (1.2-3.4); Lymphocytes % (auto) 12.6 %; Mean Corpuscular Hemoglobin 31.3 pg (25.0-34.0); Mean Corpuscular Hgb Conc 34.1 g/dL (32.0-36.0); Mean Corpuscular Volume 91.9 fL (80.0-100.0); Mean Platelet Volume 10.5 fL (9.4-12.3); Monocytes # (auto) 0.77 K/uL (0.24-0.82); Monocytes % (auto) 8.9 %; Neutrophils # (auto) 6.63 K/uL (1.4-6.5); Platelet Count 185 K/uL (130-400); RDW Coefficient of Variation 13.4 % (11.5-14.5); RDW Standard Deviation 45.4 fL (36.4-46.3); Red Blood Count 3.93 M/uL (3.93-5.22); White Blood Count 8.62 K/ul (4.8-10.8)
--- NOTE | 2021-10-17 17:00 | CT Scan Report ---
CT head/brain wo con CLINICAL HISTORY: 3 days intermittent lightheadedness/dizziness/HTN COMPARISON STUDY: [address] DOSE: 537.48 mGy.cm TECHNIQUE: Standard CT of the Brain was performed without IV contrast. A dose lowering technique was utilized adhering to the principles of ALARA. FINDINGS: Extraaxial space: There is no evidence for subdural hematoma. There are no extra-axial fluid collecti ons. Ventricles and cisterns: The ventricles are normal in size and configuration. There is no evidence fo r midline shift or mass effect. Parenchyma: There is no subarachnoid or intraparenchymal hemorrhage. There is no evidence for an acut e infarct or cerebral edema. There is mild cerebral cortical atrophy present. There is homogeneous at tenuation of the brain parenchyma. There are no gross mass lesions. Osseous structures: There is no evidence for an acute fracture. The visualized paranasal sinuses are clear. The mastoid air cells are clear bilaterally. Soft tissues: There is no evidence for focal soft tissue swelling. IMPRESSION: 1. No acute intracerebral pathology. 2. Mild cerebral cortical atrophy. ACT 112: Negative or not required by law. Electronically signed by: Dre Ledesma M.D. 10/17/2021 4:59 PM
[2021-10-17 17:33] LABS: Albumin Globulin Ratio 1.4 (0.9-2); Albumin Level 3.7 gm/dl (3.4-5.0); BUN Creatinine Ratio 15.6 (10-20); Bilirubin,Total 0.6 mg/dl (0.2-1.0); Creatinine Clr Calc Pharmacy 26.9 ml/min; Est GFR (African American) 39.3 ml/min; Est GFR (Non-African American) 33.9 ml/min; Globulin 2.7 gm/dl (2.5-4.0); Potassium 3.8 mmol/L (3.5-5.1); Total Protein 6.4 gm/dl (6.0-8.3)
[2021-10-17] MEDS ORDERED: SODIUM CHLORIDE 0.9% 500 ML IV ONE (17:57)
--- NOTE | 2021-10-17 18:02 | Emergency Department Note ---
Impression & Plan Acute hyponatremia, Elevated troponin, Weakness, Dizziness ED Provider Note NAME: ДМИТРИЙ LAKHANI AGE: 86 SEX: F : 1935 ARRIVES VIA: Walk-In INFORMANT: Patient ED PROVIDER(S): Saleem Brice DO CHIEF COMPLAINT: weak and dizzy HPI: Patient is a 86-year-old female who presents the ER for dizziness and weakness. Symptoms started initially on September 29 when she was started on spironolactone and she felt weak and dizzy. This would come and go. She has st opped that. Denies any headache or change in vision. No chest pain or shortness of breath. No nausea vomiting diarrhea. No dysuria urgency or frequency. ROS: See above HPI for pertinent positives & negatives. A total of 10 systems reviewed and were otherwise negative. PAST MEDICAL HISTORY:See Below PAST SURGICAL HISTORY:See Below FAMILY HISTORY:See Below SOCIAL HISTORY:See Below HOME MEDICATIONS:See Below ALLERGIES:See Below VITALS:See Below PHYSICAL EXAMINATION: GENERAL: Sitting up in bed, alert, well appearing, well nourished, no distress, non-toxic EYE EXAM: normal conjunctiva. PERRL and EOM's grossly intact. OROPHARYNX: no exudate, no erythema, lips, buccal mucosa, and tongue normal and mucous membranes are moist NECK: supple, no nuchal rigidity, no adenopathy, non-tender LUNGS: Clear to auscultation. Normal chest wall mechanics HEART: no murmurs, S1 normal and S2 normal ABDOMEN: abdomen soft, non-tender, normo-active bowel sounds, no masses, no rebound or guarding. UPPER EXTREMITIES: upper extremities are grossly normal. LOWER EXTREMITIES: No pitting edema. NEURO EXAM: Normal sensorium, cranial nerves II-XII intact, normal speech, no weakness of arms, no weakness of legs. No drift. Finger to nose intact. Gross sensation intact. MEDICAL DECISION MAKING: Patient is a 86-year-old female who presents ER for above-stated complaint. IV was established blood was obtained. Labs show no significant leukocytosis or anemia. BMP with hyponatremia 123. Troponin was elevated at 50. She denies any chest pain or shortness of breath. COVID was unremarkable. CT head and chest x-ray was unremarkable. Markedly elevated in triage but due to volume patient had a protracted stay in triage and was called back once labs are resulted. She was given a dose of hydralazine. She wass discussed with hospitalist admitted for for further work-up. Triage Nursing notes reviewed. Limited review of prior medical records performed Vital Signs: reviewed and remarkable for HTN Differential diagnosis: Infection, dehydration, metabolic abnormality, hypo/hyperglycemia, electrolyte disturbance, anemia, hypoxia, cardiac sources, intracerebral event, toxicologic, neurologic, as well as other pathologies. ER treatment provided: See below Diagnostics interpreted by me: ECG: Sinus rhythm rate of 65 Left axis No PVCs QTC 449 Cardiac Monitoring: An order was placed for continuous cardiac monitoring. The monitor shows a rate of 70 with sinus rhythm. Laboratory studies: As stated above and show below. Imaging studies: CT Head was negative Portable AP upright 1 view chest unremarkable Consultation(s): none Critical Care: None Past Med/Surg History Medical History (Updated 10/17/21 @ 22:01 by Saleem Brice DO) ASCVD (arteriosclerotic cardiovascular disease) Breast cancer --radiation and sx CAD (coronary artery disease) per outpatient cardiology note," Inferior wall myocardial infarction in A ugust 2007 with cardiac catheterization at [facility] revealing an acutely occluded RCA with significant left main disease. RCA intervention complicated by acute dissection requiring stabilization with 3 bare metal stents, ultimately undergoing CABG x 3 on November 04, 2007 with a CÁRDENAS to the first diagonal branch, SVG to the first obtuse marginal branch, and a SVG to the RCA." Chronic diastolic CHF (congestive heart failure) Chronic kidney disease, stage III (moderate) Constipation Degenerative disc disease Dyslipidemia, goal LDL below 70 Dysphagia Gastroparesis GERD (gastroesophageal reflux disease) Heart attack 2007 - treated at [facility]. follows with Herberth Soler History of DVT (deep vein thrombosis) History of esophageal dilatation HTN (hypertension) IBS (irritable bowel syndrome) Moderate aortic stenosis PMR (polymyalgia rheumatica) Recurrent UTI Tubular adenoma of colon Surgical History History of bilateral breast biopsy malignant History of bilateral cataract extraction History of cardiac [place] [facility] [place] of cataract surgery bilateral History of colonoscopy History of cystoscopy History of esophagogastroduodenoscopy (EGD) History of lumpectomy of right breast History of partial colectomy Due to diverticulitis History of partial mastectomy of left breast History of tooth extraction some lower teeth Hx of cholecystectomy Hx of heart artery stent 2008 @ [facility] x3 stents placed S/P CABG x 3 2007 @ [place] Family History Daughter Family history of diabetes mellitus Heart disease Hypertension Sister Family hx of colon cancer Heart disease Hypertension Father Heart disease Brother Heart disease Hypertension Other No family history of adverse response to anesthesia Social History Smoking Status: Never smoker Second Hand Exposure: No; Hx Alcohol Use: No Hx Substance Use: No Preferred Language: Kinyarwanda Communication Ability: Effective [employer]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 Beliefs That Will Affect Care: None marital status: Current Living Situation: Spouse current occupational status: retired Feels Safe at Home: Yes Assistive Devices: Glasses Allergies Allergies Allergy/AdvReac Type Severity Reaction Status Date / Time domperidone Allergy Severe HEADACE, Verified 08/02/21 08:37 ITCHING, STOMACH PAIN lovastatin Allergy Severe MUSCLE PAIN Verified 08/02/21 08:37 niacin Allergy Severe ANAPHYLAXIS Verified 08/02/21 08:37 Sulfa (Sulfonamide Allergy Severe Tongue Verified 08/02/21 08:37 Antibiotics) Soreness,MOUTH/THROAT SWELLING Penicillins Allergy Intermediate Hives Verified 08/02/21 08:37 clarithromycin Allergy Mild Rash, Verified 08/02/21 08:37 Diarrhea , Shakiness doxycycline Allergy Unknown Unknown Verified 08/02/21 08:37 isosorbide Allergy Unknown Unknown Verified 08/02/21 08:37 amlodipine AdvReac Severe NAUSEA/VOMI Verified 08/02/21 08:37 TING atorvastatin AdvReac Intermediate MUSCLE Verified 08/02/21 08:37 ACHES Cipro AdvReac Intermediate Heart Races Verified 08/02/17 14:57 ciprofloxacin AdvReac Intermediate Heart Races Verified 08/02/21 08:37 metoclopramide AdvReac Intermediate Migraines Verified 08/02/21 08:37 ezetimibe AdvReac Mild Stomach Verified 08/02/21 08:37 Cramps gemfibrozil AdvReac Mild Nausea, Verified 08/02/21 08:37 Heaviness in extremities,Muscle fatigue morphine AdvReac Mild Nausea Verified 08/02/21 08:37 nitrofurantoin AdvReac Mild Headache/ Verified 08/02/21 08:37 Stomach pain Ajponzy-VEF-XiK Reductase AdvReac Mild WEAKNESS Verified 08/02/21 08:37 Inhibitor IN ARMS [Tooqkcm-Ggm-Rkd Reductase AND LEGS Inhibitor] Home Meds Home Medications Medication Instructions Recorded Confirmed carvedilol 6.25 mg tablet 6.25 mg PO BID 01/31/18 10/17/21 coenzyme Q10 100 mg capsule 100 mg PO QAM 01/31/18 10/17/21 (CoQ-10) lorazepam 0.5 mg tablet 0.5 mg PO HS PRN Anxiety 01/31/18 10/17/21 nitroglycerin 0.4 mg sublingual 1 tab sublingual DAILY PRN Chest 01/31/18 10/17/21 tablet (Nitrostat) Pain prednisone 5 mg tablet 5 mg PO QAM 01/31/18 10/17/21 rosuvastatin 10 mg tablet (Crestor) 10 mg PO HS 01/31/18 10/17/21 tramadol 50 mg tablet 25 mg PO Q8 PRN Pain, Severe 01/31/18 10/17/21 lisinopril 10 mg tablet 10 mg PO BID 07/02/18 10/17/21 cetirizine 10 mg tablet (Zyrtec) 5 mg PO HS 03/20/19 10/17/21 sucralfate 100 mg/mL oral 10 ml PO QID 03/20/19 10/17/21 suspension (Carafate) apixaban 2.5 mg tablet (Eliquis) 2.5 mg PO BID 07/28/21 10/17/21 hydrochlorothiazide 12.5 mg tablet 12.5 mg PO QAM 07/28/21 10/17/21 acetaminophen 500 mg tablet 1,000 mg PO Q6H PRN Fever Or Pain 10/17/21 10/17/21 (Tylenol Extra Strength) aspirin 81 mg tablet,delayed 81 mg PO DAILY 10/17/21 10/17/21 release baclofen 10 mg tablet 5 mg PO DAILY 10/17/21 10/17/21 cholecalciferol (vitamin D3) 25 50 mcg PO DAILY 10/17/21 10/17/21 mcg (1,000 unit) tablet (Vitamin D3) cyanocobalamin (vitamin B-12) 500 500 mcg PO DAILY 10/17/21 10/17/21 mcg tablet fluticasone propionate 50 2 spray intranasal DAILY 10/17/21 10/17/21 mcg/actuation nasal spray,suspension meclizine 25 mg tablet 25 mg PO TID PRN Dizziness 10/17/21 10/17/21 montelukast 10 mg tablet 10 mg PO DAILY 10/17/21 10/17/21 omeprazole 40 mg capsule,delayed 40 mg PO DAILY 10/17/21 10/17/21 release spironolactone 25 mg tablet 25 mg PO QAM 10/17/21 10/17/21 Results & Data (ED) Vital Signs Vital Signs - 24 hr 10/17/21 16:22 10/17/21 18:20 10/17/21 20:30 Temperature 36.8 C Temperature Source Temporal Artery Scan Pulse Rate 63 Pulse Rate [Apical] 61 65 Pulse Rhythm [Apical] Regular Regular Pulse Strength [Apical] Normal Respiratory Rate 18 16 16 Respiratory Effort / Characteristics Non-Labored Respiratory Depth Normal Normal Respiratory Pattern Regular Blood Pressure 184/90 H Blood Pressure [Right Arm] 205/101 H Blood Pressure Mean 121 Blood Pressure Mean [Right Arm] 135 Pulse Oximetry 96 97 96 Oxygen Delivery Method Room Air Room Air Room Air Sepsis Recent Fever Within 48 Hours No Sepsis New/Unexplained Change in Mental Status No Sepsis Action Taken by Nursing No Action Required 10/17/21 21:00 Temperature Temperature Source Pulse Rate Pulse Rate [Apical] 62 Pulse Rhythm [Apical] Regular Pulse Strength [Apical] Normal Respiratory Rate 18 Respiratory Effort / Characteristics Respiratory Depth Respiratory Pattern Blood Pressure Blood Pressure [Right Arm] 133/82 Blood Pressure Mean Blood Pressure Mean [Right Arm] 99 Pulse Oximetry 96 Oxygen Delivery Method Sepsis Recent Fever Within 48 Hours Sepsis New/Unexplained Change in Mental Status Sepsis Action Taken by Nursing Laboratory Data Result diagrams: 10/17/21 16:36 10/17/21 16:36 Lab Results 10/17/21 10/17/21 10/17/21 Range/Units 16:36 16:36 Unknown WBC 8.62 (4.8-10.8) K/ul RBC 3.93 (3.93-5.22) M/uL Hgb 12.3 (12.0-16.0) g/dl Hct 36.1 (34.1-44.9) % MCV 91.9 (80.0-100.0) fL MCH 31.3 (25.0-34.0) pg MCHC 34.1 (32.0-36.0) g/dL RDW Std Deviation 45.4 (36.4-46.3) fL RDW Coeff of Bambi 13.4 (11.5-14.5) % Plt Count 185 (130-400) K/uL MPV 10.5 (9.4-12.3) fL Immature Gran % (Auto) 0.7 % Neut % (Auto) 77.0 % Lymph % (Auto) 12.6 % [place] % (Auto) 8.9 % Eos % (Auto) 0.6 % Baso % (Auto) 0.2 % Neut # (Auto) 6.63 H (1.4-6.5) K/uL Lymph # (Auto) 1.09 L (1.2-3.4) K/uL [place] # (Auto) 0.77 (0.24-0.82) K/uL Eos # (Auto) 0.05 (0-0.50) K/uL Baso # (Auto) 0.02 (0-0.2) K/uL Immature Gran # (Auto) 0.06 H (0.00-0.02) K/uL Sodium 123 L (136-145) mmol/L Potassium 3.8 (3.5-5.1) mmol/L Chloride 91 L (98-107) mmol/L Carbon Dioxide 23 (21-32) mmol/L Anion Gap 9 (3-11) BUN 22 (6-23) mg/dl Creatinine 1.41 H (0.6-1.2) mg/dl Est Cr Clr Drug Dosing 26.9 ml/min Est GFR ( Amer) 39.3 ml/min Est GFR (Non-Af Amer) 33.9 ml/min BUN/Creatinine Ratio 15.6 (10-20) Glucose 111 H (70-99(Fasting)) mg/dl Calcium 9.0 (8.5-10.1) mg/dl Total Bilirubin 0.6 (0.2-1.0) mg/dl AST 14 (13-39) U/L ALT 12 (7-52) U/L Alkaline Phosphatase 38 (34-104) U/L Troponin I High Sens 50.0 H* (0-14) pg/ml Total Protein 6.4 (6.0-8.3) gm/dl Albumin 3.7 (3.4-5.0) gm/dl Globulin 2.7 (2.5-4.0) gm/dl Albumin/Globulin Ratio 1.4 (0.9-2) SARS-CoV-2, RNA, NAAT NEGATIVE (NEGATIVE) Administered Medications Discontinued Medications Hydralazine HCl (Hydralazine Hcl 20 Mg/Ml Vial) 10 mg IV NOW STA Stop: 10/17/21 18:34 Last Admin: 10/17/21 19:36 Dose: Not Given Documented By: KV Hydralazine HCl (Hydralazine Hcl 20 Mg/Ml Vial) 5 mg IV NOW ONE Stop: 10/17/21 18:56 Last Admin: 10/17/21 19:35 Dose: 5 mg Documented By: KV Sodium Chloride (Nss) 500 mls @ 999 mls/hr IV .Q31M ONE Stop: 10/17/21 18:27 Last Admin: 10/17/21 18:22 Dose: 999 mls/hr Documented By: HNB Imaging Data Radiologist's Impression: Head CT 10/17/21 16:27 CT head/brain wo con CLINICAL HISTORY: 3 days intermittent lightheadedness/dizziness/HTN COMPARISON STUDY: [address] DOSE: 537.48 mGy.cm TECHNIQUE: Standard CT of the Brain was performed without IV contrast. A dose lowering technique was utilized adhering to the principles of ALARA. FINDINGS: Extraaxial space: There is no evidence for subdural hematoma. There are no extra-axial fluid collections. Ventricles and cisterns: The ventricles are normal in size and configuration. There is no evidence for midline shift or mass effect. Parenchyma: There is no subarachnoid or intraparenchymal hemorrhage. There is no evidence for an acute infarct or cerebral edema. There is mild cerebral cortical atrophy present. There is homogeneous attenuation of the brain parenchyma. There are no gross mass lesions. Osseous structures: There is no evidence for an acute fracture. The visualized paranasal sinuses are clear. The mastoid air cells are clear bilaterally. Soft tissues: There is no evidence for focal soft tissue swelling. IMPRESSION: 1. No acute intracerebral pathology. 2. Mild cerebral cortical atrophy. ACT 112: Negative or not required by law. Electronically signed by: Dre Ledesma M.D. 10/17/2021 4:59 PM Chest X-Ray 10/17/21 17:59 XR chest 1V portable CLINICAL HISTORY: weak. Evaluate cardiopulmonary status COMPARISON STUDY: 03/20/2019 TECHNIQUE: 1 view of the chest FINDINGS: Single frontal view of the chest demonstrates the heart to again be enlarged status post previous cardiothoracic surgery. There is again asymmetric elevation of the right hemidiaphragm with crowding the bronchovascular markings at the right lung base. The lungs are clear of alveolar opacities. There is no evidence for pleural effusion. There is no evidence for vascular congestion. There is no acute osseous pathology. IMPRESSION: 1. No acute cardiopulmonary disease. 2. Cardiomegaly status post cardiothoracic surgery. ACT 112: Negative or not required by law. Electronically signed by: Dre Ledesma M.D. 10/17/2021 6:36 PM Discharge Plan Visit Data Chief Complaint: Hypertension Stated Complaint: DIZZINESS, HIGH BP, WEAKNESS ED Provider: Saleem Brice Discharge Problem: Acute hyponatremia, Elevated troponin, Weakness, Dizziness Forms Stand Alone Forms: [facility] [place] [employer] Prescriptions Prescriptions: No Action prednisone 5 mg Tablet 5 mg PO QAM tramadol 50 mg Tablet 25 mg PO Q8 PRN (Reason: Pain, Severe) Rx Instructions: 1/2 tablet dose lorazepam 0.5 mg Tablet 0.5 mg PO HS PRN (Reason: Anxiety) Rx Instructions: 1 tablet at bedtime and once during the day if needed nitroglycerin [Nitrostat] 0.4 mg Tablet, Sublingual 1 tab Sublingual DAILY PRN (Reason: Chest Pain) coenzyme Q10 [CoQ-10] 100 mg Capsule 100 mg PO QAM rosuvastatin [Crestor] 10 mg Tablet 10 mg PO HS carvedilol 6.25 mg Tablet 6.25 mg PO BID cetirizine [Zyrtec] 10 mg Tablet 5 mg PO HS sucralfate [Carafate] 100 mg/mL suspension 10 ml PO QID lisinopril 10 mg Tablet 10 mg PO BID hydrochlorothiazide 12.5 mg Tablet 12.5 mg PO QAM Eliquis 2.5 mg Tablet 2.5 mg PO BID omeprazole 40 mg capsule,delayed release(DR/EC) 40 mg PO DAILY aspirin 81 mg Tablet,Delayed Release (Dr/Ec) 81 mg PO DAILY spironolactone 25 mg tablet 25 mg PO QAM meclizine 25 mg Tablet 25 mg PO TID PRN (Reason: Dizziness) baclofen 10 mg tablet 5 mg PO DAILY montelukast 10 mg tablet 10 mg PO DAILY acetaminophen [Tylenol Extra Strength] 500 mg Tablet 1,000 mg PO Q6H PRN (Reason: Fever Or Pain) cyanocobalamin (vitamin B-12) 500 mcg Tablet 500 mcg PO DAILY cholecalciferol (vitamin D3) [Vitamin D3] 25 mcg (1,000 unit) Tablet 50 mcg PO DAILY fluticasone propionate [Flonase] 50 mcg/actuation [place],Suspension 2 spray INTRANASAL DAILY Rx Instructions: administer into each nostril Referrals Referrals: Yumiko Paz DO [Primary Care Provider] -
[2021-10-17] MEDS ORDERED: hydrALAZINE HCL 20 MG/ML VIAL IV STA (18:33)
--- NOTE | 2021-10-17 18:37 | XRay Report ---
XR chest 1V portable CLINICAL HISTORY: weak. Evaluate cardiopulmonary status COMPARISON STUDY: 03/20/2019 TECHNIQUE: 1 view of the chest FINDINGS: Single frontal view of the chest demonstrates the heart to again be enlarged status post previous car diothoracic surgery. There is again asymmetric elevation of the right hemidiaphragm with crowding the bronchovascular markings at the right lung base. The lungs are clear of alveolar opacities. There is no evidence for pleural effusion. There is no evidence for vascular congestion. There is no acute os seous pathology. IMPRESSION: 1. No acute cardiopulmonary disease. 2. Cardiomegaly status post cardiothoracic surgery. ACT 112: Negative or not required by law. Electronically signed by: Dre Ledesma M.D. 10/17/2021 6:36 PM
[2021-10-17] MEDS ORDERED: hydrALAZINE HCL 20 MG/ML VIAL IV ONE (18:55)
--- NOTE | 2021-10-17 20:39 | History & Physical Report ---
Date of Service October 17, 2021 Assessment & Plan (1) Hypertensive urgency: (2) Hyponatremia: (3) Elevated troponin: (4) CAD (coronary artery disease): (5) Chronic kidney disease, stage III (moderate): (6) History of DVT (deep vein thrombosis): (7) PMR (polymyalgia rheumatica): (8) Hypercholesteremia: Plan HTN urgency with fatigue and dizziness: -pt denied any CP -CT head: no acute finding - Likely 2/2 not taking aldactone: pt does have hx of labile BP - will start her home medication except for HCTZ and aldactone - will do prn hydralazine - admit to PCU tele - per pt she had N/V with amlodipine which is not an allergic reaction therefore might try addition of amlodipine or hydralazine PO TID dose HypoNa+ and HypoCl: -likely 2/2 HCTZ and aldactone use -pt is s/p 500 cc bolus -will monitor BMP Elevated trop: -EKG: NSR, TWI on lead III (no change from previous EKG) -likely 2/2 demand ischemia -trend trop CAD s/p CABG: -continue statin and aspirin Hx of DVT: -continue eliquis Anxiety/insomnia/PMR/GERD: -continue home medications Diet: Cardiac DVT PPx: Eliquis Code Status: FULL CODE Emergency Contact: Guillaume () [phone] History of Present Illness Chief Complaint: elevated BP and fatigue Primary Care Provider: Yumiko Paz DO Pt is a 86 y/o F with hx of CAD s/p CABGx3, HTN, HLD, CKD III, b/l carotid stenosis, Mild aortic valve stenosis, Asthma, anxiety, Depression, hx of DVT on eliquis, PMR on prednisone, GERD came into the ER for 3 day hx of fatigue, dizziness and feeling shaky and elevated blood pressure since today morning. Pt stopped taking her aldactone due to dizziness and fatigue and today morning she noticed that her BP was 200s systolic. At bedside: pt denied any acute CP, SOB, light headedness or palpitation. Denied any recent fall or syncope. Has been compliant with her HTN meds and denied any recent URI, GI or symptoms. Allergies Allergy/AdvReac Type Severity Reaction Status Date / Time domperidone Allergy Severe HEADACE, Verified 08/02/21 08:37 ITCHING, STOMACH PAIN lovastatin Allergy Severe MUSCLE PAIN Verified 08/02/21 08:37 niacin Allergy Severe ANAPHYLAXIS Verified 08/02/21 08:37 Sulfa (Sulfonamide Allergy Severe Tongue Verified 08/02/21 08:37 Antibiotics) Soreness,MOUTH/THROAT SWELLING Penicillins Allergy Intermediate Hives Verified 08/02/21 08:37 clarithromycin Allergy Mild Rash, Verified 08/02/21 08:37 Diarrhea , Shakiness doxycycline Allergy Unknown Unknown Verified 08/02/21 08:37 isosorbide Allergy Unknown Unknown Verified 08/02/21 08:37 amlodipine AdvReac Severe NAUSEA/VOMI Verified 08/02/21 08:37 TING atorvastatin AdvReac Intermediate MUSCLE Verified 08/02/21 08:37 ACHES Cipro AdvReac Intermediate Heart Races Verified 08/02/17 14:57 ciprofloxacin AdvReac Intermediate Heart Races Verified 08/02/21 08:37 metoclopramide AdvReac Intermediate Migraines Verified 08/02/21 08:37 ezetimibe AdvReac Mild Stomach Verified 08/02/21 08:37 Cramps gemfibrozil AdvReac Mild Nausea, Verified 08/02/21 08:37 Heaviness in extremities,Muscle fatigue morphine AdvReac Mild Nausea Verified 08/02/21 08:37 nitrofurantoin AdvReac Mild Headache/ Verified 08/02/21 08:37 Stomach pain [id number]-[id number]-JzK Reductase AdvReac Mild WEAKNESS Verified 08/02/21 08:37 Inhibitor IN ARMS [Tfyewbz-Rna-Xcz Reductase AND LEGS Inhibitor] Home Medications Medication Instructions Recorded Confirmed Type carvedilol 6.25 mg tablet 6.25 mg PO BID 01/31/18 10/17/21 History coenzyme Q10 100 mg capsule 100 mg PO QAM 01/31/18 10/17/21 History (CoQ-10) lorazepam 0.5 mg tablet 0.5 mg PO HS PRN Anxiety 01/31/18 10/17/21 History nitroglycerin 0.4 mg sublingual 1 tab sublingual DAILY PRN Chest 01/31/18 10/17/21 History tablet (Nitrostat) Pain prednisone 5 mg tablet 5 mg PO QAM 01/31/18 10/17/21 History rosuvastatin 10 mg tablet (Crestor) 10 mg PO HS 01/31/18 10/17/21 History tramadol 50 mg tablet 25 mg PO Q8 PRN Pain, Severe 01/31/18 10/17/21 History lisinopril 10 mg tablet 10 mg PO BID 07/02/18 10/17/21 History cetirizine 10 mg tablet (Zyrtec) 5 mg PO HS 03/20/19 10/17/21 History sucralfate 100 mg/mL oral 10 ml PO QID 03/20/19 10/17/21 History suspension (Carafate) apixaban 2.5 mg tablet (Eliquis) 2.5 mg PO BID 07/28/21 10/17/21 History hydrochlorothiazide 12.5 mg tablet 12.5 mg PO QAM 07/28/21 10/17/21 History acetaminophen 500 mg tablet 1,000 mg PO Q6H PRN Fever Or Pain 10/17/21 10/17/21 History (Tylenol Extra Strength) aspirin 81 mg tablet,delayed 81 mg PO DAILY 10/17/21 10/17/21 History release baclofen 10 mg tablet 5 mg PO DAILY 10/17/21 10/17/21 History cholecalciferol (vitamin D3) 25 50 mcg PO DAILY 10/17/21 10/17/21 History mcg (1,000 unit) tablet (Vitamin D3) cyanocobalamin (vitamin B-12) 500 500 mcg PO DAILY 10/17/21 10/17/21 History mcg tablet fluticasone propionate 50 2 spray intranasal DAILY 10/17/21 10/17/21 History mcg/actuation nasal spray,suspension meclizine 25 mg tablet 25 mg PO TID PRN Dizziness 10/17/21 10/17/21 History montelukast 10 mg tablet 10 mg PO DAILY 10/17/21 10/17/21 History omeprazole 40 mg capsule,delayed 40 mg PO DAILY 10/17/21 10/17/21 History release spironolactone 25 mg tablet 25 mg PO QAM 10/17/21 10/17/21 History Past Med/Surg History Medical History (Updated 10/17/21 @ 20:37 by Bola Mccrary MD) ASCVD (arteriosclerotic cardiovascular disease) Breast cancer --radiation and sx CAD (coronary artery disease) per outpatient cardiology note," Inferior wall myocardial infarction in October 2007 with cardiac catheterization at [facility] revealing an acutely occluded RCA with significant left main disease. RCA intervention complicated by acute dissection requiring stabilization with 3 bare metal stents, ultimately undergoing CABG x 3 on November 04, 2007 with a CÁRDENAS to the first diagonal branch, SVG to the first obtuse marginal branch, and a SVG to the RCA." Chronic diastolic CHF (congestive heart failure) Chronic kidney disease, stage III (moderate) Constipation Degenerative disc disease Dyslipidemia, goal LDL below 70 Dysphagia Gastroparesis GERD (gastroesophageal reflux disease) Heart attack 2007 - treated at [facility]. follows with Herberth Soler History of DVT (deep vein thrombosis) History of esophageal dilatation HTN (hypertension) IBS (irritable bowel syndrome) Moderate aortic stenosis PMR (polymyalgia rheumatica) Recurrent UTI Tubular adenoma of colon Surgical History History of bilateral breast biopsy malignant History of bilateral cataract extraction [place] of cardiac [place] [facility] [place] of cataract surgery bilateral History of colonoscopy History of cystoscopy History of esophagogastroduodenoscopy (EGD) History of lumpectomy of right breast History of partial colectomy Due to diverticulitis History of partial mastectomy of left breast History of tooth extraction some lower teeth Hx of cholecystectomy Hx of heart artery stent 2007 @ [facility] x3 stents placed S/P CABG x 3 2007 @ [place] Family History Daughter Family history of diabetes mellitus Heart disease Hypertension Sister Family hx of colon cancer Heart disease Hypertension Father Heart disease Brother Heart disease Hypertension Other No family history of adverse response to anesthesia Social History Smoking Status: Never smoker Second Hand Exposure: No; Hx Alcohol Use: No Hx Substance Use: No Preferred Language: Iranian Communication Ability: Effective Continuity Editor Required: No Beliefs That Will Affect Care: None marital status: Current Living Situation: Spouse current occupational status: retired Feels Safe at Home: Yes Assistive Devices: Glasses Review of Systems Review of Systems: At least 10 Review of systems were reviewed and all negative except as indicated in HPI Physical Exam Physical Exam: General:. NAD, well developed, well nourished, average body hab itus HEENT:. Normocephalic and atraumatic, Normal Conjunctiva, EOMI, Sclera is non- icteric Lungs:. No signs of respiratory distress, CTA, no wheezing or crackles Heart:.systolic murmur, Normal S1, S2 Abdominal:. ND, Soft, NT MSK:. No deformities of UE and LE, No leg edema Psych:. AAOx3, normal affect Results & Data Results & Data ([facility]) Vital Signs (Past 12 Hours) Vital Signs Temp Pulse Pulse Resp BP BP Pulse Ox 10/17/21 20:30 65 16 96 10/17/21 18:20 61 16 205/101 H 97 10/17/21 16:22 36.8 C 63 18 184/90 H 96 O2 Del Method 10/17/21 20:30 Room Air 10/17/21 18:20 Room Air 10/17/21 16:22 Room Air Laboratory Results Short CBC 10/17/21 Range/Units 16:36 WBC 8.62 (4.8-10.8) K/ul Hgb 12.3 (12.0-16.0) g/dl Hct 36.1 (34.1-44.9) % Plt Count 185 (130-400) K/uL BMP 10/17/21 16:36 Sodium 123 L Potassium 3.8 Chloride 91 L Carbon Dioxide 23 BUN 22 Creatinine 1.41 H Glucose 111 H Calcium 9.0 Liver Function 10/17/21 Range/Units 16:36 Total Bilirubin 0.6 (0.2-1.0) mg/dl AST 14 (13-39) U/L ALT 12 (7-52) U/L Alkaline Phosphatase 38 (34-104) U/L Albumin 3.7 (3.4-5.0) gm/dl Diagnostic Findings Head CT 10/17/21 16:27 CT head/brain wo con CLINICAL HISTORY: 3 days intermittent lightheadedness/dizziness/HTN COMPARISON STUDY: [address] DOSE: 537.48 mGy.cm TECHNIQUE: Standard CT of the Brain was performed without IV contrast. A dose lowering technique was utilized adhering to the principles of ALARA. FINDINGS: Extraaxial space: There is no evidence for subdural hematoma. There are no extra-axial fluid collections. Ventricles and cisterns: The ventricles are normal in size and configuration. There is no evidence for midline shift or mass effect. Parenchyma: There is no subarachnoid or intraparenchymal hemorrhage. There is no evidence for an acute infarct or cerebral edema. There is mild cerebral cortical atrophy present. There is homogeneous attenuation of the brain parenchyma. There are no gross mass lesions. Osseous structures: There is no evidence for an acute fracture. The visualized paranasal sinuses are clear. The mastoid air cells are clear bilaterally. Soft tissues: There is no evidence for focal soft tissue swelling. IMPRESSION: 1. No acute intracerebral pathology. 2. Mild cerebral cortical atrophy. ACT 112: Negative or not required by law. Electronically signed by: Dre Ledesma M.D. 10/17/2021 4:59 PM Chest X-Ray 10/17/21 17:59 XR chest 1V portable CLINICAL HISTORY: weak. Evaluate cardiopulmonary status COMPARISON STUDY: 03/20/2019 TECHNIQUE: 1 view of the chest FINDINGS: Single frontal view of the chest demonstrates the heart to again be enlarged status post previous cardiothoracic surgery. There is again asymmetric elevation of the right hemidiaphragm with crowding the bronchovascular markings at the right lung base. The lungs are clear of alveolar opacities. There is no evidence for pleural effusion. There is no evidence for vascular congestion. There is no acute osseous pathology. IMPRESSION: 1. No acute cardiopulmonary disease. 2. Cardiomegaly status post cardiothoracic surgery. ACT 112: Negative or not required by law. Electronically signed by: Dre Ledesma M.D. 10/17/2021 6:36 PM Code Status & VTE Plan VTE Prophylaxis Plan VTE Prophylaxis will be ordered: Yes
[2021-10-18] MEDS ORDERED: NITROGLYCERIN SL 0.4 MG/TAB TAB SL PRN (00:49)
[2021-10-18] MEDS ORDERED: MECLIZINE HCL 25 MG TAB PO PRN (00:49)
[2021-10-18] MEDS ORDERED: LORazepam 0.5 MG TAB PO PRN (00:49)
[2021-10-18] MEDS: APIXABAN 2.5 MG TAB PO SCH ×3 (01:55→19:50)
[2021-10-18] MEDS: CETIRIZINE HCL 10 MG TABLET PO SCH ×2 (01:56→19:50)
[2021-10-18] MEDS: carvediloL 6.25 MG TAB PO SCH ×3 (01:56→19:48)
[2021-10-18] MEDS: ROSUVASTATIN CALCIUM 10 MG TAB PO SCH ×2 (01:56→19:50)
[2021-10-18] MEDS: lisinopril 10 MG TAB PO SCH ×3 (01:56→19:50)
[2021-10-18] MEDS: SUCRALFATE 1 GM/10 ML UDC PO SCH ×5 (01:57→19:47)
[2021-10-18 06:52] LABS: Basophils # (auto) 0.01 K/uL (0-0.2); Basophils % (auto) 0.2 %; Eosinophils # (auto) 0.18 K/uL (0-0.50); Eosinophils % (auto) 2.8 %; Hematocrit (blood only) 33.5 % (34.1-44.9); Hemoglobin 11.7 g/dl (12.0-16.0); Immature Granulocytes # (auto) 0.03 K/uL (0.00-0.02); Immature Granulocytes % (auto) 0.5 %; Lymphocytes # (auto) 1.48 K/uL (1.2-3.4); Lymphocytes % (auto) 22.7 %; Mean Corpuscular Hemoglobin 31.8 pg (25.0-34.0); Mean Corpuscular Hgb Conc 34.9 g/dL (32.0-36.0); Mean Platelet Volume 10.3 fL (9.4-12.3); Monocytes # (auto) 0.86 K/uL (0.24-0.82); Monocytes % (auto) 13.2 %; Neutrophils # (auto) 3.97 K/uL (1.4-6.5); Neutrophils % (auto) 60.6 %; Platelet Count 149 K/uL (130-400); RDW Coefficient of Variation 13.3 % (11.5-14.5); RDW Standard Deviation 44.5 fL (36.4-46.3); Red Blood Count 3.68 M/uL (3.93-5.22); White Blood Count 6.53 K/ul (4.8-10.8)
[2021-10-18 07:23] LABS: Albumin Globulin Ratio 1.5 (0.9-2); Albumin Level 3.2 gm/dl (3.4-5.0); BUN Creatinine Ratio 14.4 (10-20); Bilirubin,Total 0.7 mg/dl (0.2-1.0); Calcium 8.4 mg/dl (8.5-10.1); Creatinine Clr Calc Pharmacy 30.4 ml/min; Est GFR (African American) 45.4 ml/min; Est GFR (Non-African American) 39.2 ml/min; Globulin 2.2 gm/dl (2.5-4.0); Magnesium 1.3 mg/dl (1.7-2.4); Potassium 3.7 mmol/L (3.5-5.1); Total Protein 5.4 gm/dl (6.0-8.3)
[2021-10-18] MEDS: ACETAMINOPHEN 325 MG TAB PO PRN ×2 (07:40→18:06)
[2021-10-18] MEDS ORDERED: NON-FORMULARY MEDICATION (Coenzyme Q10 [Coq-10] 100 mg Capsule) PO SCH (09:00)
[2021-10-18] MEDS: PANTOprazole 40 MG TAB PO SCH (09:01)
[2021-10-18] MEDS: predniSONE 5 MG TAB PO SCH (09:01)
[2021-10-18] MEDS: BACLOFEN 10 MG TAB PO SCH (09:01)
[2021-10-18] MEDS: MONTELUKAST SODIUM 10 MG TABLET PO SCH (09:01)
[2021-10-18] MEDS: CHOLECALCIFEROL 1,000 UNITS 25 MCG TAB PO SCH (09:01)
[2021-10-18] MEDS: ASPIRIN 81 MG ECTAB PO SCH (09:02)
[2021-10-18] MEDS: traMADol HCL 50 MG TABLET PO PRN (09:07)
[2021-10-18] MEDS: CYANOCOBALAMIN (B-12) 500 MCG TABLET PO SCH (09:15)
[2021-10-18] MEDS: hydrALAZINE HCL 20 MG/ML VIAL IV PRN ×2 (09:59→19:51)
[2021-10-18] MEDS: ONDANSETRON INJ 2 MG/ML 2 ML VIAL IV SCH ×4 (10:51→23:20)
--- NOTE | 2021-10-18 16:56 | Hospitalist Progress Note ---
Date of Service October 18, 2021 Assessment & Plan (1) Hypertensive urgency: (2) Hyponatremia: (3) Elevated troponin: (4) CAD (coronary artery disease): (5) Chronic kidney disease, stage III (moderate): (6) History of DVT (deep vein thrombosis): (7) PMR (polymyalgia rheumatica): (8) Hypercholesteremia: Plan HTN urgency with fatigue and dizziness: -pt denied any CP but complains to have some headache which improved later on -CT head: no acute finding - Likely 2/2 not taking aldactone: pt does have hx of labile BP - will start her home medication except for HCTZ and aldactone -Has been on as needed IV hydralazine - per pt she had N/V with amlodipine which is not an allergic reaction therefore might try addition of amlodipine or hydralazine PO TID dose -Blood pressure is reasonably controlled with carvedilol 6.25 mg twice daily and lisinopril 10 mg p.o. twice daily -Headache is improved HypoNa+ and HypoCl: -likely 2/2 HCTZ and aldactone use and low salt intake -pt is s/p 500 cc bolus -will monitor BMP -Sodium remains low at 129 -We will monitor PRP Elevated trop: -EKG: NSR, TWI on lead III (no change from previous EKG) -likely 2/2 demand ischemia -Serial troponins do not show any evidence of ACS CAD s/p CABG: -continue statin and aspirin -Denies any chest pain Hx of DVT: -continue eliquis Anxiety/insomnia/PMR/GERD: -continue home medications Diet: Cardiac DVT PPx: Eliquis Code Status: FULL CODE Emergency Contact: Guillaume () [phone] Admission and Anticipated Discharge Date Admission Date: October 17, 2021 Subjective 10/18/2021 The patient was seen and examined in emergency room She has been complaining of headache without any other neurological symptoms Denies to have any nausea and or vomiting Denies any chest pain or palpitation Review of Systems Review of Systems: All systems reviewed and are unremarkable except as noted below Neurologic: Headache without any nausea and or vomiting Physical Exam Physical Exam: Lying in bed comfortably with minimal headache during examination Constitutional: well developed, well nourished and + obese; not ill appearing Eyes: PERRL, conjunctivae normal, anicteric sclerae ENMT: external ear and nose normal, oropharynx normal Neck: trachea midline, no thyromegaly Respiratory: no respiratory distress Auscultation: lungs clear to auscultation bilaterally Cardiovascular: Rate/Rhythm: regular rate and regular rhythm; not tachycardic Heart Sounds: normal S1, normal S2 and + murmur (2/6 ESM over precordium) Extremities: no edema Gastrointestinal (Abdomen): Inspection/Auscultation: normal bowel sounds; abdomen not distended Percussion/Palpation: abdomen soft; abdomen nontender Musculoskeletal: No acute arthritis in any joint Neurologic: Alert, awake and oriented x3. No focal sensory or no motor deficit appreciated Psychiatric: A+Ox3, euthymic affect Lymphatic: no cervical or axillary lymphadenopathy Results & Data Results & Data ([facility]) Vital Signs (Past 12 Hours) Vital Signs Temp Pulse Pulse Resp BP BP Pulse Ox 10/18/21 15:40 58 L 10/18/21 15:14 36.6 C 59 L 16 160/71 H 95 10/18/21 14:44 57 L 18 144/83 H 95 10/18/21 11:34 124/54 L 10/18/21 11:26 60 18 122/48 L 95 10/18/21 11:00 66 16 150/75 H 95 10/18/21 10:27 66 16 158/63 H 96 10/18/21 10:03 58 L 16 188/71 H 96 10/18/21 09:56 57 L 16 188/71 H 95 10/18/21 08:34 61 16 213/67 H 95 10/18/21 07:43 59 L 16 105/67 95 10/18/21 06:00 58 L 13 171/53 H 94 10/18/21 05:00 58 L 22 102/50 L 93 O2 Del Method 10/18/21 15:40 10/18/21 15:14 Room Air 10/18/21 14:44 Room Air 10/18/21 11:34 10/18/21 11:26 Room Air 10/18/21 11:00 Room Air 10/18/21 10:27 Room Air 10/18/21 10:03 Room Air 10/18/21 09:56 Room Air 10/18/21 08:34 Room Air 10/18/21 07:43 Room Air 10/18/21 06:00 10/18/21 05:00 Laboratory Results Short CBC 10/17/21 10/18/21 Range/Units 16:36 06:41 WBC 8.62 6.53 (4.8-10.8) K/ul Hgb 12.3 11.7 L (12.0-16.0) g/dl Hct 36.1 33.5 L (34.1-44.9) % Plt Count 185 149 (130-400) K/uL BMP 10/17/21 10/18/21 16:36 06:41 Sodium 123 L 126 L Potassium 3.8 3.7 Chloride 91 L 94 L Carbon Dioxide 23 25 BUN 22 18 Creatinine 1.41 H 1.25 H Glucose 111 H 99 Calcium 9.0 8.4 L Liver Function 10/17/21 10/18/21 Range/Units 16:36 06:41 Total Bilirubin 0.6 0.7 (0.2-1.0) mg/dl AST 14 13 (13-39) U/L ALT 12 9 (7-52) U/L Alkaline Phosphatase 38 32 L (34-104) U/L Albumin 3.7 3.2 L (3.4-5.0) gm/dl Medications Administered Current Inpatient Medications Acetaminophen (Acetaminophen 325 Mg Tab) 650 mg PO Q4H PRN PRN Reason: Pain or Fever Stop: 11/17/21 00:48 Last Admin: 10/18/21 07:40 Dose: 650 mg Apixaban (Apixaban 2.5 Mg Tab) 2.5 mg PO BID DMITRIY Stop: 11/17/21 00:48 Last Admin: 10/18/21 09:14 Dose: 2.5 mg Aspirin (Aspirin 81 Mg Ectab) 81 mg PO DAILY DMITRIY Stop: 11/17/21 08:59 Last Admin: 10/18/21 09:02 Dose: 81 mg Baclofen (Baclofen 10 Mg Tab) 5 mg PO DAILY DMITIRY Stop: 11/17/21 08:59 Last Admin: 10/18/21 09:01 Dose: 5 mg Carvedilol (Carvedilol 6.25 Mg Tab) 6.25 mg PO BID [facility] Stop: 11/17/21 00:48 Last Admin: 10/18/21 09:14 Dose: 6.25 mg Cetirizine HCl (Cetirizine Hcl 10 Mg Tablet) 5 mg PO HS DMITRIY Stop: 11/17/21 00:48 Last Admin: 10/18/21 01:56 Dose: 5 mg Cyanocobalamin (Cyanocobalamin (B-12) 500 Mcg Tablet) 500 mcg PO DAILY DMITRIY Stop: 11/17/21 08:59 Last Admin: 10/18/21 09:15 Dose: 500 mcg Hydralazine HCl (Hydralazine Hcl 20 Mg/Ml Vial) 10 mg IV NOW PRN PRN Reason: Blood Pressure - High Stop: 11/17/21 09:34 Last Admin: 10/18/21 09:59 Dose: 10 mg Lisinopril (Lisinopril 10 Mg Tab) 10 mg PO BID DMITRIY Stop: 11/17/21 00:48 Last Admin: 10/18/21 09:15 Dose: 10 mg Lorazepam (Lorazepam 0.5 Mg Tab) 0.5 mg PO HS PRN PRN Reason: Anxiety Stop: 11/17/21 00:48 Meclizine HCl (Meclizine Hcl 25 Mg Tab) 25 mg PO TID PRN PRN Reason: Dizziness Stop: 11/17/21 00:48 Montelukast Sodium (Montelukast Sodium 10 Mg Tablet) 10 mg PO DAILY DMITRIY Stop: 11/17/21 08:59 Last Admin: 10/18/21 09:01 Dose: 10 mg Nitroglycerin (Nitroglycerin Sl 0.4 Mg/Tab Tab) 0.4 mg SL DAILY PRN PRN Reason: Chest Pain Stop: 11/17/21 00:48 Ondansetron HCl (Ondansetron Inj 2 Mg/Ml 2 Ml Vial) 4 mg IV Q6H DMITRIY Stop: 11/17/21 10:44 Last Admin: 10/18/21 16:31 Dose: 4 mg Pantoprazole Sodium (Pantoprazole 40 Mg Tab) 40 mg PO DAILY DMITRIY Stop: 11/17/21 08:59 Last Admin: 10/18/21 09:01 Dose: 40 mg Prednisone (Prednisone 5 Mg Tab) 5 mg PO QAM DMITRIY Stop: 11/17/21 08:59 Last Admin: 10/18/21 09:01 Dose: 5 mg Rosuvastatin Calcium (Rosuvastatin Calcium 10 Mg Tab) 10 mg PO HS DMITRIY Stop: 11/17/21 00:48 Last Admin: 10/18/21 01:56 Dose: 10 mg Sucralfate (Sucralfate 1 Gm/10 Ml Udc) 1 gm PO ACHS [facility] Stop: 11/17/21 00:48 Last Admin: 10/18/21 16:30 Dose: 1 gm Tramadol HCl (Tramadol Hcl 50 Mg Tablet) 25 mg PO Q8 PRN PRN Reason: Pain, Severe 7-10 Stop: 11/17/21 00:48 Last Admin: 10/18/21 09:07 Dose: 25 mg Vitamin D (Cholecalciferol 1,000 Units 25 Mcg Tab) 2,000 units PO DAILY DMITRIY Stop: 11/17/21 08:59 Last Admin: 10/18/21 09:01 Dose: 2,000 units
[2021-10-18] MEDS ORDERED: diphenhydrAMINE Capsule 25 MG CAP PO ONE (18:49)
[2021-10-18] MEDS: PROMETHAZINE HCL 12.5 MG in SODIUM CHLORIDE 0.9% 50 ML IV PRN (21:05)
[2021-10-19] MEDS: PROMETHAZINE HCL 12.5 MG in SODIUM CHLORIDE 0.9% 50 ML IV PRN (03:12)
[2021-10-19] MEDS: ONDANSETRON INJ 2 MG/ML 2 ML VIAL IV SCH ×4 (03:48→22:41)
[2021-10-19] MEDS: ACETAMINOPHEN 325 MG TAB PO PRN ×2 (06:15→14:46)
[2021-10-19] MEDS: SUCRALFATE 1 GM/10 ML UDC PO SCH ×4 (06:15→20:03)
[2021-10-19 06:34] LABS: Basophils # (auto) 0.02 K/uL (0-0.2); Basophils % (auto) 0.2 %; Eosinophils # (auto) 0.18 K/uL (0-0.50); Eosinophils % (auto) 1.8 %; Hematocrit (blood only) 33.4 % (34.1-44.9); Hemoglobin 11.7 g/dl (12.0-16.0); Immature Granulocytes # (auto) 0.03 K/uL (0.00-0.02); Immature Granulocytes % (auto) 0.3 %; Lymphocytes # (auto) 1.08 K/uL (1.2-3.4); Mean Corpuscular Hemoglobin 31.4 pg (25.0-34.0); Mean Corpuscular Volume 89.5 fL (80.0-100.0); Mean Platelet Volume 10.3 fL (9.4-12.3); Monocytes # (auto) 1.05 K/uL (0.24-0.82); Monocytes % (auto) 10.7 %; Neutrophils # (auto) 7.49 K/uL (1.4-6.5); Platelet Count 151 K/uL (130-400); RDW Coefficient of Variation 13.2 % (11.5-14.5); RDW Standard Deviation 43.5 fL (36.4-46.3); Red Blood Count 3.73 M/uL (3.93-5.22); White Blood Count 9.85 K/ul (4.8-10.8)
[2021-10-19 07:02] LABS: BUN Creatinine Ratio 14.9 (10-20); Calcium 8.1 mg/dl (8.5-10.1); Creatinine Clr Calc Pharmacy 37.6 ml/min; Est GFR (African American) 58.8 ml/min; Est GFR (Non-African American) 50.7 ml/min; Potassium 3.2 mmol/L (3.5-5.1)
[2021-10-19] MEDS ORDERED: POTASSIUM CHLORIDE CRTAB 20 MEQ TABCR PO ONE (08:07)
[2021-10-19] MEDS ORDERED: MAGNESIUM SULFATE / D5W 1 GM/100 ML BAG IV ONE (08:07)
[2021-10-19] MEDS ORDERED: hydrALAZINE HCL 20 MG/ML VIAL IV PRN (08:13)
[2021-10-19] MEDS: traMADol HCL 50 MG TABLET PO PRN ×2 (08:33→16:25)
[2021-10-19] MEDS: BACLOFEN 10 MG TAB PO SCH (08:35)
[2021-10-19] MEDS: lisinopril 10 MG TAB PO SCH ×2 (08:36→20:02)
[2021-10-19] MEDS: predniSONE 5 MG TAB PO SCH (08:36)
[2021-10-19] MEDS: CHOLECALCIFEROL 1,000 UNITS 25 MCG TAB PO SCH (08:37)
[2021-10-19] MEDS: ASPIRIN 81 MG ECTAB PO SCH (08:37)
[2021-10-19] MEDS: PANTOprazole 40 MG TAB PO SCH (08:37)
[2021-10-19] MEDS: CYANOCOBALAMIN (B-12) 500 MCG TABLET PO SCH (08:37)
[2021-10-19] MEDS: MONTELUKAST SODIUM 10 MG TABLET PO SCH (08:38)
[2021-10-19] MEDS: carvediloL 6.25 MG TAB PO SCH ×2 (08:38→20:03)
[2021-10-19] MEDS: APIXABAN 2.5 MG TAB PO SCH ×2 (08:38→20:02)
[2021-10-19] MEDS: SODIUM CHLORIDE 0.9% 1000ML 1,000 ML IV SCH ×2 (10:46→22:41)
--- NOTE | 2021-10-19 11:23 | Consultation Report ---
NEPHROLOGY CONSULTATION NOTE DATE OF SERVICE: 10/19/2021. REASON FOR CONSULTATION: Hyponatremia. HISTORY OF PRESENT ILLNESS: The patient is an 86-year-old female who had a completely normal serum s odium on 10/13/2021, which would be just a week prior to hospitalization. She presented to the [facility] 2 days ago because of fatigue, dizziness, feeling shaky and very elevated blood pressure. She no ticed that her blood pressure was 200 systolic. Blood work done in the Emergency Department was sign ificant for serum sodium of 123 and 2 days later still 122. She received little bit of fluid at the time of admission. The patient has been on hydrochlorothiazide for many years, but spironolactone wa s added about 2 weeks ago. At this time, patient's blood pressure is completely normal at 128/60. S he was having some nausea and fatigue and dizziness. At this time, she is on carvedilol, lisinopril and seems to be able to control the blood pressure normally. Her magnesium was also low, and she has received IV magnesium. PAST MEDICAL AND SURGICAL HISTORY: Includes history of breast cancer, coronary artery disease, chron ic diastolic heart failure, chronic kidney disease stage IIIA, constipation, degenerative disk diseas e, hyperlipidemia, gastroparesis, coronary artery disease, status post [place] in 2007, history of DVT, hi story of esophageal dilatation, hypertension, irritable bowel syndrome, moderate aortic stenosis, rec urrent UTI, history of bilateral cataract surgery, colonoscopy, cystoscopy, EGD, lumpectomy, partial colectomy due to diverticulitis, partial mastectomy, coronary artery stent, status post CABG x3, 2008 . ALLERGIES: Allergy list was reviewed and is extensive and is as per the H and P and medicine reconci liation list. MEDICATIONS: Home medication list was also reviewed in full detail. She was on hydrochlorothiazide 12.5 daily and newly started spironolactone 25 daily. Medication list was reviewed in detail and is as per the reconciliation list and H and P. FAMILY HISTORY: Negative for renal disease or dialysis. SOCIAL HISTORY: The patient never smoked. She is and lives with her spouse. No oxygen at h ome. REVIEW OF SYSTEMS: She was having nonspecific symptoms like lethargy, fatigue, feeling shaky. Blood pressure was high, but otherwise denied any nausea, vomiting, diarrhea, chest pain, shortness of eloisa ath, orthopnea, urinary complaints, major weight change. Twelve systems was reviewed and is otherwis e negative. PHYSICAL EXAMINATION: GENERAL: Elderly white female who is awake, alert, oriented x3. HEENT: Mucous membrane is moist. NECK: Supple. No jugular venous distention. VITAL SIGNS: Blood pressure is 128/60, pulse rate 76, temperature 37 degrees Celsius, 94% on room ai r. CHEST: Bilaterally clear to auscultation. CARDIOVASCULAR: S1 and S2, regular. ABDOMEN: Soft, nontender. EXTREMITIES: Show no edema. NEUROLOGIC: She is fully awake and alert and oriented x3 and was able to give me a detailed account of her medication list as well as her problem list. LABORATORY TEST: As stated in HPI, she had a completely normal sodium on 10/13/2021 as an outpatient . On admission, two days ago, she had a sodium of 123 and two days later still low at 122, potassium 3.2, chloride 90, BUN 15, creatinine 1.01. Magnesium 1.3. Chest x-ray, no acute cardiopulmonary disease. CT scan of the head, no acute finding. Urine test, not done yet. ASSESSMENT AND PLAN: An 86-year-old female admitted with nonspecific symptoms and was found to have new onset hyponatremia as well as hypertensive urgency. I have been consulted for hyponatremia. Hyponatremia, as stated earlier, she had a completely normal sodium on 10/13/2021, but four days late r, at the time of admission, she had a serum sodium of 123. This is a very rapid drop in the serum s odium. She has been on hydrochlorothiazide for many years, so I do not believe that alone would caus e this, but she was recently started on spironolactone and the combination of hydrochlorothiazide and spironolactone in a susceptible elderly female patient can cause sudden onset hyponatremia. I agree with stopping both the drugs for the time being. I would also give her a little bit of normal salin e to account for the sodium deficit that could have arise from the combination of hydrochlorothiazide and spironolactone. We do need to check urine osmolality to further categorize the etiology of hypo natremia. Her initial symptoms could very well be from hyponatremia as it happened very suddenly. B MP twice daily. I will continue to follow the patient. Thank you very much for the consult. Job ID: [id number]
--- NOTE | 2021-10-19 16:02 | Hospitalist Progress Note ---
Date of Service October 19, 2021 Assessment & Plan (1) Hypertensive urgency: (2) Hyponatremia: (3) Elevated troponin: (4) CAD (coronary artery disease): (5) Chronic kidney disease, stage III (moderate): (6) History of DVT (deep vein thrombosis): (7) PMR (polymyalgia rheumatica): (8) Hypercholesteremia: Plan Hypertensive urgency --CT Head:No acute intracerebral pathology. Mild cerebral cortical atrophy. Patient was non taking Aldactone as prescribed Continue carvedilol, lisinopril IV hydralazine as needed Spironolactone, HCTZ on hold due to yponatremia Monitor Hyponatremia Likely due to combination of HCTZ, Aldactone IV fluids as per Nephrology Monitor Sodium levels Check UA, urine and serum osmolality, urine sodium Appreciate nephrology input Hypomagnesemia Replete as needed Elevated trop: EKG: NSR, TWI on lead III (no change from previous EKG) likely 2/2 demand ischemia Serial troponins do not show any evidence of ACS Patient denies chest pain, dyspnea CAD s/p CABG: continue Aspirin, statin Hx of DVT: continue Eliquis Anxiety/insomnia/PMR/GERD: continue home medications DVT Px: Eliquis Code Status: FULL CODE Admission and Anticipated Discharge Date Admission Date: October 17, 2021 Subjective Patient is seen and examined at bedside States feeling better today Headache, dizziness, nausea much better today Denies chest pain, shortness of breath, abdominal pain Offers no other complaints Review of Systems Review of Systems: All systems reviewed & are unremarkable except as noted in Subjective Physical Exam Physical Exam: Physical Exam: Vitals signs as noted above General Appearance:Moderately built and nourished, no apparent distress Head: normocephalic, Atraumatic Eyes: normal inspection, EOMI Neck: supple, Trachea midline Respiratory/Chest: Normal breath sounds, CTA, No accessory muscle use Cardiovascular: S1, S2, + murmur Abdomen/GI:Soft, Non tender, Bowel sounds present Extremities/Musculoskeletal:normal inspection, no edema Neurologic/Psych:AAOX3, grossly no focal neurological deficits Skin: normal color, warm Results & Data Results & Data ([facility]) Vital Signs (Past 12 Hours) Vital Signs Temp Pulse Pulse Resp BP Pulse Ox O2 Del Method 10/19/21 15:03 54 L 10/19/21 12:40 36.7 C 61 18 136/57 L 94 Room Air 10/19/21 09:43 Room Air 10/19/21 08:19 37.0 C 76 17 128/60 94 Room Air 10/19/21 07:29 65 10/19/21 04:10 36.6 C 63 16 132/69 92 Room Air Laboratory Results Short CBC 10/19/21 Range/Units 06:05 WBC 9.85 (4.8-10.8) K/ul Hgb 11.7 L (12.0-16.0) g/dl Hct 33.4 L (34.1-44.9) % Plt Count 151 (130-400) K/uL BMP 10/19/21 06:05 Sodium 122 L Potassium 3.2 L Chloride 90 L Carbon Dioxide 25 BUN 15 Creatinine 1.01 Glucose 97 Calcium 8.1 L
[2021-10-19] MEDS: CETIRIZINE HCL 10 MG TABLET PO SCH (20:02)
[2021-10-19] MEDS: ROSUVASTATIN CALCIUM 10 MG TAB PO SCH (20:02)
--- NOTE | 2021-10-19 22:41 | Electrocardiogram Report ---
Test Reason : Blood Pressure : / mmHG Vent. Rate : 064 BPM Atrial Rate : 064 BPM P-R Int : 166 ms QRS Dur : 090 ms QT Int : 418 ms P-R-T Axes : -13 -05 -17 degrees QTc Int : 431 ms Normal sinus rhythm Left ventricular hypertrophy with repolarization abnormality Abnormal ECG When compared with ECG of 20-MAR-2019 21:13, No significant change was found Confirmed by Hong Lam ([id number]) on 10/19/2021 10:41:36 PM Referred By: Yumiko Paz Confirmed By:Hong Lam
[2021-10-20] MEDS: ONDANSETRON INJ 2 MG/ML 2 ML VIAL IV SCH ×5 (04:45→23:02)
[2021-10-20] MEDS: SUCRALFATE 1 GM/10 ML UDC PO SCH ×4 (07:37→20:29)
[2021-10-20] MEDS: carvediloL 6.25 MG TAB PO SCH ×2 (08:39→20:31)
[2021-10-20] MEDS: ASPIRIN 81 MG ECTAB PO SCH (08:39)
[2021-10-20] MEDS: lisinopril 10 MG TAB PO SCH ×2 (08:40→20:31)
[2021-10-20] MEDS: PANTOprazole 40 MG TAB PO SCH (08:40)
[2021-10-20] MEDS: APIXABAN 2.5 MG TAB PO SCH ×2 (08:40→20:31)
[2021-10-20] MEDS: CYANOCOBALAMIN (B-12) 500 MCG TABLET PO SCH (08:40)
[2021-10-20] MEDS: predniSONE 5 MG TAB PO SCH (08:40)
[2021-10-20] MEDS: MONTELUKAST SODIUM 10 MG TABLET PO SCH (08:40)
[2021-10-20] MEDS: CHOLECALCIFEROL 1,000 UNITS 25 MCG TAB PO SCH (08:40)
[2021-10-20] MEDS: BACLOFEN 10 MG TAB PO SCH (08:41)
[2021-10-20 09:25] LABS: BUN Creatinine Ratio 10.3 (10-20); Calcium 7.8 mg/dl (8.5-10.1); Creatinine Clr Calc Pharmacy 27.9 ml/min; Est GFR (Non-African American) 35.4 ml/min; Magnesium 1.7 mg/dl (1.7-2.4); Potassium 3.9 mmol/L (3.5-5.1)
[2021-10-20] MEDS: ACETAMINOPHEN 325 MG TAB PO PRN (10:17)
[2021-10-20] MEDS: SODIUM CHLORIDE 0.9% 1000ML 1,000 ML IV SCH ×2 (10:18→23:02)
--- NOTE | 2021-10-20 16:22 | Nephrology Progress Note ---
Date of Service October 20, 2021 Assessment & Plan Admission and Anticipated Discharge Date Admission Date: October 17, 2021 Subjective S--no new issues. Na rising nicely. PHYSICAL EXAMINATION: GENERAL: Elderly white female who is awake, alert, oriented x3. HEENT: Mucous membrane is moist. NECK: Supple. No jugular venous distention. VITAL SIGNS: Blood pressure is 128/60, pulse rate 76, temperature 37 degrees Celsius, 94% on room air. CHEST: Bilaterally clear to auscultation. CARDIOVASCULAR: S1 and S2, regular. ABDOMEN: Soft, nontender. EXTREMITIES: Show no edema. NEUROLOGIC: She is fully awake and alert and oriented x3 and was able to give me a detailed account of her medication list as well as her problem list. LABORATORY TEST: Na 122 to now 129 Chest x-ray, no acute cardiopulmonary disease. CT scan of the head, no acute finding. Urine test, not done yet. ASSESSMENT AND PLAN: An 86-year-old female admitted with nonspecific symptoms and was found to have new onset hyponatremia as well as hypertensive urgency. I have been consulted for hyponatremia. Hyponatremia--- she had a completely normal sodium on 10/13/2021, but four days later, at the time of admission, she had a serum sodium of 123. This is a very rapid drop in the serum sodium. She has been on hydrochlorothiazide for many years, so I do not believe that alone would cause this, but she was recently started on spironolactone and the combination of hydrochlorothiazide and spironolactone in a susceptible elderly female patient can cause sudden onset hyponatremia. I agree with stopping both the drugs for the time being. I would also give her a little bit of normal saline to account for the sodium deficit that could have arise from the combination of hydrochlorothiazide and spironola ctone.Her initial symptoms could very well be from hyponatremia as it happened very suddenly. Rec: 1 Continue NS same rate till AM. 2 Daily BMP now . Results & Data ([facility]) Vital Signs (Past 12 Hours) Vital Signs Temp Pulse Resp BP Pulse Ox O2 Del Method 10/20/21 10:58 36.7 C 66 18 86/68 L 96 Room Air 10/20/21 07:45 36.6 C 63 18 162/73 H 97 Room Air
--- NOTE | 2021-10-20 17:22 | Hospitalist Progress Note ---
Date of Service October 20, 2021 Assessment & Plan (1) Hypertensive urgency: (2) Hyponatremia: (3) Elevated troponin: (4) CAD (coronary artery disease): (5) Chronic kidney disease, stage III (moderate): (6) History of DVT (deep vein thrombosis): (7) PMR (polymyalgia rheumatica): (8) Hypercholesteremia: Plan Hypertensive urgency --CT Head:No acute intracerebral pathology. Mild cerebral cortical atrophy. Patient was non taking Aldactone as prescribed Continue carvedilol, lisinopril IV hydralazine as needed Spironolactone, HCTZ on hold due to Hyponatremia Monitor BP Hyponatremia Likely due to combination of HCTZ, Aldactone IV fluids as per Nephrology Monitor Sodium levels: 129 today Appreciate nephrology input Hypomagnesemia Replete as needed Elevated trop: EKG: NSR, TWI on lead III (no change from previous EKG) likely 2/2 demand ischemia Serial troponins do not show any evidence of ACS Patient denies chest pain, dyspnea CAD s/p CABG: continue Aspirin, statin Hx of DVT: continue Eliquis Anxiety/insomnia/PMR/GERD: continue home medications DVT Px: Eliquis Code Status: FULL CODE Admission and Anticipated Discharge Date Admission Date: October 17, 2021 Subjective Patient is seen and examined at bedside Sitting in chair during my encounter Offers no complaints Sodium levels improved to 129 Headache, dizziness, nausea resolved Denies chest pain, shortness of breath, abdominal pain Review of Systems Review of Systems: All systems reviewed & are unremarkable except as noted in Subjective Physical Exam Physical Exam: Physical Exam: Vitals signs as noted above General Appearance:Moderately built and nourished, no apparent distress Head: normocephalic, Atraumatic Eyes: normal inspection, EOMI Neck: supple, Trachea midline Respiratory/Chest: Normal breath sounds, CTA, No accessory muscle use Cardiovascular: S1, S2, + murmur Abdomen/GI:Soft, Non tender, Bowel sounds present Extremities/Musculoskeletal:normal inspection, no edema Neurologic/Psych:AAOX3, grossly no focal neurological deficits Skin: normal color, warm Results & Data Results & Data ([facility]) Vital Signs (Past 12 Hours) Vital Signs Temp Pulse Resp BP Pulse Ox O2 Del Method 10/20/21 10:58 36.7 C 66 18 86/68 L 96 Room Air 10/20/21 07:45 36.6 C 63 18 162/73 H 97 Room Air Laboratory Results [facility] 10/20/21 08:19 Sodium 129 L Potassium 3.9 D Chloride 100 Carbon Dioxide 24 BUN 14 Creatinine 1.36 H D Glucose 133 H Calcium 7.8 L
[2021-10-20] MEDS: CETIRIZINE HCL 10 MG TABLET PO SCH (20:32)
[2021-10-20] MEDS: ROSUVASTATIN CALCIUM 10 MG TAB PO SCH (20:33)
[2021-10-20] MEDS ORDERED: LABETALOL HCL IV 5 MG/ML 20ML IV STA (21:53)
[2021-10-21] MEDS: ONDANSETRON INJ 2 MG/ML 2 ML VIAL IV SCH ×4 (03:44→11:21)
[2021-10-21 07:24] LABS: BUN Creatinine Ratio 10.5 (10-20); Calcium 8.2 mg/dl (8.5-10.1); Est GFR (African American) 35.9 ml/min; Est GFR (Non-African American) 30.9 ml/min; Magnesium 1.7 mg/dl (1.7-2.4); Potassium 4.8 mmol/L (3.5-5.1)
[2021-10-21] MEDS: SUCRALFATE 1 GM/10 ML UDC PO SCH ×2 (08:13→11:21)
[2021-10-21] MEDS: predniSONE 5 MG TAB PO SCH (08:13)
[2021-10-21] MEDS: MONTELUKAST SODIUM 10 MG TABLET PO SCH (08:13)
[2021-10-21] MEDS: CHOLECALCIFEROL 1,000 UNITS 25 MCG TAB PO SCH (08:13)
[2021-10-21] MEDS: lisinopril 10 MG TAB PO SCH (08:13)
[2021-10-21] MEDS: CYANOCOBALAMIN (B-12) 500 MCG TABLET PO SCH (08:14)
[2021-10-21] MEDS: carvediloL 6.25 MG TAB PO SCH (08:14)
[2021-10-21] MEDS: APIXABAN 2.5 MG TAB PO SCH (08:14)
[2021-10-21] MEDS: PANTOprazole 40 MG TAB PO SCH (08:14)
[2021-10-21] MEDS: ASPIRIN 81 MG ECTAB PO SCH (08:14)
[2021-10-21] MEDS: BACLOFEN 10 MG TAB PO SCH (08:18)
--- NOTE | 2021-10-21 10:10 | Nephrology Progress Note ---
Date of Service October 21, 2021 Assessment & Plan Admission and Anticipated Discharge Date Admission Date: October 17, 2021 Subjective Subjective S--no new issues. Na rising nicely. But BP high and creat up a bit. PHYSICAL EXAMINATION: GENERAL: Elderly white female who is awake, alert, oriented x3. HEENT: Mucous membrane is moist. NECK: Supple. No jugular venous distention. VITAL SIGNS: Blood pressure is 128/60, pulse rate 76, temperature 37 degrees Celsius, 94% on room air. CHEST: Bilaterally clear to auscultation. CARDIOVASCULAR: S1 and S2, regular. ABDOMEN: Soft, nontender. EXTREMITIES: Show no edema. NEUROLOGIC: She is fully awake and alert and oriented x3 and was able to give me a detailed account of her medication list as well as her problem list. LABORATORY TEST: Na 122 to now 129 to 137 now. Chest x-ray, no acute cardiopulmonary disease. CT scan of the head, no acute finding. Urine test, not done yet. ASSESSMENT AND PLAN: An 86-year-old female admitted with nonspecific symptoms and was found to have new onset hyponatremia as well as hypertensive urgency. I have been consulted for hyponatremia. Hyponatremia--- from combination HCTZ and Aldactone. na went up easily with NS. Now hgih BP and rising creat Rec: 1 Stop NS 2 Daily BMP now 3 Hold Lisinopril given rising creat. 4 for now hydralazine 25 tid 5 Also Add Amlodipine 5 for high BP. 6 Do not restart HCTZ or Aldactone or Lisinopril till we have outpt labs. 7 Can be discharged with outpt labs early next week. Results & Data ([facility]) Vital Signs (Past 12 Hours) Vital Signs Temp Pulse Pulse Resp BP BP Pulse Ox 10/21/21 08:45 54 L 10/21/21 07:28 36.6 C 67 18 182/110 H 97 10/21/21 05:00 153/65 H 10/21/21 03:32 36.7 C 59 L 18 149/66 H 94 10/20/21 23:26 58 L 10/20/21 23:06 36.9 C 63 18 174/67 H 95 O2 Del Method 10/21/21 08:45 10/21/21 07:28 Room Air 10/21/21 05:00 10/21/21 03:32 Room Air 10/20/21 23:26 10/20/21 23:06 Room Air
[2021-10-21] MEDS ORDERED: amLODIPine BESYLATE 5 MG TAB PO SCH (10:15)
--- NOTE | 2021-10-21 12:02 | Hospitalist Progress Note ---
Date of Service October 21, 2021 Assessment & Plan (1) Hypertensive urgency: (2) Hyponatremia: (3) Elevated troponin: (4) CAD (coronary artery disease): (5) Chronic kidney disease, stage III (moderate): (6) History of DVT (deep vein thrombosis): (7) PMR (polymyalgia rheumatica): (8) Hypercholesteremia: Plan Hypertensive urgency --CT Head:No acute intracerebral pathology. Mild cerebral cortical atrophy. Patient was non taking Aldactone as prescribed Continue carvedilol, lisinopril IV hydralazine as needed Spironolactone, HCTZ on hold due to Hyponatremia --plan to discontinue upon discharge as well as recommended by Nephrology Monitor BP Start on amlodipine 5 mg daily Hyponatremia Likely due to combination of HCTZ, Aldactone IV fluids as per Nephrology Monitor Sodium levels: 137 today Appreciate nephrology input Needs follow-up with nephrology upon discharge Needs BMP check next week Hypomagnesemia Replete as needed Elevated trop: EKG: NSR, TWI on lead III (no change from previous EKG) likely 2/2 demand ischemia Serial troponins do not show any evidence of ACS Patient denies chest pain, dyspnea CAD s/p CABG: continue Aspirin, statin Hx of DVT: continue Eliquis Anxiety/insomnia/PMR/GERD: continue home medications DVT Px: Eliquis Code Status: FULL CODE Disposition Home Admission and Anticipated Discharge Date Admission Date: October 17, 2021 Subjective Patient is seen and examined at bedside Doing well today No complaints Sodium levels improved to 137 Denies chest pain, shortness of breath, abdominal pain Discussed with Nephrology today Review of Systems Review of Systems: All systems reviewed & are unremarkable except as noted in Subjective Physical Exam Physical Exam: Physical Exam: Vitals signs as noted above General Appearance:Moderately built and nourished, no apparent distress Head: normocephalic, Atraumatic Eyes: normal inspection, EOMI Neck: supple, Trachea midline Respiratory/Chest: Normal breath sounds, CTA, No accessory muscle use Cardiovascular: S1, S2, + murmur Abdomen/GI:Soft, Non tender, Bowel sounds present Extremities/Musculoskeletal:normal inspection, no edema Neurologic/Psych:AAOX3, grossly no focal neurological deficits Skin: normal color, warm Results & Data Results & Data ([facility]) Vital Signs (Past 12 Hours) Vital Signs Temp Pulse Pulse Resp BP BP Pulse Ox 10/21/21 11:44 171/65 H 10/21/21 08:45 54 L 10/21/21 07:28 36.6 C 67 18 182/110 H 97 10/21/21 05:00 153/65 H 10/21/21 03:32 36.7 C 59 L 18 149/66 H 94 O2 Del Method 10/21/21 11:44 10/21/21 08:45 10/21/21 07:28 Room Air 10/21/21 05:00 10/21/21 03:32 Room Air Laboratory Results BMP 10/21/21 05:37 Sodium 137 Potassium 4.8 D Chloride 106 Carbon Dioxide 28 BUN 16 Creatinine 1.52 H Glucose 97 Calcium 8.2 L
--- NOTE | 2021-10-21 12:30 | Discharge Summary ---
Date of Service October 21, 2021 Admission HPI Per Admitting Provider Pt is a 86 y/o F with hx of CAD s/p CABGx3, HTN, HLD, CKD III, b/l carotid stenosis, Mild aortic valve stenosis, Asthma, anxiety, Depression, hx of DVT on eliquis, PMR on prednisone, GERD came into the ER for 3 day hx of fatigue, dizziness and feeling shaky and elevated blood pressure since today morning. Pt stopped taking her aldactone due to dizziness and fatigue and today morning she noticed that her BP was 200s systolic. At bedside: pt denied any acute CP, SOB, light headedness or palpitation. Denied any recent fall or syncope. Has been compliant with her HTN meds and denied any recent URI, GI or symptoms. Admission Exam Per Admitting Provider Physical Exam Physical Exam:L General:.NAD, well developed, well nourished, average body habitus HEENT:.Normocephalic and atraumatic, Normal Conjunctiva, EOMI, Sclera is non-ic teric Lungs:.No signs of respiratory distress, CTA, no wheezing or crackles Heart:.systolic murmur,Normal S1, S2 Abdominal:.ND, Soft, NT MSK:.No deformities of UE and LE, No leg edema Psych:.AAOx3, normal affect Principal Diagnosis Hypertensive urgency Hyponatremia Hypomagnesemia Discharge Data Allergies Allergy/AdvReac Type Severity Reaction Status Date / Time domperidone Allergy Severe HEADACE, Verified 08/02/21 08:37 ITCHING, STOMACH PAIN lovastatin Allergy Severe MUSCLE PAIN Verified 08/02/21 08:37 niacin Allergy Severe ANAPHYLAXIS Verified 08/02/21 08:37 Sulfa (Sulfonamide Allergy Severe Tongue Verified 08/02/21 08:37 Antibiotics) Soreness,MOUTH/THROAT SWELLING Penicillins Allergy Intermediate Hives Verified 08/02/21 08:37 clarithromycin Allergy Mild Rash, Verified 08/02/21 08:37 Diarrhea , Shakiness doxycycline Allergy Unknown Unknown Verified 08/02/21 08:37 isosorbide Allergy Unknown Unknown Verified 08/02/21 08:37 amlodipine AdvReac Severe NAUSEA/VOMI Verified 08/02/21 08:37 TING atorvastatin AdvReac Intermediate MUSCLE Verified 08/02/21 08:37 ACHES Cipro AdvReac Intermediate Heart Races Verified 05/25/18 14:57 ciprofloxacin AdvReac Intermediate Heart Races Verified 08/02/21 08:37 metoclopramide AdvReac Intermediate Migraines Verified 08/02/21 08:37 ezetimibe AdvReac Mild Stomach Verified 08/02/21 08:37 Cramps gemfibrozil AdvReac Mild Nausea, Verified 08/02/21 08:37 Heaviness in extremities,Muscle fatigue morphine AdvReac Mild Nausea Verified 08/02/21 08:37 nitrofurantoin AdvReac Mild Headache/ Verified 08/02/21 08:37 Stomach pain Otkfmuc-QLB-HyR Reductase AdvReac Mild WEAKNESS Verified 08/02/21 08:37 Inhibitor IN ARMS [Zcldgaz-Psb-Kvo Reductase AND LEGS Inhibitor] Consultations 10/17/21 17:58 ED Decision to Admit Stat 10/19/21 08:05 Consult Nephrology Routine Ordered Studies 10/17/21 16:27 CT head/brain wo con Stat Hospital Course (1) Hypertensive urgency: (2) Hyponatremia: (3) Elevated troponin: (4) CAD (coronary artery disease): (5) Chronic kidney disease, stage III (moderate): (6) History of DVT (deep vein thrombosis): (7) PMR (polymyalgia rheumatica): (8) Hypercholesteremia: Plan Hypertensive urgency --CT Head:No acute intracerebral pathology. Mild cerebral cortical atrophy. Patient was non taking Aldactone as prescribed Continue carvedilol, lisinopril IV hydralazine as needed Spironolactone, HCTZ on hold due to Hyponatremia --plan to discontinue upon discharge as well as recommended by Nephrology Monitor BP Start on amlodipine 5 mg daily Hyponatremia Likely due to combination of HCTZ, Aldactone IV fluids as per Nephrology Monitor Sodium levels: 137 today Appreciate nephrology input Needs follow-up with nephrology upon discharge Needs BMP check next week Hypomagnesemia Replete as needed Elevated trop: EKG: NSR, TWI on lead III (no change from previous EKG) likely 2/2 demand ischemia Serial troponins do not show any evidence of ACS Patient denies chest pain, dyspnea CAD s/p CABG: continue Aspirin, statin Hx of DVT: continue Eliquis Anxiety/insomnia/PMR/GERD: continue home medications DVT Px: Eliquis Code Status: FULL CODE Disposition Home Total Time Total Time Spent Total Time Spent (In Minutes): 58 minutes Discharge Plan Discharge Items Patient Disposition: Home - Self-Care Reason For Visit: HTN URGENCY Discharge Diagnosis: Hypertensive urgency Hyponatremia Hypomagnesemia Activity: Per Instructions section Exercise/Sports: Gradually increase as tolerated Non-emergency contact: Primary Care Provider and Buffing Wheel Presser Call non-emergency contact if: you have any medication questions, your symptoms worsen, your pain is concerning for you and you have a fever Follow-up/Referrals: Yumiko Paz, [Primary Care Provider] - (Date & Time 10/26/2021 11:20 AM Provider Bola Mccrary MD Department Family Medicine [facility] ) Diet: Heart Healthy Addtl Attending Provider Instructions: --Follow up with your Primary Care Physician on 10/26/2021 11:20 AM --Follow up with your Buffing Wheel Presser in 2-3 weeks --Get Blood Test: Basic Metabolic Panel in 1 week and follow up with your Physician. Medication Changes: --Your Aldactone (spironolactone) and hydrochlorothiazide are discontinued as recommended by your canal equipment mechanic -- You are started on amlodipine 5 mg daily Further adjustment of your medications as per your primary care physician/canal equipment mechanic Seek immediate medical attention if your symptoms reoccur or worsen Please take all medications as instructed on discharge list below. Please call if you have any questions or problems. You can reach a [facility] hospitalist on duty at [facility] 24 hours a day by calling [phone] Pending Studies at Discharge: No Stand-Alone Forms: My [facility], Smoking Cessation Medications and DC Order Prescriptions: New amlodipine [Norvasc] 5 mg Tablet 5 mg PO QAM Qty: 30 1RF Continued prednisone 5 mg Tablet 5 mg PO QAM tramadol 50 mg Tablet 25 mg PO Q8 PRN (Reason: Pain, Severe) Rx Instructions: 1/2 tablet dose lorazepam 0.5 mg Tablet 0.5 mg PO HS PRN (Reason: Anxiety) Rx Instructions: 1 tablet at bedtime and once during the day if needed nitroglycerin [Nitrostat] 0.4 mg Tablet, Sublingual 1 tab Sublingual DAILY PRN (Reason: Chest Pain) coenzyme Q10 [CoQ-10] 100 mg Capsule 100 mg PO QAM rosuvastatin [Crestor] 10 mg Tablet 10 mg PO HS carvedilol 6.25 mg Tablet 6.25 mg PO BID cetirizine [Zyrtec] 10 mg Tablet 5 mg PO HS sucralfate [Carafate] 100 mg/mL suspension 10 ml PO QID lisinopril 10 mg Tablet 10 mg PO BID Eliquis 2.5 mg Tablet 2.5 mg PO BID omeprazole 40 mg capsule,delayed release(DR/EC) 40 mg PO DAILY aspirin 81 mg Tablet,Delayed Release (Dr/Ec) 81 mg PO DAILY meclizine 25 mg Tablet 25 mg PO TID PRN (Reason: Dizziness) baclofen 10 mg tablet 5 mg PO DAILY montelukast 10 mg tablet 10 mg PO DAILY acetaminophen [Tylenol Extra Strength] 500 mg Tablet 1,000 mg PO Q6H PRN (Reason: Fever Or Pain) cyanocobalamin (vitamin B-12) 500 mcg Tablet 500 mcg PO DAILY cholecalciferol (vitamin D3) [Vitamin D3] 25 mcg (1,000 unit) Tablet 50 mcg PO DAILY fluticasone propionate [Flonase] 50 mcg/actuation [place],Suspension 2 spray INTRANASAL DAILY Rx Instructions: administer into each nostril Discontinued hydrochlorothiazide 12.5 mg Tablet 12.5 mg PO QAM spironolactone 25 mg tablet 25 mg PO QAM Discharge Orders: Discharge Order (Routine); Ordered 10/21/21 Ordered By: Bladimir Khan Admission Data Admit Date/Time: 10/17/21 18:30 Attending Provider: Bladimir Khan Admit Provider: Bola Mccrary Primary Care Provider: Yumiko Paz Other Providers: Bola Mccrary ; Reagan Giang
[2021-10-21] MEDS ORDERED: hydrALAZINE HCL 25 MG TAB PO SCH (14:00)
== END 2021-10-21 13:48 | disposition home or self-care (01) | DRG 305 ==
LOC: ED 16:15 → SUATTDRO 18:30 → EDINP 18:30 → 2E 10-18 00:15
DX: Z88.2 Allergy status to sulfonamides; I25.10 Atherosclerotic heart disease of native coronary artery without angina pectoris; Z88.8 Allergy status to other drugs, medicaments and biological substances; M35.3 Polymyalgia rheumatica; T50.2X5A Adverse effect of carbonic-anhydrase inhibitors, benzothiadiazides and other diuretics, initial encounter; Z92.3 Personal history of irradiation; Z85.3 Personal history of malignant neoplasm of breast; E87.8 Other disorders of electrolyte and fluid balance, not elsewhere classified; Z79.01 Long term (current) use of anticoagulants; J45.909 Unspecified asthma, uncomplicated; N18.30 Chronic kidney disease, stage 3 unspecified; Z86.718 Personal history of other venous thrombosis and embolism; E87.1 Hypo-osmolality and hyponatremia; Z88.0 Allergy status to penicillin; Z95.1 Presence of aortocoronary bypass graft; Y92.009 Unspecified place in unspecified non-institutional (private) residence as the place of occurrence of the external cause; I50.32 Chronic diastolic (congestive) heart failure; Z79.52 Long term (current) use of systemic steroids; Z83.3 Family history of diabetes mellitus; I13.0 Hypertensive heart and chronic kidney disease with heart failure and stage 1 through stage 4 chronic kidney disease, or unspecified chronic kidney disease; E78.5 Hyperlipidemia, unspecified; K21.9 Gastro-esophageal reflux disease without esophagitis; I24.8 Other forms of acute ischemic heart disease; F41.9 Anxiety disorder, unspecified; Z88.1 Allergy status to other antibiotic agents; I10 Essential (primary) hypertension; I25.2 Old myocardial infarction; T50.0X5A Adverse effect of mineralocorticoids and their antagonists, initial encounter; Z88.5 Allergy status to narcotic agent; I16.0 Hypertensive urgency